=== PATIENT | male | born 1955 | race Hispanic/Latino ===

== ENCOUNTER 2017-02-15 15:12 | Observation (INO) | payer OTHER ==
[2017-02-15 15:12] VITALS: BMI 29.8
[2017-02-15 15:28] VITALS: RESP 18
--- NOTE | 2017-02-15 15:49 | ED PDOC ---
HPI: Psych/Substance Abuse Time Seen by Provider: 02/15/17 15:28 Chief Complaint (Nursing): Alcohol Ingestion Chief Complaint (Provider): ETOH History Per: Patient Additional Complaint(s): HPI: 61 year old patient, with a history of chest pain, coronary stent, hypertension, pancreatitis, CAD, CHF, diverticulitis, diabetes, and emphysema, presents to the ED staing, "I drink because I'm depressed, I want to kill myself." Pt slurring speech and (+) SOB. Past Medical History Reviewed: Historical Data, Nursing Documentation, Vital Signs Vital Signs: Last Vital Signs Temp 99.3 F 02/15/17 15:24 Pulse 84 02/15/17 15:24 Resp 18 02/15/17 15:24 BP 128/68 02/15/17 15:24 Pulse Ox 94 L 02/15/17 15:24 - Medical History PMH: Anemia (iron deficiency), Anxiety, Arthritis, Asthma, Benign Prostatic Hyperplasia, Bipolar Disorder, Bronchitis, CAD, CHF, COPD, Depression, Diabetes , Diverticulitis, Emphysema, Hepatitis (PATIENT STATED HE HAS HEPATITIS BUT COULD NOT RECALL WHICH ONE), HTN, Hypercholesterolemia, Hyperlipidemia, Hypothyroidism, Migraine, Pancreatitis, Pneumonia, Seizures, Sleep Apnea Denies: Chronic Kidney Disease - Surgical History Surgical History: CABG ((quadruple bypass) 2010), Coronary Stent - Family History Family History: States: Unknown Family Hx - Social History Alcohol: > 2 Drinks/Day - Immunization History Hx Tetanus Toxoid Vaccination: Yes Hx Influenza Vaccination: Yes Hx Pneumococcal Vaccination: Yes - Home Medications Home Medications: Ambulatory Orders Medication Instructions Recorded Aspirin [Ecotrin] 81 mg PO DAILY #30 tabec 11/21/16 Multivitamin [Daily Value] 1 each PO DAILY #30 tablet 11/21/16 Pantoprazole [Protonix EC Tab] 40 mg PO DAILY #30 ect 11/21/16 Pravastatin Sodium [Pravachol] 40 mg PO HS #30 tab 11/21/16 Tamsulosin [Flomax] 0.4 mg PO HS #30 cap 11/21/16 Metoprolol Succinate XL [Toprol XL] 50 mg PO BRK 12/10/16 Pletal 100 mg PO BID 12/10/16 Aclidinium [place] [Tudorza 1 puff INH BID 02/09/17 Pressair] Albuterol/Ipratropium [Duoneb 3 1 vial INH DAILY 02/09/17 mg/0.5 mg (3 ml) UD] Cilostazol [Pletal] 1 tab PO DAILY 02/09/17 Topiramate [Topamax] 50 mg PO BID 02/09/17 - Allergies Allergies/Adverse Reactions: Allergies Allergy/AdvReac Type Severity Reaction Status Date / Time No Known Allergies Allergy Verified 02/15/17 15:15 Review of Systems ROS Statement: Except As Marked, All Systems Reviewed And Found Negative Psych: Positive for: Suicidal ideation Physical Exam - Reviewed Nursing Documentation Reviewed: Yes Vital Signs Reviewed: Yes - Physical Exam Appears: Positive for: Well, Non-toxic, No Acute Distress Head Exam: Positive for: ATRAUMATIC, NORMAL INSPECTION, NORMOCEPHALIC Skin: Positive for: Normal Color, Warm, DRY Eye Exam: Positive for: EOMI, Normal appearance, PERRL ENT: Positive for: Normal ENT Inspection Neck: Positive for: Normal, Painless ROM Cardiovascular/Chest: Positive for: Regular Rate, Rhythm Respiratory: Positive for: CNT, Normal Breath Sounds Gastrointestinal/Abdominal: Positive for: Normal Exam, Bowel Sounds, Soft Back: Positive for: Normal Inspection Extremity: Positive for: Normal ROM Neurologic/Psych: Positive for: Alert, Oriented - Laboratory Results Result Diagrams: 02/15/17 16:20 02/15/17 16:20 - ECG O2 Sat by Pulse Oximetry: 94 Medical Decision Making Medical Decision Making: Pt placed on cardiac cath rn, vitals remain stable Alcohol resulted 344 Crisis made aware of evaluation upon sobriety Case endorsed to MAURILIO Chau at 20:00 pending sorbiety and crisis eval pt asleep on re-eval Disposition - Clinical Impression Clinical Impression: Alcohol abuse with alcohol-induced disorder - Patient ED Disposition Is Patient to be Admitted: No - Disposition Disposition: Transfer of Care ([facility]) Disposition Time: 19:22 Condition: STABLE - POA Present On Arrival: None
[2017-02-15 16:30] LABS: BASO # 0.1 K/uL (0.0-0.2); BASO % 1.8 % (0.0-2.0); EOS # 0.1 K/uL (0.0-0.7); EOS % 1.7 % (0.0-4.0); HEMATOCRIT 30.2 % (35.0-51.0); LYMPH # 1.3 K/uL (1.0-4.3); LYMPH % 26.1 % (20.0-40.0); MEAN CORPUSCULAR HEMOGLOBIN 22.8 pg (27.0-31.0); MEAN CORPUSCULAR HGB CONC 30.3 g/dL (33.0-37.0); MEAN PLATELET VOLUME 8.2 fl (7.2-11.7); MONO # 0.5 K/uL (0.0-0.8); MONO % 10.5 % (0.0-10.0); NEUT # 3.1 K/uL (1.8-7.0); NEUT % 59.9 % (50.0-75.0); WHITE BLOOD COUNT 5.1 K/uL (4.8-10.8)
[2017-02-15 16:41] LABS: URINE BILIRUBIN NEGATIVE (NEGATIVE); URINE BLOOD NEGATIVE (NEGATIVE); URINE COLOR STRAW (YELLOW); URINE GLUCOSE (UA) NEG (Normal); URINE KETONE NEGATIVE (NEGATIVE); URINE LEUKOCYTE ESTERASE NEG Leu/uL (Negative); URINE PROTEIN 30 mg/dL (NEGATIVE); URINE UROBILINOGEN 0.2-1.0 mg/dL (0.2-1.0); WBC URINE < 1 /hpf (0-5)
[2017-02-15 16:52] LABS: ALB/GLOB RATIO 1.1 (1.0-2.1); ALKALINE PHOSPHATASE 65 U/L (38-126); ALT/SGPT 39 U/L (21-72); AST/SGOT 57 U/L (17-59); BILIRUBIN,TOTAL 0.2 mg/dl (0.2-1.3); BLOOD UREA NITROGEN 8 mg/dl (9-20); CALCIUM 8.4 mg/dL (8.4-10.2); CARBON DIOXIDE 26 mmol/L (22-30); CHLORIDE 106 mmol/L (98-107); GFR AFRICAN-AMERICAN > 60; GLUCOSE,RANDOM 102 mg/dL (75-110); POTASSIUM 3.1 MMOL/L (3.6-5.0); SODIUM 145 mmol/l (132-148); TOTAL PROTEIN 7.2 G/DL (6.3-8.2)
[2017-02-15 17:04] LABS: ALCOHOL SERUM 344 mg/dl (0-10)
[2017-02-15] MEDS ORDERED: diaZEpam 10 mg/2 ml Inj ONE (19:20)
[2017-02-15] MEDS ORDERED: diaZEpam 10 mg/2 ml Inj IM ONE (19:24)
[2017-02-16 00:39] VITALS: BP 152/73; PULSE 76; TEMP 98.6; O2SAT 100
--- NOTE | 2017-02-16 02:40 | ED PDOC ---
- Laboratory Results Result Diagrams: 02/15/17 16:20 02/15/17 16:20 - ECG O2 Sat by Pulse Oximetry: 100 - Progress ED Course And Treament: Case endorsed to medical underwriter from Bert THORPE pending clinical sobriety/crisis eval 22:00 Patient sleeping; no distress 02/16/17 00:00 Patient sleeping, no distress 2:00 Patient awake, alert, oriented x 3. Ambulating steady gait. Tolerated juice. Patient evaluated by playground worker; does not meet criteria for admission at this time. Patient stable for discharge Disposition - Clinical Impression Clinical Impression: Alcohol abuse with alcohol-induced disorder - POA Present On Arrival: None - Disposition Disposition: Routine/Home Disposition Time: 02:42 Condition: STABLE
== END 2017-02-16 02:38 | disposition home or self-care (01) ==
LOC: H.ER 15:12 → H.EROBSV 15:49
PROVIDERS: ADMIT Emergency Medicine; ATTEND Emergency Medicine
DX: F10.19 Alcohol abuse with unspecified alcohol-induced disorder (principal); E03.9 Hypothyroidism, unspecified; E78.00 Pure hypercholesterolemia, unspecified; E78.5 Hyperlipidemia, unspecified; F31.9 Bipolar disorder, unspecified; E11.9 Type 2 diabetes mellitus without complications; I25.10 Atherosclerotic heart disease of native coronary artery without angina pectoris; I50.9 Heart failure, unspecified; I11.0 Hypertensive heart disease with heart failure; Y90.8 Blood alcohol level of 240 mg/100 ml or more; G47.30 Sleep apnea, unspecified; J44.9 Chronic obstructive pulmonary disease, unspecified; N40.0 Benign prostatic hyperplasia without lower urinary tract symptoms; D50.9 Iron deficiency anemia, unspecified; F32.9 Major depressive disorder, single episode, unspecified; F41.9 Anxiety disorder, unspecified; G43.909 Migraine, unspecified, not intractable, without status migrainosus; J18.9 Pneumonia, unspecified organism; M19.90 Unspecified osteoarthritis, unspecified site; R56.9 Unspecified convulsions; Z79.82 Long term (current) use of aspirin; Z95.1 Presence of aortocoronary bypass graft; Z95.5 Presence of coronary angioplasty implant and graft
CPT/HCPCS: 80053; 81003; 85025; 99283; G0378; G0480

== ENCOUNTER 2017-08-23 18:40 | Observation (INO) | payer MEDICARE, MEDICAID ==
[2017-08-23 18:40] VITALS: BMI 29.8
[2017-08-23] MEDS ORDERED: Multivitamin (MVI) 10 ML, Thiamine 100 MG, Folic Acid 1 MG in Sodium Chloride 0.9% 1,00... IV ONE (19:39)
[2017-08-23 20:33] LABS: BASO # 0.1 K/uL (0.0-0.2); BASO % 1.6 % (0.0-2.0); EOS # 0.1 K/uL (0.0-0.7); EOS % 2.5 % (0.0-4.0); HEMATOCRIT 35.2 % (35.0-51.0); LYMPH # 1.5 K/uL (1.0-4.3); LYMPH % 32.6 % (20.0-40.0); MEAN CORPUSCULAR HEMOGLOBIN 25.2 pg (27.0-31.0); MEAN CORPUSCULAR HGB CONC 31.2 g/dL (33.0-37.0); MONO # 0.6 K/uL (0.0-0.8); MONO % 13.3 % (0.0-10.0); NEUT # 2.4 K/uL (1.8-7.0); RED CELL DISTRIBUTION WIDTH 19.1 % (11.5-14.5); WHITE BLOOD COUNT 4.7 K/uL (4.8-10.8)
[2017-08-23 20:45] LABS: ALCOHOL SERUM 89 mg/dl (0-10); ALKALINE PHOSPHATASE 87 U/L (38-126); ALT/SGPT 35 U/L (21-72); AST/SGOT 36 U/L (17-59); BILIRUBIN,TOTAL 0.2 mg/dl (0.2-1.3); BLOOD UREA NITROGEN 7 mg/dl (9-20); CALCIUM 8.7 mg/dL (8.4-10.2); CARBON DIOXIDE 24 mmol/L (22-30); CHLORIDE 109 mmol/L (98-107); GFR AFRICAN-AMERICAN > 60; GLUCOSE,RANDOM 97 mg/dL (75-110); POTASSIUM 3.5 MMOL/L (3.6-5.0); SODIUM 144 mmol/l (132-148); TOTAL PROTEIN 7.3 G/DL (6.3-8.2)
--- NOTE | 2017-08-23 20:59 | ED PDOC ---
HPI: Chest Pain Time Seen by Provider: 08/23/17 19:21 Chief Complaint (Nursing): Chest Pain Chief Complaint (Provider): chest pain History Per: Patient History/Exam Limitations: no limitations Onset/Duration Of Symptoms: Hrs Current Symptoms Are (Timing): Still Present Quality: "Pain" Additional History Per: Patient Additional Complaint(s): 61 y/o male presents with left-sided chest pain x 2 hours. Patient states he was cooking dinner when symptoms started, which have been constant since then. Associated nausea. Patient admits to drinking today, states he drinks daily. Denies fever, cough, congestion, vomiting, shortness of breath, palpitations, abdominal pain, changes in bowel movements, recent travel, sick contacts. Past Medical History Reviewed: Historical Data, Nursing Documentation, Vital Signs Vital Signs: Last Vital Signs Temp 98.2 F 08/24/17 05:22 Pulse 80 08/24/17 05:22 Resp 18 08/24/17 05:22 BP 172/77 H 08/24/17 05:22 Pulse Ox 96 08/24/17 05:22 - Medical History PMH: Anemia (iron deficiency), Anxiety, Arthritis, Asthma, Benign Prostatic Hyperplasia, Bipolar Disorder, Bronchitis, CAD, CHF, COPD, Depression, Diabetes , Diverticulitis, Emphysema, Hepatitis (PATIENT STATED HE HAS HEPATITIS BUT COULD NOT RECALL WHICH ONE), HTN, Hypercholesterolemia, Hyperlipidemia, Hypothyroidism, Migraine, Pancreatitis, Pneumonia, Seizures, Sleep Apnea Denies: HIV, Chronic Kidney Disease, Sexually Transmitted Disease - Surgical History Surgical History: CABG ((quadruple bypass) 2010), Coronary Stent - Family History Family History: States: Unknown Family Hx - Immunization History Hx Tetanus Toxoid Vaccination: Yes Hx Influenza Vaccination: Yes Hx Pneumococcal Vaccination: Yes - Home Medications Home Medications: Ambulatory Orders Medication Instructions Recorded Gabapentin [Neurontin] 300 mg PO TID #90 cap 02/26/17 Topiramate [Topamax] 100 mg PO BID #60 tab 02/26/17 Aspirin [Lo-Dose Aspirin EC] 81 mg PO DAILY 08/23/17 Losartan [Cozaar] 50 mg PO DAILY 08/23/17 - Allergies Allergies/Adverse Reactions: Allergies Allergy/AdvReac Type Severity Reaction Status Date / Time No Known Allergies Allergy Verified 08/23/17 18:45 ANISHA Risk Score for UA/NSTEMI - ANISHA Risk Score Age > 64: NO 3 or more CAD Risk Factors: YES Known CAD (Stenosis greater than 50%): YES Aspirin use in past 7 days: NO Severe Angina: NO EKG ST changes greater than 0.5mm: NO Positive Cardiac Marker: NO ANISHA Score: 2 Risk %: 8% Wells Criteria for PE - Wells Criteria for Pulmonary Embolism Clinical Signs and Symptoms of DVT: No P.E is #1 Diagnosis, or Equally Likely: No Heart Rate >100: No Immobilization at least 3 days;Surgery previous 4 weeks: No Previous, objectively diagnosed PE or DVT: No Hemoptysis: No Malignancy w/treatment within 6 months, or palliative: No Total Score: 0 Review of Systems ROS Statement: Except As Marked, All Systems Reviewed And Found Negative Cardiovascular: Positive for: Chest Pain Physical Exam - Reviewed Nursing Documentation Reviewed: Yes Vital Signs Reviewed: Yes - Physical Exam Appears: Positive for: Well, Non-toxic, No Acute Distress Head Exam: Positive for: ATRAUMATIC, NORMAL INSPECTION, NORMOCEPHALIC Skin: Positive for: Normal Color Eye Exam: Positive for: Normal appearance ENT: Positive for: Normal ENT Inspection Cardiovascular/Chest: Positive for: Regular Rate, Rhythm Respiratory: Positive for: Normal Breath Sounds Gastrointestinal/Abdominal: Positive for: Normal Exam Back: Positive for: Normal Inspection Extremity: Positive for: Normal ROM Neurologic/Psych: Positive for: Alert, Oriented - Laboratory Results Result Diagrams: 08/23/17 20:27 08/23/17 20:27 - ECG ECG: Positive for: Viewed By Me (reviewed by ED attending) ECG Rhythm: Positive for: Sinus Rhythm, Nonspecific Changes O2 Sat by Pulse Oximetry: 99 Pulse Ox Interpretation: Normal - Radiology X-Ray: Viewed By Me X-Ray Interpretation: No Acute Disease - Progress ED Course And Treament: labs, ekg, chest xray, asa PO, IV zofran, IV pepcid, IV fluids, IV banana bag Case discussed with Dr. Feldman for placement in tele observation for chest pain Disposition - Clinical Impression Clinical Impression: Chest pain, Alcohol dependence - Patient ED Disposition Is Patient to be Admitted: Yes - Disposition Disposition Time: 21:05 Condition: FAIR
[2017-08-23] MEDS ORDERED: Sodium Chloride 0.9% 1,000 ML IV STA (21:13)
[2017-08-24] MEDS: Sodium Chloride 0.9% 1,000 ML IV SCH ×2 (02:17→15:07)
[2017-08-24 05:38] LABS: BASO # 0.1 K/uL (0.0-0.2); EOS # 0.2 K/uL (0.0-0.7); EOS % 2.4 % (0.0-4.0); HEMATOCRIT 34.3 % (35.0-51.0); LYMPH # 1.5 K/uL (1.0-4.3); LYMPH % 20.1 % (20.0-40.0); MEAN CELL VOLUME 81.5 fl (80.0-94.0); MEAN CORPUSCULAR HEMOGLOBIN 24.8 pg (27.0-31.0); MEAN CORPUSCULAR HGB CONC 30.5 g/dL (33.0-37.0); MEAN PLATELET VOLUME 8.6 fl (7.2-11.7); MONO # 0.8 K/uL (0.0-0.8); MONO % 11.2 % (0.0-10.0); NEUT # 4.7 K/uL (1.8-7.0); NEUT % 65.3 % (50.0-75.0); RED CELL DISTRIBUTION WIDTH 18.5 % (11.5-14.5); WHITE BLOOD COUNT 7.3 K/uL (4.8-10.8)
[2017-08-24 06:09] LABS: BLOOD UREA NITROGEN 6 mg/dl (9-20); CALCIUM 8.2 mg/dL (8.4-10.2); CARBON DIOXIDE 26 mmol/L (22-30); CHLORIDE 109 mmol/L (98-107); CHOLESTEROL 194 mg/dL (0-199); GFR AFRICAN-AMERICAN > 60; GLUCOSE,RANDOM 83 mg/dL (75-110); MAGNESIUM 1.4 MG/DL (1.6-2.3); POTASSIUM 3.5 MMOL/L (3.6-5.0); SODIUM 143 mmol/l (132-148)
[2017-08-24 06:34] LABS: THYROID STIMULATING HORMONE 2.84 mIU/ML (0.46-4.68)
[2017-08-24] MEDS: Insulin Lispro (humaLOG) 100 Units/ml Inj SC SCH ×2 (06:42→12:00)
--- NOTE | 2017-08-24 08:29 | RAD ---
HISTORY: chest pain COMPARISON: Portable chest 11/05/2015. TECHNIQUE: Chest PA and lateral FINDINGS: LUNGS: Linear atelectasis or fibrosis is seen at the left base. No alveolar infiltrate bilaterally. PLEURA: No significant pleural effusion identified. No pneumothorax apparent. CARDIOVASCULAR: Cardiomegaly appears stable. No pulmonary derangement evident. Post CABG changes are again identified including sternotomy wires and mediastinal OSSEOUS STRUCTURES: Surgical clips. VISUALIZED UPPER ABDOMEN: Normal. OTHER FINDINGS: None. IMPRESSION: No interval acute cardiopulmonary disease appreciated.No acute infiltrate bilaterally. Linear atelectasis or fibrosis left base.
[2017-08-24] MEDS ORDERED: Enoxaparin 40 mg Syringe SC SCH (09:00)
--- NOTE | 2017-08-24 09:21 | CP.PCM.CON ---
History of Present Illness - History of Present Illness History of Present Illness: This 61-year-old man was hospitalized last night from the emergency room after he complained of chest discomfort intermittently poorly responsive to sublingual nitroglycerin. The patient gives history of being a diabetic and a heavy smoker for number of years and also admits to having emphysema as well as severe claudication on walking approximately one block. He is aware off poor arterial blood flow to his legs. He gives history of having suffered 2 myocardial infarcts before he underwent coronary bypass graft surgery in 2010. The patient required stenting of posterior descending artery in May 2015. A nuclear stress test in June 2017 did not show any significant myocardial ischemia. By his own admission the patient is noncompliant as far as his glycemic control and regularity of taking his medications and avoiding smoking is concerned. He does not describe symptoms of congestive cardiac failure in the form of orthopnea. The patient has had numerous visits to the emergency room at [facility] and to this institution as well. Physical examination shows a middle aged man sitting up in the bed eating breakfast. He complains of a mild sense of discomfort in the left pectoral region which is reproduced by gently pressing in this region as well as movement of the left shoulder is also mildly uncomfortable reproducing discomfort that he describes off and on as an outpatient. He was afebrile and breathing at 16-18 breaths per minute with a heart rate of 78 bpm and regular and a blood pressure of 164/70 mmHg. His jugular venous pressure was not elevated and there was no edema hour his lower extremities. The pedal pulses were not palpable. There were no carotid bruits. A scar of sternotomy was evident. His extremities were warm. His nailbeds were pink. No central or peripheral cyanosis was evident. [place] was not palpable. The first and second heart sounds were normal with a brief apical systolic murmur suggestive of mitral regurgitation. There were scattered rhonchi all over his chest no rales were audible. Abdomen was soft given and spleen are not palpable. His electrocardiogram showed sinus rhythm with poor progression of R wave from V1 to V3 suggestive of an old septal wall myocardial infarction. There were nonspecific ST-T changes. Lab results showed no evidence of elevated troponin indicatingthat no myocyte injury has occurred. The rest of his labs were noted Impression: Left pectoral pain probably of chest wall origin with no evidence of acute coronary syndrome in a patient with known coronary artery disease with prior myocardial infarcts and status post coronary bypass graft surgery and status post coronary stenting. Peripheral arterial disease. Diabetes mellitus. Chronic cigarette use with emphysema. History of alcohol abuse. In the last set of cardiac enzymes is normal, the patient may be allowed to return home. A recent nuclear stress test in June as indicated that myocardial perfusion patterns appears stable at this juncture. The patient can be managed as an outpatient. I stressed the importance of quitting smoking given his multiple circulatory challenges and presence of diabetes mellitus. Past Patient History - Infectious Disease Hx of Infectious Diseases: None - Past Medical History & Family History Past Medical History?: Yes - Past Social History Smoking Status: Heavy Smoker > 10 Cigarettes Daily - CARDIAC Hx Congestive Heart Failure: Yes Hx Hypercholesterolemia: Yes Hx Hypertension: Yes - PULMONARY Hx Asthma: Yes Hx Bronchitis: Yes Hx Chronic Obstructive Pulmonary Disease (COPD): Yes Hx Emphysema: Yes Hx Pneumonia: Yes Hx Sleep Apnea: Yes - NEUROLOGICAL Hx Migraine: Yes Hx Seizures: Yes - HEENT Hx HEENT Problems: No - RENAL Hx Chronic Kidney Disease: No - ENDOCRINE/METABOLIC Hx Hypothyroidism: Yes - HEMATOLOGICAL/ONCOLOGICAL Hx Anemia: Yes (iron deficiency) Hx Human Immunodeficiency Virus (HIV): No - INTEGUMENTARY Hx Dermatological Problems: No - MUSCULOSKELETAL/RHEUMATOLOGICAL Hx Arthritis: Yes - GASTROINTESTINAL Hx Diverticulitis: Yes Hx Pancreatitis: Yes - GENITOURINARY/GYNECOLOGICAL Hx Sexually Transmitted Disorders: No - PSYCHIATRIC Hx Anxiety: Yes Hx Bipolar Disorder: Yes Hx Depression: Yes - SURGICAL HISTORY Hx Coronary Artery Bypass Graft: Yes ((quadruple bypass) 2010) Hx Coronary Stent: Yes - ANESTHESIA Hx Anesthesia: Yes Hx Anesthesia Reactions: No Hx Malignant Hyperthermia: No Meds Allergies/Adverse Reactions: Allergies Allergy/AdvReac Type Severity Reaction Status Date / Time No Known Allergies Allergy Verified 08/23/17 18:45 - Medications Medications: Current Medications Aspirin (Aspirin) 325 mg PO DAILY [facility] Atorvastatin Calcium (Lipitor) 20 mg PO HS [facility] Chlordiazepoxide (Librium) 20 mg PO Q8 [facility] Last Admin: 08/24/17 06:35 Dose: 20 mg Enoxaparin Sodium (Lovenox) 40 mg SC DAILY [facility] PRN Reason: Protocol Folic Acid (Folic Acid) 1 mg PO DAILY [facility] Gabapentin (Neurontin) 300 mg PO TID [facility] Sodium Chloride (Sodium Chloride 0.9%) 1,000 mls @ 80 mls/hr IV .[id number] [facility] Stop: 08/25/17 00:45 Last Admin: 08/24/17 02:17 Dose: 80 mls/hr Insulin Human Lispro (Humalog) 0 units SC ACCU-CHECK [facility] PRN Reason: Protocol Last Admin: 08/24/17 06:42 Dose: Not Given Losartan Potassium (Cozaar) 50 mg PO DAILY [facility] Thiamine HCl (Vitamin B1 Tab) 100 mg PO DAILY [facility] Topiramate (Topamax) 100 mg PO BID [facility] Results - Vital Signs Recent Vital Signs: Last Vital Signs Temp 98.4 F 08/24/17 07:54 Pulse 80 08/24/17 07:54 Resp 18 08/24/17 07:54 BP 177/77 H 08/24/17 07:54 Pulse Ox 96 08/24/17 07:54 - Labs Result Diagrams: 08/24/17 04:25 08/24/17 04:25 Labs: Laboratory Results - last 24 hr 08/23/17 08/23/17 08/23/17 20:27 20:27 23:03 WBC 4.7 L RBC 4.34 L Hgb 11.0 L Hct 35.2 MCV 81.0 D MCH 25.2 L MCHC 31.2 L RDW 19.1 H Plt Count 152 MPV 8.0 Neut % (Auto) 50.0 Lymph % (Auto) 32.6 [place] % (Auto) 13.3 H Eos % (Auto) 2.5 Baso % (Auto) 1.6 Neut # 2.4 Lymph # 1.5 [place] # 0.6 Eos # 0.1 Baso # 0.1 Sodium 144 Potassium 3.5 L Chloride 109 H Carbon Dioxide 24 Anion Gap 15 BUN 7 L Creatinine 0.8 Est GFR ( Amer) > 60 Est GFR (Non-Af Amer) > 60 Random Glucose 97 Calcium 8.7 Magnesium Total Bilirubin 0.2 AST 36 ALT 35 Alkaline Phosphatase 87 Troponin I 0.0350 Total Protein 7.3 Albumin 3.7 Globulin 3.6 Albumin/Globulin Ratio 1.0 Triglycerides Cholesterol LDL Cholesterol Direct HDL Cholesterol TSH 3rd Generation Urine Opiates Screen Negative Urine Methadone Screen Negative Ur Barbiturates Screen Negative Ur Phencyclidine Scrn Negative Ur Amphetamines Screen Negative U Benzodiazepines Scrn Negative U Oth Cocaine Metabols Negative U Cannabinoids Screen Negative Alcohol, Quantitative 89 H 08/24/17 08/24/17 04:25 04:25 WBC 7.3 D RBC 4.21 L Hgb 10.5 L Hct 34.3 L MCV 81.5 MCH 24.8 L MCHC 30.5 L RDW 18.5 H Plt Count 130 MPV 8.6 Neut % (Auto) 65.3 Lymph % (Auto) 20.1 [place] % (Auto) 11.2 H Eos % (Auto) 2.4 Baso % (Auto) 1.0 Neut # 4.7 Lymph # 1.5 [place] # 0.8 Eos # 0.2 Baso # 0.1 Sodium 143 Potassium 3.5 L Chloride 109 H Carbon Dioxide 26 Anion Gap 12 BUN 6 L Creatinine 0.9 Est GFR ( Amer) > 60 Est GFR (Non-Af Amer) > 60 Random Glucose 83 Calcium 8.2 L Magnesium 1.4 L Total Bilirubin AST ALT Alkaline Phosphatase Troponin I 0.0460 Total Protein Albumin Globulin Albumin/Globulin Ratio Triglycerides 52 D Cholesterol 194 LDL Cholesterol Direct 129 HDL Cholesterol 57 TSH 3rd Generation 2.84 Urine Opiates Screen Urine Methadone Screen Ur Barbiturates Screen Ur Phencyclidine Scrn Ur Amphetamines Screen U Benzodiazepines Scrn U Oth Cocaine Metabols U Cannabinoids Screen Alcohol, Quantitative
[2017-08-24] MEDS ORDERED: Magnesium Oxide 400 mg Tab UD PO SCH (13:30)
--- NOTE | 2017-08-24 15:34 | CP.PCM.HP ---
History of Present Illness - History of Present Illness History of Present Illness: CC: Chest Pain History of Present Illness: 61 y/o male presents with left-sided chest pain x 2 hours. Patient states he was cooking dinner when symptoms started, which have been constant since then. Associated nausea. Patient admits to drinking today, states he drinks daily. Denies fever, cough, congestion, vomiting, shortness of breath, palpitations, abdominal pain, changes in bowel movements, recent travel, sick contacts. Tool Setter evaluated the patient and cleared for d/c home as Recent extensive Cardiac work up was negative. Alessandro TTE showed EFF about 55%. COPD on Home Oxygen. Continue to smoke and ETOH use Present on Admission - Present on Admission Any Indicators Present on Admission: No History of DVT/PE: No History of Uncontrolled Diabetes: No Urinary Catheter: No Decubitus Ulcer Present: No Review of Systems - Review of Systems All systems: reviewed and no additional remarkable complaints except Past Patient History - Infectious Disease Hx of Infectious Diseases: None - Past Medical History & Family History Past Medical History?: Yes Past Family History: Reviewed and not pertinent - Past Social History Smoking Status: Heavy Smoker > 10 Cigarettes Daily Alcohol: > 2 Drinks/Day Drugs: Denies - CARDIAC Hx Cardiac Disorders: Yes Hx Congestive Heart Failure: No Hx Hypercholesterolemia: Yes Hx Hypertension: Yes Other/Comment: CAD - PULMONARY Hx Asthma: Yes Hx Bronchitis: Yes Hx Chronic Obstructive Pulmonary Disease (COPD): Yes Hx Emphysema: Yes Hx Pneumonia: Yes Hx Sleep Apnea: Yes - NEUROLOGICAL Hx Migraine: Yes Hx Seizures: Yes - HEENT Hx HEENT Problems: No - RENAL Hx Chronic Kidney Disease: No - ENDOCRINE/METABOLIC Hx Hypothyroidism: Yes - HEMATOLOGICAL/ONCOLOGICAL Hx Anemia: Yes (iron deficiency) Hx Human Immunodeficiency Virus (HIV): No - INTEGUMENTARY Hx Dermatological Problems: No - MUSCULOSKELETAL/RHEUMATOLOGICAL Hx Arthritis: Yes - GASTROINTESTINAL Hx Diverticulitis: Yes Hx Pancreatitis: Yes - GENITOURINARY/GYNECOLOGICAL Hx Sexually Transmitted Disorders: No - PSYCHIATRIC Hx Anxiety: Yes Hx Bipolar Disorder: Yes Hx Depression: Yes - SURGICAL HISTORY Hx Coronary Artery Bypass Graft: Yes ((quadruple bypass) 2010) Hx Coronary Stent: Yes - ANESTHESIA Hx Anesthesia: Yes Hx Anesthesia Reactions: No Hx Malignant Hyperthermia: No Meds Home Medications: Home Medication List Medication Instructions Recorded Confirmed Type Folic Acid 1 mg PO DAILY #30 tab 08/24/17 Rx Thiamine [Vitamin B1 Tab] 100 mg PO DAILY tab 08/24/17 Rx Allergies/Adverse Reactions: Allergies Allergy/AdvReac Type Severity Reaction Status Date / Time No Known Allergies Allergy Verified 08/23/17 18:45 Physical Exam - Constitutional Appears: Well, No Acute Distress - Head Exam Head Exam: ATRAUMATIC, NORMAL INSPECTION, NORMOCEPHALIC - Eye Exam Eye Exam: EOMI, Normal appearance, PERRL Pupil Exam: NORMAL ACCOMODATION, PERRL - ENT Exam ENT Exam: Mucous Membranes Moist, Normal Exam - Neck Exam Neck exam: Positive for: Full Rom, Normal Inspection - Respiratory Exam Respiratory Exam: Clear to Auscultation Bilateral, NORMAL BREATHING PATTERN - Cardiovascular Exam Cardiovascular Exam: REGULAR RHYTHM, +S1, +S2 - GI/Abdominal Exam GI & Abdominal Exam: Normal Bowel Sounds, Soft. absent: Guarding, Tenderness - Extremities Exam Extremities exam: Positive for: normal inspection. Negative for: calf tenderness - Neurological Exam Neurological exam: Alert, CN II-XII Intact, Normal Gait, Oriented x3, Reflexes Normal - Psychiatric Exam Psychiatric exam: Normal Affect, Normal Mood - Skin Skin Exam: Dry, Intact, Normal Color, Warm Results - Vital Signs Recent Vital Signs: Last Vital Signs Temp 99.4 F 08/24/17 15:32 Pulse 71 08/24/17 15:32 Resp 18 08/24/17 15:32 BP 160/78 H 08/24/17 15:32 Pulse Ox 96 08/24/17 15:32 - Labs Result Diagrams: 08/24/17 04:25 08/24/17 04:25 Labs: Laboratory Results - last 24 hr 08/23/17 08/23/17 08/23/17 20:27 20:27 23:03 WBC 4.7 L RBC 4.34 L Hgb 11.0 L Hct 35.2 MCV 81.0 D MCH 25.2 L MCHC 31.2 L RDW 19.1 H Plt Count 152 MPV 8.0 Neut % (Auto) 50.0 Lymph % (Auto) 32.6 Mcdonald % (Auto) 13.3 H Eos % (Auto) 2.5 Baso % (Auto) 1.6 Neut # 2.4 Lymph # 1.5 Mcdonald # 0.6 Eos # 0.1 Baso # 0.1 Sodium 144 Potassium 3.5 L Chloride 109 H Carbon Dioxide 24 Anion Gap 15 BUN 7 L Creatinine 0.8 Est GFR ( Amer) > 60 Est GFR (Non-Af Amer) > 60 POC Glucose (mg/dL) Random Glucose 97 Hemoglobin A1c Calcium 8.7 Magnesium Total Bilirubin 0.2 AST 36 ALT 35 Alkaline Phosphatase 87 Troponin I 0.0350 Total Protein 7.3 Albumin 3.7 Globulin 3.6 Albumin/Globulin Ratio 1.0 Triglycerides Cholesterol LDL Cholesterol Direct HDL Cholesterol TSH 3rd Generation Urine Opiates Screen Negative Urine Methadone Screen Negative Ur Barbiturates Screen Negative Ur Phencyclidine Scrn Negative Ur Amphetamines Screen Negative U Benzodiazepines Scrn Negative U Oth Cocaine Metabols Negative U Cannabinoids Screen Negative Alcohol, Quantitative 89 H 08/24/17 08/24/17 08/24/17 04:25 04:25 04:25 WBC 7.3 D RBC 4.21 L Hgb 10.5 L Hct 34.3 L MCV 81.5 MCH 24.8 L MCHC 30.5 L RDW 18.5 H Plt Count 130 MPV 8.6 Neut % (Auto) 65.3 Lymph % (Auto) 20.1 Mcdonald % (Auto) 11.2 H Eos % (Auto) 2.4 Baso % (Auto) 1.0 Neut # 4.7 Lymph # 1.5 Mcdonald # 0.8 Eos # 0.2 Baso # 0.1 Sodium 143 Potassium 3.5 L Chloride 109 H Carbon Dioxide 26 Anion Gap 12 BUN 6 L Creatinine 0.9 Est GFR ( Amer) > 60 Est GFR (Non-Af Amer) > 60 POC Glucose (mg/dL) Random Glucose 83 Hemoglobin A1c 5.1 Calcium 8.2 L Magnesium 1.4 L Total Bilirubin AST ALT Alkaline Phosphatase Troponin I 0.0460 Total Protein Albumin Globulin Albumin/Globulin Ratio Triglycerides 52 D Cholesterol 194 LDL Cholesterol Direct 129 HDL Cholesterol 57 TSH 3rd Generation 2.84 Urine Opiates Screen Urine Methadone Screen Ur Barbiturates Screen Ur Phencyclidine Scrn Ur Amphetamines Screen U Benzodiazepines Scrn U Oth Cocaine Metabols U Cannabinoids Screen Alcohol, Quantitative 08/24/17 08/24/17 08/24/17 06:38 11:11 12:30 WBC RBC Hgb Hct MCV MCH MCHC RDW Plt Count MPV Neut % (Auto) Lymph % (Auto) Mcdonald % (Auto) Eos % (Auto) Baso % (Auto) Neut # Lymph # Mcdonald # Eos # Baso # Sodium Potassium Chloride Carbon Dioxide Anion Gap BUN Creatinine Est GFR ( Amer) Est GFR (Non-Af Amer) POC Glucose (mg/dL) 85 97 Random Glucose Hemoglobin A1c Calcium Magnesium Total Bilirubin AST ALT Alkaline Phosphatase Troponin I 0.0380 Total Protein Albumin Globulin Albumin/Globulin Ratio Triglycerides Cholesterol LDL Cholesterol Direct HDL Cholesterol TSH 3rd Generation Urine Opiates Screen Urine Methadone Screen Ur Barbiturates Screen Ur Phencyclidine Scrn Ur Amphetamines Screen U Benzodiazepines Scrn U Oth Cocaine Metabols U Cannabinoids Screen Alcohol, Quantitative Assessment & Plan (1) Chest pain Assessment and Plan: ACS Ruled out Recent Cardiac Stress test and Cardiac Cath done were negative Tool Setter Cleared the patient for D/C Status: Chronic Priority: Low (2) Alcohol dependence Status: Chronic (3) CAD (coronary artery disease) Status: Chronic (4) Moderate major depression, single episode Status: Chronic Priority: Low
[2017-08-24 19:22] VITALS: BP 172/74; PULSE 80; RESP 19; TEMP 99.8; O2SAT 97
--- NOTE | 2017-08-25 09:52 | CARD ---
APPROVED REPORT EXAM: Two-dimensional and M-mode echocardiogram with Doppler and color Doppler. Other Information Quality : GoodRhythm : NSR INDICATION Chest Pain Surgery/Intervention CABG: Date: 2010 2D DIMENSIONS IVSd1.01 (0.7-1.1cm)LVDd4.32 (3.9-5.9cm) LVOT Diameter2.28 (1.8-2.4cm)PWd1.36 (0.7-1.1cm) IVSs1.55 (0.8-1.2cm)LVDs3.29 (2.5-4.0cm) FS (%) 23.8 %PWs1.11 (0.8-1.2cm) M-Mode DIMENSIONS Left Atrium (MM)5.03 (2.5-4.0cm)IVSd1.47 (0.7-1.1cm) Aortic Root3.35 (2.2-3.7cm)LVDd4.24 (4.0-5.6cm) Aortic Cusp Exc.1.62 (1.5-2.0cm)PWd1.21 (0.7-1.1cm) IVSs1.71 cmFS (%) 38 % LVDs2.65 (2.0-3.8cm)PWs1.88 cm Mitral Valve MV E Oukmahsx543.4cm/sMV DECEL BPFQ640thPN A Rnlcijsy14.9cm/s MV MHS65lvT/A ratio1.7MVA (PHT)4.52cm2 TDI Medial E' Peak V8.72cm/sE/Lateral E'0.0E/Medial E'15.4 Pulmonary Valve PV Peak Jwiprhea48.4cm/s LEFT VENTRICLE The left ventricle is normal size. There is normal left ventricular wall thickness. The left ventricular function is normal. The left ventricular ejection fraction is 55-60% There is normal LV segmental wall motion. The left ventricular diastolic function is normal. No left ventricle thrombus noted on this study. There is no ventricular septal defect visualized. There is no left ventricular aneurysm. There is no mass noted in the left ventricle. RIGHT VENTRICLE The right ventricle is normal size. There is normal right ventricular wall thickness. The right ventricular systolic function is normal. ATRIA The left atrium size is normal. The right atrium size is normal. The interatrial septum is intact with no evidence for an atrial septal defect. AORTIC VALVE The aortic valve is mildly to moderately sclerotic. No aortic regurgitation is present. There is no aortic valvular stenosis. There is no aortic valvular vegetation. MITRAL VALVE The mitral valve is normal in structure. There is no evidence of mitral valve prolapse. There is no mitral valve stenosis. There is no mitral valve regurgitation noted. TRICUSPID VALVE The tricuspid valve is normal in structure. There is no tricuspid valve regurgitation noted. There is no tricuspid valve prolapse or vegetation. There is no tricuspid valve stenosis. PULMONIC VALVE The pulmonary valve is normal in structure. There is no pulmonic valvular regurgitation. There is no pulmonic valvular stenosis. GREAT VESSELS The aortic root is normal in size. The ascending aorta is normal in size. The IVC is normal in size and collapses >50% with inspiration. PERICARDIAL EFFUSION The pericardium appears normal. There is no pleural effusion. <Conclusion> Normal LV Systolic Function Aortic Sclerosis
--- NOTE | 2017-08-25 11:25 | CARD ---
APPROVED REPORT EKG Measurement Heart [id number] <Conclusion> Normal sinus rhythm Possible Left atrial enlargement Nonspecific ST and T wave abnormality Prolonged QT Abnormal ECG
--- NOTE | 2017-08-25 11:51 | CARD ---
APPROVED REPORT EKG Measurement Heart [id number] <Conclusion> Normal sinus rhythm Possible Left atrial enlargement Cannot rule out Anterior infarct, age undetermined Abnormal ECG
--- NOTE | 2017-08-25 23:48 | CP.PCM.DIS ---
Provider - Provider Date of Admission: 08/23/17 21:05 Attending physician: Matilde Feldman MD Time Spent in preparation of Discharge (in minutes): 20 Diagnosis - Discharge Diagnosis (1) Chest pain Status: Chronic Priority: Low (2) Alcohol dependence Status: Chronic (3) CAD (coronary artery disease) Status: Chronic (4) Moderate major depression, single episode Status: Chronic Priority: Low Hospital Course - Lab Results Lab Results: Most Recent Lab Values WBC 7.3 K/uL (4.8-10.8) D 08/24/17 04:25 RBC 4.21 Mil/uL (4.40-5.90) L 08/24/17 04:25 Hgb 10.5 g/dL (12.0-18.0) L 08/24/17 04:25 Hct 34.3 % (35.0-51.0) L 08/24/17 04:25 MCV 81.5 fl (80.0-94.0) 08/24/17 04:25 MCH 24.8 pg (27.0-31.0) L 08/24/17 04:25 MCHC 30.5 g/dL (33.0-37.0) L 08/24/17 04:25 RDW 18.5 % (11.5-14.5) H 08/24/17 04:25 Plt Count 130 K/uL (130-400) 08/24/17 04:25 MPV 8.6 fl (7.2-11.7) 08/24/17 04:25 Neut % (Auto) 65.3 % (50.0-75.0) 08/24/17 04:25 Lymph % (Auto) 20.1 % (20.0-40.0) 08/24/17 04:25 [place] % (Auto) 11.2 % (0.0-10.0) H 08/24/17 04:25 Eos % (Auto) 2.4 % (0.0-4.0) 08/24/17 04:25 Baso % (Auto) 1.0 % (0.0-2.0) 08/24/17 04:25 Neut # 4.7 K/uL (1.8-7.0) 08/24/17 04:25 Lymph # 1.5 K/uL (1.0-4.3) 08/24/17 04:25 [place] # 0.8 K/uL (0.0-0.8) 08/24/17 04:25 Eos # 0.2 K/uL (0.0-0.7) 08/24/17 04:25 Baso # 0.1 K/uL (0.0-0.2) 08/24/17 04:25 Sodium 143 mmol/l (132-148) 08/24/17 04:25 Potassium 3.5 MMOL/L (3.6-5.0) L 08/24/17 04:25 Chloride 109 mmol/L (98-107) H 08/24/17 04:25 Carbon Dioxide 26 mmol/L (22-30) 08/24/17 04:25 Anion Gap 12 (10-20) 08/24/17 04:25 BUN 6 mg/dl (9-20) L 08/24/17 04:25 Creatinine 0.9 mg/dl (0.8-1.5) 08/24/17 04:25 Est GFR ( Amer) > 60 08/24/17 04:25 Est GFR (Non-Af Amer) > 60 08/24/17 04:25 POC Glucose (mg/dL) 113 mg/dL (65-110) H 08/24/17 15:51 Random Glucose 83 mg/dL (75-110) 08/24/17 04:25 Hemoglobin A1c 5.1 % (4.2-6.5) 08/24/17 04:25 Calcium 8.2 mg/dL (8.4-10.2) L 08/24/17 04:25 Magnesium 1.4 MG/DL (1.6-2.3) L 08/24/17 04:25 Total Bilirubin 0.2 mg/dl (0.2-1.3) 08/23/17 20:27 AST 36 U/L (17-59) 08/23/17 20:27 ALT 35 U/L (21-72) 08/23/17 20:27 Alkaline Phosphatase 87 U/L (38-126) 08/23/17 20:27 Troponin I 0.0380 ng/mL (0.00-0.120) 08/24/17 12:30 Total Protein 7.3 G/DL (6.3-8.2) 08/23/17 20:27 Albumin 3.7 g/dL (3.5-5.0) 08/23/17 20:27 Globulin 3.6 gm/dL (2.2-3.9) 08/23/17 20:27 Albumin/Globulin Ratio 1.0 (1.0-2.1) 08/23/17 20:27 Triglycerides 52 mg/DL (0-149) D 08/24/17 04:25 Cholesterol 194 mg/dL (0-199) 08/24/17 04:25 LDL Cholesterol Direct 129 mg/dL (0-129) 08/24/17 04:25 HDL Cholesterol 57 MG/DL (30-70) 08/24/17 04:25 TSH 3rd Generation 2.84 mIU/ML (0.46-4.68) 08/24/17 04:25 Urine Opiates Screen Negative (NEGATIVE) 08/23/17 23:03 Urine Methadone Screen Negative (NEGATIVE) 08/23/17 23:03 Ur Barbiturates Screen Negative (NEGATIVE) 08/23/17 23:03 Ur Phencyclidine Scrn Negative (NEGATIVE) 08/23/17 23:03 Ur Amphetamines Screen Negative (NEGATIVE) 08/23/17 23:03 U Benzodiazepines Scrn Negative (NEGATIVE) 08/23/17 23:03 U Oth Cocaine Metabols Negative (NEGATIVE) 08/23/17 23:03 U Cannabinoids Screen Negative (NEGATIVE) 08/23/17 23:03 Alcohol, Quantitative 89 mg/dl (0-10) H 08/23/17 20:27 Discharge Exam - Head Exam Head Exam: ATRAUMATIC, NORMAL INSPECTION, NORMOCEPHALIC Discharge Plan - Discharge Medications Prescriptions: Folic Acid 1 mg PO DAILY #30 tab - Follow Up Plan Condition: STABLE Disposition: HOME/ ROUTINE Instructions: Angina (DC) Additional Instructions: If you experience chest pain, tightness, pain in the jaw or left arm not relieve by rest please return to the Emergency room.
== END 2017-08-24 19:52 | disposition home or self-care (01) ==
LOC: H.ER 18:40 → H.ERHOLD 21:05 → H.TEL 08-24 00:17
PROVIDERS: ADMIT Internal Medicine; ATTEND Internal Medicine
DX: R07.9 Chest pain, unspecified (principal); Z99.81 Dependence on supplemental oxygen; J43.9 Emphysema, unspecified; F17.200 Nicotine dependence, unspecified, uncomplicated; F10.20 Alcohol dependence, uncomplicated; I25.10 Atherosclerotic heart disease of native coronary artery without angina pectoris; F32.1 Major depressive disorder, single episode, moderate; I25.2 Old myocardial infarction; Z95.1 Presence of aortocoronary bypass graft; Z95.5 Presence of coronary angioplasty implant and graft; Z91.14 Patient's other noncompliance with medication regimen; E11.51 Type 2 diabetes mellitus with diabetic peripheral angiopathy without gangrene; E78.00 Pure hypercholesterolemia, unspecified; E78.5 Hyperlipidemia, unspecified; E03.9 Hypothyroidism, unspecified; N40.0 Benign prostatic hyperplasia without lower urinary tract symptoms; I10 Essential (primary) hypertension
CPT/HCPCS: 36415; 71020; 80048; 80053; 80061; 82948; 83036; 83735; 84443; 84484; 85025; 93005; 93306; 96374; 99285; G0378; G0480; J1650; J2405; J3411; J7040

== ENCOUNTER 2017-09-19 15:43 | Inpatient (IN) | payer MEDICARE, MEDICAID ==
[2017-09-19 15:45] VITALS: O2SAT 100
--- NOTE | 2017-09-19 15:51 | ED PDOC ---
Psych Transfer Clearance - Clearance Statement Clearance Statement: Reviewed vital signs, lab results and transfer papers. Patient clinically stable for psychiatric admission.
[2017-09-19 16:40] VITALS: BMI 27.9
[2017-09-19] MEDS ORDERED: Bismuth Subsalicylate 262 mg/15 ml Sus (240 ml) PO PRN (16:40)
[2017-09-19] MEDS ORDERED: Alum-Mag Hydrox-Simethicone Susp (30 mL) PO PRN (16:40)
[2017-09-19] MEDS ORDERED: Magnesium Hydroxide Susp 30 ml UD PO PRN (16:40)
--- NOTE | 2017-09-19 18:46 | PCM.BM ---
Treatment Plan Problems - Problems identified on initial assessmt Hopelessness/Helplessness Date Initiated: 09/19/17 Time Initiated: 18:45 Assessment reference: HP NA Status: Active Treatment assets and liabiliti Patient Assests: adapts well, cooperative, ADL independent, negotiates basic needs, cognitively intact Patient Liabilities: substance abuse, medical problems - Milieu Protocol Maintain good personal hygiene: daily Encourage regular showers, daily Remind patient to perform daily oral care, daily Assist patient to perform ADL's Conduct patient checks and document Observation sheet: Q15 minutes Maintain personal safety: every shift Educate patient to report safety concerns to staff, every shift Monitor environment for contraband/sharps Medication safety: Monitor for expected outcome, potential side effects: every shift, Assess barriers to learning: every shift, Assess readiness for medication education: every shift
[2017-09-19 21:09] LABS: URINE AMORPHOUS SEDIMENT RARE /ul (<OCC); URINE BILIRUBIN NEGATIVE (NEGATIVE); URINE BLOOD NEGATIVE (NEGATIVE); URINE CLARITY SLIGHTY-CLOUDY (Clear); URINE COLOR YELLOW (YELLOW); URINE GLUCOSE (UA) NEG (Normal); URINE LEUKOCYTE ESTERASE NEG Leu/uL (Negative); URINE NITRATE NEGATIVE (NEGATIVE); URINE PROTEIN 100 mg/dL (NEGATIVE); URINE UROBILINOGEN 0.2-1.0 mg/dL (0.2-1.0)
[2017-09-20 06:13] LABS: MEAN CELL VOLUME 79.6 fl (80.0-94.0); MEAN CORPUSCULAR HEMOGLOBIN 25.1 pg (27.0-31.0); MEAN CORPUSCULAR HGB CONC 31.5 g/dL (33.0-37.0); RBC 4.38 Mil/uL (4.40-5.90); RED CELL DISTRIBUTION WIDTH 17.4 % (11.5-14.5); WHITE BLOOD COUNT 7.6 K/uL (4.8-10.8)
[2017-09-20 06:26] LABS: ALB/GLOB RATIO 0.9 (1.0-2.1); ALBUMIN 3.3 g/dL (3.5-5.0); ALT/SGPT 34 U/L (21-72); AMYLASE 68 U/L (30-110); AST/SGOT 24 U/L (17-59); BLOOD UREA NITROGEN 12 mg/dl (9-20); CALCIUM 8.7 mg/dL (8.4-10.2); GFR AFRICAN-AMERICAN > 60; GFR NON-AFRICAN AMERICAN > 60; HDL CHOLESTEROL 38 MG/DL (30-70); LIPASE 131 U/L (23-300)
[2017-09-20 06:38] LABS: LDL CHOLESTEROL 105 mg/dL (0-129)
[2017-09-20 07:01] LABS: FERRITIN 8.6 ng/Ml (17.9-464)
--- NOTE | 2017-09-20 09:59 | PCM.PSYCH ---
Initial Psychiatric Evaluation - Initial Psychiatric Evaluation Type of Admission: Voluntary Legal Status: Capacity Chief Complaint (in patient's own words): "I drank and took too many pills." Patient's Reaction to Hospitalization: HPI: 61 yo male w/ h/o depression and ETOH use disorder, history of multiple past psychiatric admissions for depression and ETOH abuse, presented to [facility] w/ ETOH level of 286, reporting that he took a handful of Gabapentin in a suicide attempt. Social stressors include having a strained relationship w / his daughter. He reports depression, feelings of helplessness/hopelessness, low energy, low motivation. He denies current suicidal ideation/plan/intent and can contract for safety. NO AH/VH/paranoia. PPHx: Multiple past psychiatric admissions for depression and ETOH abuse. Recently discharged from [facility] on 09/10/17 (10 days ago) on: Escitalopram [Lexapro] 10 mg PO DAILY #30 tab; Gabapentin [Neurontin] 400 mg PO BID #60 cap; Topiramate [Topamax] 50 mg PO BID #60 tab; traZODone [Desyrel] 100 mg PO HS #30 tab PMHx: H/o seizure disorder, HTN, Asthma, COPD, HLD, PAD, PVD, CAD (s/p bypass), BPH, DM SHx: On disability, has 6 children (39yo, 29yo, 27yo, 27yo, 17yo, 16yo); Drinks 1 pint rum/day; smokes 1ppd ALL: NKDA Current Medications: Active Medications Generic Name Dose Route Start Last Admin Trade Name Freq PRN Reason Stop Dose Admin Acetaminophen 650 mg 09/19/17 16:40 Tylenol 325mg Tab PO Q4 PRN Pain, moderate (4-7) Al Hydrox/Mg Hydrox/Simethicone 30 ml 09/19/17 16:40 Maalox Plus 30 Ml PO Q4 PRN Dyspepsia Bismuth Subsalicylate 524 mg 09/19/17 16:40 Pepto-Bismol PO Q4 PRN Diarrhea Folic Acid 1 mg 09/20/17 09:00 Folic Acid PO DAILY ORIANA Gabapentin 100 mg 09/19/17 17:00 09/19/17 18:24 Neurontin PO 100 mg TID ORIANA Administration Lorazepam 0.5 mg 09/19/17 16:40 Ativan PO 10/03/17 16:41 HS PRN Insomnia Lorazepam 0.5 mg 09/19/17 16:40 Ativan PO 10/03/17 16:41 Q6 PRN Anixety/Agitation Lorazepam 2 mg 09/19/17 22:00 09/20/17 04:27 Ativan PO 2 mg Q6 ORIANA Administration Magnesium Hydroxide 30 ml 09/19/17 16:40 Milk Of Magnesia PO HS PRN Constipation Multivitamins/Minerals 1 tab 09/20/17 09:00 Therapeutic-M Tab PO DAILY ORIANA Thiamine HCl 100 mg 09/20/17 09:00 Vitamin B1 Tab PO DAILY ORIANA Trazodone HCl 50 mg 09/19/17 22:00 09/19/17 21:16 Desyrel PO 50 mg HS ORIANA Administration Past Psychiatric History - Past Psychiatric History Previous Treatment History: Inpatient Pertinent Medical Hx (Current Medical&Sleep Prob, Allergies): Allergies Allergy/AdvReac Type Severity Reaction Status Date / Time No Known Allergies Allergy Verified 09/18/17 17:03 Topiramate [Topamax] 100 mg PO BID #60 tab 02/26/17 Aspirin [Lo-Dose Aspirin EC] 81 mg PO DAILY 08/23/17 Losartan [Cozaar] 50 mg PO DAILY 08/23/17 Folic Acid 1 mg PO DAILY #30 tab 08/24/17 Thiamine [Vitamin B1 Tab] 100 mg PO DAILY tab 08/24/17 Escitalopram [Lexapro] 10 mg PO DAILY #30 tab 09/10/17 Gabapentin [Neurontin] 400 mg PO BID #60 cap 09/10/17 Topiramate [Topamax] 50 mg PO BID #60 tab 09/10/17 traZODone [Desyrel] 100 mg PO HS #30 tab 09/10/17 Albuterol/Ipratropium [Combivent Respimat] 1 puff IH QID 09/19/17 Cilostazol [Pletal] 100 mg PO Q12H 09/19/17 Pantoprazole Sodium [Protonix] 40 mg PO DAILY 09/19/17 Tamsulosin HCl [Flomax] 0.4 mg PO HS 09/19/17 Review of Systems - Psychiatric Psychiatric: As Per HPI, Abnormal Sleep Pattern, Anxiety, Behavioral Changes, Depression, Hopelessness, Irritability, Mood Swings, Suicidal Ideation Mental Status Examination - Personal Presentation Personal Presentation: Looks stated age - Affect Affect: Constricted, Depressed - Motor Activity Motor Activity: Calm - Reliability in Providing Information Reliability in Providing Information: Fair - Speech Speech: Organized - Mood Mood: Depressed - Formal Thought Process Formal Thought Process: No Impairment - Hallucinations/Delusions Additional comments: NO AH/VH/paranoia/delusions - Obsessions/Compulsions Obsessions: No Compulsions: No - Cognitive Functions Orientation: Person, Place, Situation, Time Sensorium: Alert Attention/Concentration: Attentive Judgement: Intact, as evidence by: Insight regarding need for hospitalization Memory: Recent intact, as evidence by: Ability to recall events of the day, Remote intact, as evidenced by: Abilit to recall sig. life events, Remote intact , as evidenced by: Ability to recall historical events - Risk Risk: Suicidal, Diminished functioning - Strength & Assets Inventory Strength & Assets Inventory: Cooperative DSM 5 DX - DSM 5 DSM 5 Diagnosis: Major Depressive Disorder; Alcohol Use Disorder, severe - Recommended/Plan of Treatment Treatment Recommendations and Plan of Treatment: Major Depressive Disorder; Alcohol Use Disorder, severe -Admit to psychiatry unit -No 1:1 indicated at this time as the patient can contract for safety -Individual and group therapy -Ativan for ETOH w/drawal -Thiamine, Folate -Restart Lexapro 10 mg PO Daily, Trazodone 100 mg PO HS, Topamax 50 mg PO BID -Medicine consult -Nicotine patch -Obtain collateral history -Physical therapy screening -Disposition planning Projected ELOS: 7-10 days Discharge Plan and Discharge Criteria: Discharge when the patient is psychiatrically stable - Smoking Cessation Smoking Cessation Initiated: Yes
[2017-09-20] MEDS: Multivitamin With Minerals Tab PO SCH (10:38)
--- NOTE | 2017-09-20 11:36 | CP.PCM.CON ---
History of Present Illness - History of Present Illness History of Present Illness: Reason for Consult: per hospital protocol HPI: 61 M PMH PVD, HTN, GERD, BPH admitted to psych for depression, SI. No complaints at this time, calm. HD STABLE NAD. EKG pending for QT prolongation evaluation. ROS: per HPI all other systems reviewed and negative PMSH: PVD, HTN, GERD, BPH FH: denies SH: denies substance abuse, tobacco, etoh, ivdu Meds as below Allergies: NKDA Vitals reviewed Gen: WDWN, alert, cooperative HEENT: NCAT, PERRL, EOMI HEART: +S1S2, RRR LUNG: CTAB no WRR ABD: soft NT ND no masses no HSM EXT: warm, well perfused NEURO: AAOx3, equal strength bilaterally upper and lower SKIN: warm, dry Psych: normal mood, normal affect LABS Most Recent Lab Values WBC 7.6 K/uL (4.8-10.8) 09/20/17 05:40 RBC 4.38 Mil/uL (4.40-5.90) L 09/20/17 05:40 Hgb 11.0 g/dL (12.0-18.0) L 09/20/17 05:40 Hct 34.9 % (35.0-51.0) L 09/20/17 05:40 MCV 79.6 fl (80.0-94.0) L 09/20/17 05:40 MCH 25.1 pg (27.0-31.0) L 09/20/17 05:40 MCHC 31.5 g/dL (33.0-37.0) L 09/20/17 05:40 RDW 17.4 % (11.5-14.5) H 09/20/17 05:40 Plt Count 198 K/uL (130-400) 09/20/17 05:40 Sodium 140 mmol/l (132-148) 09/20/17 05:40 Potassium 3.5 MMOL/L (3.6-5.0) L 09/20/17 05:40 Chloride 103 mmol/L (98-107) 09/20/17 05:40 Carbon Dioxide 29 mmol/L (22-30) 09/20/17 05:40 Anion Gap 12 (10-20) 09/20/17 05:40 BUN 12 mg/dl (9-20) 09/20/17 05:40 Creatinine 0.9 mg/dl (0.8-1.5) 09/20/17 05:40 Est GFR ( Amer) > 60 09/20/17 05:40 Est GFR (Non-Af Amer) > 60 09/20/17 05:40 POC Glucose (mg/dL) 90 mg/dL (65-110) 09/20/17 05:39 Random Glucose 102 mg/dL (75-110) 09/20/17 05:40 Calcium 8.7 mg/dL (8.4-10.2) 09/20/17 05:40 Ferritin 8.6 ng/Ml (17.9-464) L 09/20/17 05:40 Total Bilirubin 0.5 mg/dl (0.2-1.3) 09/20/17 05:40 AST 24 U/L (17-59) 09/20/17 05:40 ALT 34 U/L (21-72) 09/20/17 05:40 Alkaline Phosphatase 58 U/L (38-126) 09/20/17 05:40 Ammonia 34 umo/L (16-60) D 09/20/17 05:40 Total Protein 6.9 G/DL (6.3-8.2) 09/20/17 05:40 Albumin 3.3 g/dL (3.5-5.0) L 09/20/17 05:40 Globulin 3.6 gm/dL (2.2-3.9) 09/20/17 05:40 Albumin/Globulin Ratio 0.9 (1.0-2.1) L 09/20/17 05:40 Triglycerides 117 mg/DL (0-149) D 09/20/17 05:40 Cholesterol 160 mg/dL (0-199) 09/20/17 05:40 LDL Cholesterol Direct 105 mg/dL (0-129) 09/20/17 05:40 HDL Cholesterol 38 MG/DL (30-70) 09/20/17 05:40 Amylase 68 U/L (30-110) 09/20/17 05:40 Lipase 131 U/L (23-300) 09/20/17 05:40 Vitamin B12 295 pg/mL (239-931) 09/20/17 05:40 Free T4 0.93 ng/dL (0.78-2.19) 09/20/17 05:40 Thyroxine (T4) 6.20 ug/dl (5.5-11.0) 09/20/17 05:40 TSH 3rd Generation 2.30 mIU/ML (0.46-4.68) 09/20/17 05:40 Urine Color Yellow (YELLOW) 09/19/17 20:58 Urine Clarity Slighty-cloudy (Clear) 09/19/17 20:58 Urine pH 6.0 (5.0-8.0) 09/19/17 20:58 Ur Specific [place] 1.025 (1.003-1.030) 09/19/17 20:58 Urine Protein 100 mg/dL (NEGATIVE) 09/19/17 20:58 Urine Glucose (UA) Neg mg/dL (Normal) 09/19/17 20:58 Urine Ketones Negative mg/dL (NEGATIVE) 09/19/17 20:58 Urine Blood Negative (NEGATIVE) 09/19/17 20:58 Urine Nitrate Negative (NEGATIVE) 09/19/17 20:58 Urine Bilirubin Negative (NEGATIVE) 09/19/17 20:58 Urine Urobilinogen 0.2-1.0 mg/dL (0.2-1.0) 09/19/17 20:58 Ur Leukocyte Esterase Neg [place]/uL (Negative) 09/19/17 20:58 Urine RBC (Auto) 3 /hpf (0-3) 09/19/17 20:58 Urine Microscopic WBC 1 /hpf (0-5) 09/19/17 20:58 Amorphous Sediment Rare /ul (<OCC) H 09/19/17 20:58 Assessment and Plan 61 M PMH PVD, HTN, GERD, BPH admitted to psych for depression, SI. No complaints at this time, calm. HD STABLE NAD. EKG pending for QT prolongation evaluation. PVD cont ASA, PLETAL HTN cont Losartan GERD cont protonix BPH cont flomax DEPRESSION management per psych Past Patient History - Infectious Disease Hx of Infectious Diseases: None - Past Medical History & Family History Past Medical History?: Yes - Past Social History Smoking Status: Heavy Smoker > 10 Cigarettes Daily - CARDIAC Hx Cardiac Disorders: Yes Hx Angina: Yes Hx Cardia Arrhythmia: Yes Hx Circulatory Problems: Yes Hx Heart Attack: Yes Hx Heart Murmur: Yes Hx Hypercholesterolemia: Yes Hx Hypertension: Yes Hx Peripheral Vascular Disease: Yes - PULMONARY Hx Bronchitis: Yes Hx Chronic Obstructive Pulmonary Disease (COPD): Yes Hx Emphysema: Yes Hx Pneumonia: Yes Hx Tuberculosis: No - NEUROLOGICAL HX Cerebrovascular Accident: No Hx Seizures: Yes (ETOH related) - HEENT Hx HEENT Problems: No - RENAL Hx Chronic Kidney Disease: Yes (States recent diagnosis) - ENDOCRINE/METABOLIC Hx Diabetes Mellitus Type 2: Yes Hx Hypothyroidism: No - HEMATOLOGICAL/ONCOLOGICAL Hx Blood Transfusions: Yes Hx Cancer: No Hx Hepatitis B: Yes Hx Human Immunodeficiency Virus (HIV): No - INTEGUMENTARY Hx Dermatological Problems: No - MUSCULOSKELETAL/RHEUMATOLOGICAL Hx Arthritis: Yes Hx Back Pain: Yes Hx Falls: Yes Hx Herniated Disk: Yes - GASTROINTESTINAL Hx Gastritis: Yes Hx Ulcer: Yes - GENITOURINARY/GYNECOLOGICAL Hx Prostate Problems: Yes Hx Sexually Transmitted Disorders: Yes - PSYCHIATRIC Hx Depression: Yes Hx Substance Use: No - SURGICAL HISTORY Hx Coronary Artery Bypass Graft: Yes ((quadruple bypass) 2010) Hx Coronary Stent: Yes - ANESTHESIA Hx Anesthesia: Yes Hx Anesthesia Reactions: No Hx Malignant Hyperthermia: No Meds Allergies/Adverse Reactions: Allergies Allergy/AdvReac Type Severity Reaction Status Date / Time No Known Allergies Allergy Verified 09/18/17 17:03 - Medications Medications: Current Medications Acetaminophen (Tylenol 325mg Tab) 650 mg PO Q4 PRN PRN Reason: Pain, moderate (4-7) Al Hydrox/Mg Hydrox/Simethicone (Maalox Plus 30 Ml) 30 ml PO Q4 PRN PRN Reason: Dyspepsia Bismuth Subsalicylate (Pepto-Bismol) 524 mg PO Q4 PRN PRN Reason: Diarrhea Escitalopram Oxalate (Lexapro) 10 mg PO DAILY [facility] Folic Acid (Folic Acid) 1 mg PO DAILY [facility] Last Admin: 09/20/17 10:39 Dose: 1 mg Gabapentin (Neurontin) 100 mg PO TID [facility] Last Admin: 09/20/17 10:38 Dose: 100 mg Lorazepam (Ativan) 1 mg PO Q8 [facility] Last Admin: 09/20/17 10:38 Dose: 1 mg Lorazepam (Ativan) 2 mg IM Q8 PRN PRN Reason: Other Lorazepam (Ativan) 2 mg PO Q8 PRN PRN Reason: Other Magnesium Hydroxide (Milk Of Magnesia) 30 ml PO HS PRN PRN Reason: Constipation Multivitamins/Minerals (Therapeutic-M Tab) 1 tab PO DAILY [facility] Last Admin: 09/20/17 10:38 Dose: 1 tab Nicotine (Nicoderm Cq) 1 patch TD DAILY [facility] Thiamine HCl (Vitamin B1 Tab) 100 mg PO DAILY [facility] Last Admin: 09/20/17 10:38 Dose: 100 mg Topiramate (Topamax) 50 mg PO BID [facility] Trazodone HCl (Desyrel) 100 mg PO [facility] Results - Vital Signs Recent Vital Signs: Last Vital Signs Temp 97.5 F L 09/20/17 05:45 Pulse 70 09/20/17 05:45 Resp 19 09/20/17 05:45 BP 140/70 09/20/17 05:45 Pulse Ox 100 09/19/17 15:44 - Labs Result Diagrams: 09/20/17 05:40 09/20/17 05:40 Labs: Laboratory Results - last 24 hr 09/19/17 09/20/17 09/20/17 20:58 05:39 05:40 WBC 7.6 RBC 4.38 L Hgb 11.0 L Hct 34.9 L MCV 79.6 L MCH 25.1 L MCHC 31.5 L RDW 17.4 H Plt Count 198 Sodium Potassium Chloride Carbon Dioxide Anion Gap BUN Creatinine Est GFR ( Amer) Est GFR (Non-Af Amer) POC Glucose (mg/dL) 90 Random Glucose Calcium Ferritin Total Bilirubin AST ALT Alkaline Phosphatase Ammonia Total Protein Albumin Globulin Albumin/Globulin Ratio Triglycerides Cholesterol LDL Cholesterol Direct HDL Cholesterol Amylase Lipase Vitamin B12 Free T4 Thyroxine (T4) TSH 3rd Generation Urine Color Yellow Urine Clarity Slighty-cloudy Urine pH 6.0 Ur Specific [place] 1.025 Urine Protein 100 Urine Glucose (UA) Neg Urine Ketones Negative Urine Blood Negative Urine Nitrate Negative Urine Bilirubin Negative Urine Urobilinogen 0.2-1.0 Ur Leukocyte Esterase Neg Urine RBC (Auto) 3 Urine Microscopic WBC 1 Amorphous Sediment Rare H 09/20/17 09/20/17 09/20/17 05:40 05:40 05:40 WBC RBC Hgb Hct MCV MCH MCHC RDW Plt Count Sodium 140 Potassium 3.5 L Chloride 103 Carbon Dioxide 29 Anion Gap 12 BUN 12 Creatinine 0.9 Est GFR ( Amer) > 60 Est GFR (Non-Af Amer) > 60 POC Glucose (mg/dL) Random Glucose 102 Calcium 8.7 Ferritin 8.6 L Total Bilirubin 0.5 AST 24 ALT 34 Alkaline Phosphatase 58 Ammonia 34 D Total Protein 6.9 Albumin 3.3 L Globulin 3.6 Albumin/Globulin Ratio 0.9 L Triglycerides 117 D Cholesterol 160 LDL Cholesterol Direct 105 HDL Cholesterol 38 Amylase 68 Lipase 131 Vitamin B12 295 Free T4 0.93 Thyroxine (T4) 6.20 TSH 3rd Generation 2.30 Urine Color Urine Clarity Urine pH Ur Specific [place] Urine Protein Urine Glucose (UA) Urine Ketones Urine Blood Urine Nitrate Urine Bilirubin Urine Urobilinogen Ur Leukocyte Esterase Urine RBC (Auto) Urine Microscopic WBC Amorphous Sediment
[2017-09-20 13:12] LABS: FOLATE > 20.0 ng/mL
[2017-09-20] MEDS: Cilostazol 100 mg Tab UD PO SCH ×2 (13:22→23:43)
[2017-09-20] MEDS: Pantoprazole 40 mg EC Tab PO SCH (13:26)
--- NOTE | 2017-09-20 16:45 | CARD ---
APPROVED REPORT EKG Measurement Heart [id number] <Conclusion> Normal sinus rhythm Possible Left atrial enlargement Cannot rule out Anteroseptal infarct, age undetermined Abnormal ECG
[2017-09-21] MEDS: Multivitamin With Minerals Tab PO SCH (08:38)
[2017-09-21] MEDS: Pantoprazole 40 mg EC Tab PO SCH (08:38)
--- NOTE | 2017-09-21 11:09 | PCM.PYCHPN ---
Psychiatric Progress Note - Psychiatric Progress Note Patient seen today, length of contact: Patient evaluated, case discussed with team, chart reviewed Patient Chief Complaint: "I drank too much." Problems Identified/Issues Discussed: Patient discussed his alcohol abuse. Financial Advisor Trainee provided psychoeducation that alcohol can worsen mood and physical/mental health. Patient states that he continues to feel depressed, but denies ideation to harm self or others. He requested to be discharged on Wednesday because he has a mental health appointment that he would like to attend. He denies AH/VH/paranoia/delusions. Patient attributes many of his social issues and his impulsive behaviors to his chronic alcohol abuse. No current signs/symptoms of ETOH withdrawal. Diagnostic Results: ECG 09/20/17- Normal Sinus Rhythm, Possible left atrial enlargement Medication Change: No Medical Record Reviewed: Yes Consults ordered or reviewed: Medicine consult Mental Status Examination - Cognitive Function Orientation: Person, Place, Situation, Time Memory: Intact Attention: WNL Concentration: WNL Association: WNL Fund of Knowledge: [facility] Decription of patient's judgement and insights: Fair I/J; chronic poor judgment re: alcohol abuse - Mood Mood: Depressed - Affect Affect: Constricted, Depressed - Speech Speech: Appropriate - Formal Thought Process Formal Thought Process: No Impairment Psychotic Thoughts and Behaviors: NO AH/VH/paranoia/delusions - Suicidal Ideation Suicidal Ideation: No - Homicidal Ideation Homicidal Ideation: No Goal/Treatment Plan - Goal/Treatment Plan Need for Continued Stay: Remain at risks for inpatient hospitalization, Severe depression anxiety Progress Toward Problem(s) and Goals/Treatment Plan: Major Depressive Disorder; Alcohol Use Disorder, severe -Individual and group therapy -Ativan for ETOH w/drawal; will taper and monitor for signs of withdrawal -Thiamine, Folate -Continue Lexapro 10 mg PO Daily, Trazodone 100 mg PO HS, Topamax 50 mg PO BID -Medicine consult appreciated -Nicotine patch -Physical therapy screening -Disposition planning Estimated Date of D/C: 09/24/17 - Smoking Cessation Smoking Cessation Initiated: Yes
--- NOTE | 2017-09-21 11:50 | RAD ---
HISTORY: new admission COMPARISON: Chest radiographs 08/23/2017. TECHNIQUE: Chest PA and lateral FINDINGS: LUNGS: Sternotomy wires reiterated. Cardiomegaly is stable. No pulmonary vascular derangement is identified. Limited patchy opacity seen in the medial right in as well as gastric retrocardiac left base. Pattern may reflect limited increase atelectasis though an infiltrate is not excluded. Clinically correlate further. PLEURA: No significant pleural effusion identified. No pneumothorax apparent. CARDIOVASCULAR: Stable cardiomegaly. OSSEOUS STRUCTURES: No significant abnormalities. VISUALIZED UPPER ABDOMEN: Normal. OTHER FINDINGS: None. IMPRESSION: Stable cardiomegaly is appreciated. Linear atelectasis in the left base as well as limited patchy density at the medial right base. Continued clinical and radiographic monitoring are advised.
[2017-09-21] MEDS: Cilostazol 100 mg Tab UD PO SCH (13:26)
[2017-09-22] MEDS: Multivitamin With Minerals Tab PO SCH (08:08)
[2017-09-22] MEDS: Pantoprazole 40 mg EC Tab PO SCH (08:09)
--- NOTE | 2017-09-22 09:31 | PCM.PYCHPN ---
Psychiatric Progress Note - Psychiatric Progress Note Patient seen today, length of contact: Patient evaluated, case discussed with team, chart reviewed Patient Chief Complaint: "I'm okay." Problems Identified/Issues Discussed: Patient reports that he continues to feel depressed but that his mood is starting to improve. He denies current signs/symptoms of ETOH withdrawal. He denies current ideation to harm himself. Motivational interviewing and psychoeducation provided. We discussed coping strategies to deal with alcohol craving and how to make changes to his environment to increase changes of sobriety. No AH/VH/paranoia/delusions. Diagnostic Results: ECG 09/20/17- Normal Sinus Rhythm, Possible left atrial enlargement Medication Change: No Medical Record Reviewed: Yes Consults ordered or reviewed: Medicine consult Mental Status Examination - Cognitive Function Orientation: Person, Place, Situation, Time Memory: Intact Attention: WNL Concentration: WNL Association: WNL Fund of Knowledge: [facility] Decription of patient's judgement and insights: Fair I/J; chronic poor judgment re: alcohol abuse - Mood Mood: Depressed - Affect Affect: Constricted, Depressed - Speech Speech: Appropriate - Formal Thought Process Formal Thought Process: No Impairment Psychotic Thoughts and Behaviors: NO AH/VH/paranoia/delusions - Suicidal Ideation Suicidal Ideation: No - Homicidal Ideation Homicidal Ideation: No Goal/Treatment Plan - Goal/Treatment Plan Need for Continued Stay: Remain at risks for inpatient hospitalization, Severe depression anxiety Progress Toward Problem(s) and Goals/Treatment Plan: Major Depressive Disorder; Alcohol Use Disorder, severe -Individual and group therapy -Ativan for ETOH w/drawal; will taper and monitor for signs of withdrawal -Thiamine, Folate -Continue Lexapro 10 mg PO Daily, Trazodone 100 mg PO HS, Topamax 50 mg PO BID -Medicine consult appreciated -Nicotine patch -Physical therapy screening -Disposition planning Estimated Date of D/C: 09/24/17
[2017-09-22] MEDS: Cilostazol 100 mg Tab UD PO SCH ×2 (12:21→23:45)
[2017-09-23] MEDS: Pantoprazole 40 mg EC Tab PO SCH (08:37)
[2017-09-23] MEDS: Multivitamin With Minerals Tab PO SCH (08:37)
--- NOTE | 2017-09-23 10:33 | PCM.PYCHPN ---
Psychiatric Progress Note - Psychiatric Progress Note Patient seen today, length of contact: Patient evaluated, case discussed with team, chart reviewed Patient Chief Complaint: "I'm okay." Problems Identified/Issues Discussed: Patient reports that his mood is improving. NO psychosis/AH/VH/paranoia/ delusions/SI/HI. We discussed his struggles with alcohol cessation. Motivational interviewing and psychoeducation provided. We discussed coping strategies to deal with alcohol craving. No adverse effects to medications reported. Diagnostic Results: ECG 09/20/17- Normal Sinus Rhythm, Possible left atrial enlargement Medication Change: Yes (Taper Ativan) Medical Record Reviewed: Yes Consults ordered or reviewed: Medicine consult Mental Status Examination - Cognitive Function Orientation: Person, Place, Situation, Time Memory: Intact Attention: WNL Concentration: WNL Association: WNL Fund of Knowledge: [facility] Decription of patient's judgement and insights: Fair I/J; chronic poor judgment re: alcohol abuse - Mood Mood: Depressed - Affect Affect: Broad - Speech Speech: Appropriate - Formal Thought Process Formal Thought Process: No Impairment Psychotic Thoughts and Behaviors: NO AH/VH/paranoia/delusions - Suicidal Ideation Suicidal Ideation: No - Homicidal Ideation Homicidal Ideation: No Goal/Treatment Plan - Goal/Treatment Plan Need for Continued Stay: Severe depression anxiety Progress Toward Problem(s) and Goals/Treatment Plan: Major Depressive Disorder; Alcohol Use Disorder, severe -Individual and group therapy -Ativan for ETOH w/drawal; will taper and monitor for signs of withdrawal -Thiamine, Folate -Continue Lexapro 10 mg PO Daily, Trazodone 100 mg PO HS, Topamax 50 mg PO BID -Medicine consult appreciated -Nicotine patch -Disposition planning- discharge tomorrow w/ ICMS follow-up Estimated Date of D/C: 09/24/17 - Smoking Cessation Smoking Cessation Initiated: Yes
[2017-09-23] MEDS: Cilostazol 100 mg Tab UD PO SCH (12:59)
[2017-09-24] MEDS: Cilostazol 100 mg Tab UD PO SCH ×3 (00:34→12:54)
[2017-09-24 06:02] VITALS: RESP 18; TEMP 97.9
[2017-09-24] MEDS: Pantoprazole 40 mg EC Tab PO SCH (08:45)
[2017-09-24] MEDS: Multivitamin With Minerals Tab PO SCH (08:46)
[2017-09-24 08:51] VITALS: BP 106/70; PULSE 72
--- NOTE | 2017-09-24 09:28 | PCM.PYCHDC ---
Mental Status Examination - Mental Status Examination Orientation: Person, Place, Situation, Time Memory: Intact Mood: Neutral Affect: Broad Speech: Appropriate Attention: WNL Concentration: WNL Association: WNL Fund of Knowledge: WNL Formal Thought Process: No Impairment Description of patient's judgement and insight: Fair I/J Psychotic Thoughts and Behaviors: NO AH/VH/paranoia/delusions Suicidal Ideation: No Current Homicidal Ideation?: No Discharge Summary - Discharge Note Reason for Hospitalization: HPI: 61 yo male w/ h/o depression and ETOH use disorder, history of multiple past psychiatric admissions for depression and ETOH abuse, presented to [facility] w/ ETOH level of 286, reporting that he took a handful of Gabapentin in a suicide attempt. Social stressors include having a strained relationship w / his daughter. He reports depression, feelings of helplessness/hopelessness, low energy, low motivation. He denies current suicidal ideation/plan/intent and can contract for safety. NO AH/VH/paranoia. PPHx: Multiple past psychiatric admissions for depression and ETOH abuse. Recently discharged from [facility] on 09/10/17 (10 days ago) on: Escitalopram [Lexapro] 10 mg PO DAILY #30 tab; Gabapentin [Neurontin] 400 mg PO BID #60 cap; Topiramate [Topamax] 50 mg PO BID #60 tab; traZODone [Desyrel] 100 mg PO HS #30 tab PMHx: H/o seizure disorder, HTN, Asthma, COPD, HLD, PAD, PVD, CAD (s/p bypass), BPH, DM SHx: On disability, has 6 children (39yo, 29yo, 27yo, 27yo, 17yo, 16yo); Drinks 1 pint rum/day; smokes 1ppd ALL: NKDA Consultations:: List each consultation separately and include: 1. Reason for request. 2. Findings. 3. Follow-up Consultations: Medicine consult Summary of Hospital Course include:: 1. Description of specific treatment plan utilized for patients during their course of treatmen. 2. Summarize the time- course for resolution of acute symptoms and/or regressed behaviors. 3. Describe issues identified and worked on during hospitalization. 4. Describe medication utilized. 5. Describe medical problems identified and treated. 6. Reassessment of suicide risk Summary of Hospital Course: Patient admitted to the psychiatry unit. Individual and group therapy provided. Patient was stabilized on Lexapro, Trazodone and Gabapentin. Motivational interviewing and psychoeducation provided re: alcohol abuse. Patient denies current depression/anxiety/AH/VH/SI/HI. We discussed the importance of alcohol cessation. No current signs/symptoms of ETOH withdrawal. - Diagnosis (1) Major depressive disorder Current Visit: Yes Status: Chronic (2) Alcohol abuse Current Visit: No Status: Chronic - Final Diagnosis (DSM 5) Condition upon Discharge: STABLE DSM 5: Major Depressive Disorder; Alcohol Use Disorder, severe Disposition: HOME/ ROUTINE Follow-up Treatment Plan: Major Depressive Disorder; Alcohol Use Disorder, severe -Individual and group therapy -Stop Ativan, no current signs/symptoms of ETOH withdrawal -Thiamine, Folate -Continue Lexapro 10 mg PO Daily, Trazodone 100 mg PO HS, Topamax 50 mg PO BID -Medicine consult appreciated -Nicotine patch -Disposition planning- discharge w/ ICMS follow-up Prescriptions/Medication Reconciliation: Escitalopram [Lexapro] 10 mg PO DAILY #30 tab Gabapentin [Neurontin] 100 mg PO TID #90 cap Losartan [Cozaar] 50 mg PO DAILY #30 tab Tamsulosin HCl [Flomax] 0.4 mg PO HS #30 cap.er.24h traZODone [Desyrel] 100 mg PO HS #30 tab - Smoking Cessation Smoking Cessation Medication prescribed: Yes Reason for not providing: Patient given nicotine patch during admission, he declined a prescription - Antipsychotic Medications Pt discharged on 2 or more routine antipsychotic medications: No
== END 2017-09-24 14:20 | disposition home or self-care (01) | DRG 881 ==
LOC: H.ER 15:43 → H.PSYCH 15:50 → H.STEP 16:18
PROVIDERS: ADMIT Psychiatry & Neurology Psychiatry; ATTEND Psychiatry & Neurology Psychiatry
PROC: GZHZZZZ Group Psychotherapy (ICD-10-PCS; principal; 2017-09-19)
PROC: HZ57ZZZ Individual Psychotherapy for Substance Abuse Treatment, Motivational Enhancement (ICD-10-PCS; 2017-09-19)
PROC: HZ56ZZZ Individual Psychotherapy for Substance Abuse Treatment, Psychoeducation (ICD-10-PCS; 2017-09-19)
DX: F32.9 Major depressive disorder, single episode, unspecified (principal); E11.51 Type 2 diabetes mellitus with diabetic peripheral angiopathy without gangrene; J43.9 Emphysema, unspecified; G40.909 Epilepsy, unspecified, not intractable, without status epilepticus; Z72.89 Other problems related to lifestyle; I10 Essential (primary) hypertension; J45.909 Unspecified asthma, uncomplicated; E78.5 Hyperlipidemia, unspecified; I25.10 Atherosclerotic heart disease of native coronary artery without angina pectoris; Z95.1 Presence of aortocoronary bypass graft; Z95.5 Presence of coronary angioplasty implant and graft; N40.0 Benign prostatic hyperplasia without lower urinary tract symptoms; F17.210 Nicotine dependence, cigarettes, uncomplicated; K21.9 Gastro-esophageal reflux disease without esophagitis

== ENCOUNTER 2017-11-25 18:37 | Inpatient (IN) | payer MEDICARE, MEDICAID ==
[2017-11-25 18:37] VITALS: BMI 29.2
--- NOTE | 2017-11-25 20:50 | ED PDOC ---
HPI: Psych/Substance Abuse Time Seen by Provider: 11/25/17 18:58 Chief Complaint (Nursing): GI Problem Chief Complaint (Provider): Intoxication ED Caveat: Intoxicated History Per: EMS History/Exam Limitations: intoxication Onset/Duration Of Symptoms: Other (prior to arrival) Current Symptoms Are (Timing): Still Present Past Medical History Reviewed: Historical Data, Nursing Documentation, Vital Signs Vital Signs: Last Vital Signs Temp 98.3 F 11/25/17 18:38 Pulse 72 11/25/17 18:38 Resp 18 11/25/17 18:38 BP 116/67 11/25/17 18:38 Pulse Ox 98 11/25/17 18:38 - Medical History PMH: Anemia (iron deficiency), Anxiety, Arthritis, Asthma, Benign Prostatic Hyperplasia, Bipolar Disorder, Bronchitis, CAD, Cardia Arrhythmia, COPD, Depression, Diabetes, Diverticulitis, Emphysema, Gastritis, Hepatitis (PATIENT STATED HE HAS HEPATITIS BUT COULD NOT RECALL WHICH ONE), HTN, Hypercholesterolemia, Hyperlipidemia, Migraine, Pancreatitis, Pneumonia, Chronic Kidney Disease (States recent diagnosis), Seizures (ETOH related), Sexually Transmitted Disease, Sleep Apnea - Surgical History Surgical History: CABG ((quadruple bypass) 2010), Coronary Stent - Family History Family History: States: Unknown Family Hx - Immunization History Hx Tetanus Toxoid Vaccination: Yes Hx Influenza Vaccination: Yes Hx Pneumococcal Vaccination: Yes - Home Medications Home Medications: Ambulatory Orders Medication Instructions Recorded Topiramate [Topamax] 50 mg PO BID #60 tab 09/10/17 Pantoprazole Sodium [Protonix] 40 mg PO DAILY 09/19/17 Escitalopram [Lexapro] 10 mg PO DAILY #30 tab 09/23/17 Folic Acid 1 mg PO DAILY tab 09/23/17 Gabapentin [Neurontin] 100 mg PO TID #90 cap 09/23/17 Losartan [Cozaar] 50 mg PO DAILY #30 tab 09/23/17 Tamsulosin HCl [Flomax] 0.4 mg PO HS #30 cap.er.24h 09/23/17 Thiamine [Vitamin B1 Tab] 100 mg PO DAILY tab 09/23/17 Albuterol/Ipratropium [Duoneb 3 3 ml INH RQ6 neb 11/15/17 mg/0.5 mg (3 ml) UD] Aspirin [Ecotrin] 81 mg PO DAILY tabec 11/15/17 Calcium/Chloride/Magnesium 64 mg PO BID ect 11/15/17 [Slow-Mag] Metoprolol Succinate [Toprol XL] 25 mg PO DAILY tab 11/15/17 Multimineral/Multivitamin 1 tab PO DAILY tab 11/15/17 [Therapeutic-M Tab] - Allergies Allergies/Adverse Reactions: Allergies Allergy/AdvReac Type Severity Reaction Status Date / Time No Known Allergies Allergy Verified 11/25/17 18:38 Review of Systems ROS Statement: Except As Marked, All Systems Reviewed And Found Negative - Laboratory Results Result Diagrams: 11/25/17 21:30 11/25/17 21:30 - ECG O2 Sat by Pulse Oximetry: 98 (RA) Pulse Ox Interpretation: Normal Medical Decision Making Medical Decision Making: Time: 19:00 Initial Impression: Intoxication Initial Plan: --Alcohol serum --Reevaluation [id number] Patient notes that he is here for a detox program. Patient will be given a referral upon discharge. Upon re-evaluation, patient walks with a steady gait and is alert and oriented x13. Vitals stable. Scribe Attestation: Documented by Lousi Mooney, acting as a scribe for Heidi Schmidt MD. Provider Scribe Attestation: All medical record entries made by the Scribe were at my direction and personally dictated by me. I have reviewed the chart and agree that the record accurately reflects my personal performance of the history, physical exam, medical decision making, and the department course for this patient. I have also personally directed, reviewed, and agree with the discharge instructions and disposition. Disposition - Disposition Disposition: Routine/Home Disposition Time: 23:35 Condition: STABLE Forms: Blurb (Pashto)
[2017-11-25] MEDS ORDERED: Sodium Chloride 0.9% 1,000 ML IV STA (21:16)
[2017-11-25 21:47] LABS: BASO # 0.1 K/uL (0.0-0.2); BASO % 1.7 % (0.0-2.0); EOS # 0.2 K/uL (0.0-0.7); EOS % 3.7 % (0.0-4.0); LYMPH # 1.5 K/uL (1.0-4.3); MEAN CELL VOLUME 76.8 fl (80.0-94.0); MEAN CORPUSCULAR HGB CONC 31.3 g/dL (33.0-37.0); MEAN PLATELET VOLUME 7.7 fl (7.2-11.7); MONO # 0.5 K/uL (0.0-0.8); NEUT % 56.6 % (50.0-75.0); RBC 4.59 Mil/uL (4.40-5.90); RED CELL DISTRIBUTION WIDTH 23.8 % (11.5-14.5); WHITE BLOOD COUNT 5.3 K/uL (4.8-10.8)
[2017-11-25 22:16] LABS: ALBUMIN 3.8 g/dL (3.5-5.0); ALT/SGPT 41 U/L (21-72); AST/SGOT 38 U/L (17-59); BLOOD UREA NITROGEN 6 mg/dl (9-20); CALCIUM 8.7 mg/dL (8.4-10.2); GFR AFRICAN-AMERICAN > 60; GFR NON-AFRICAN AMERICAN > 60
--- NOTE | 2017-11-26 02:06 | ED PDOC ---
- Laboratory Results Result Diagrams: 11/25/17 21:30 11/25/17 21:30 - ECG O2 Sat by Pulse Oximetry: 98 Medical Decision Making Medical Decision Makin After discharge, patient verbalized suicidal intentions, reporting he would overdose on his home medication. Discharge order will be placed on hold. Crisis evaluation ordered. Patient placed on 1:1 OBS. 0200 Patient evaluated by crisis and deemed to need admission as per Dr. Mccauley ( [facility]PATIENT [facility]) Dx: depression Scribe Attestation: Documented by Nicky Rodgers acting as a scribe Matthew Ma MD. Scribe Attestation: All medical record entries made by the Scribe were at my direction and personally dictated by me. I have reviewed the chart and agree that the record accurately reflects my personal performance of the history, physical exam, medical decision making, and the department course for this patient. I have also personally directed, reviewed, and agree with the discharge instructions and disposition. Disposition - Clinical Impression Clinical Impression: Alcohol abuse with intoxication, Major depressive disorder - POA Present On Arrival: None - Disposition Disposition: Admitted as In-Patient ([facility]PATIENT [facility]) Disposition Time: 02:00 Condition: FAIR
[2017-11-26] MEDS ORDERED: Magnesium Hydroxide Susp 30 ml UD PO PRN (06:13)
[2017-11-26] MEDS ORDERED: Alum-Mag Hydrox-Simethicone Susp (30 mL) PO PRN (06:13)
[2017-11-26] MEDS ORDERED: Bismuth Subsalicylate 262 mg/15 ml Sus (240 ml) PO PRN (06:13)
--- NOTE | 2017-11-26 06:36 | PCM.BM ---
<Nathaniel Hodge - Last Filed: 11/26/17 06:34> Treatment Plan Problems - Problems identified on initial assessmt Hopelessness/Helplessness Date Initiated: 11/26/17 Time Initiated: 06:35 Assessment reference: NA Status: Active Feelings of Worthlessness Date Initiated: 11/26/17 Time Initiated: 06:35 Assessment reference: NA Status: Active Treatment assets and liabiliti Patient Assests: adapts well, cooperative, ADL independent, negotiates basic needs, cognitively intact Patient Liabilities: poor support system, relationship conflicts, substance abuse, medical problems - Milieu Protocol Maintain good personal hygiene: every shift Encourage regular showers, every shift Remind patient to perform daily oral care, every shift Assist patient to perform ADL's Maintain personal safety: daily Educate patient to report safety concerns to staff, daily Monitor environment for contraband/sharps Medication safety: Monitor for expected outcome, potential side effects: daily, Assess barriers to learning: daily, Assess readiness for medication education: daily <Yessi Day - Last Filed: 11/26/17 09:41> - Diagnosis (1) Alcohol abuse with alcohol-induced mood disorder Status: Acute Interventions: Medication management, Individual and group therapy, Psychoeducation, Motivational Interviewing 11/26/17 09:42 <Rose Mary Harrell - Last Filed: 11/26/17 14:20> Family Contact Family involvement: Famliy/SO not involved Family contact: Other (Pt reported being estranged from his family) - Outside Agency [facility] Care involvment: Information-sharing Agency contact name: Hunter returned case inspector Agency contact number: [phone] - Goals for Treatment Patient goals for treatment: "To get clean and stay clean" Discharge/Continuing Care - Education Needs Education Needs: Patient Medication, Patient Diagnosis/Disease Process, Patient Coping Skills, Patient Anger Management skills, Patient Placement options, Patient Community resources, Patient Nutrition, Patient Health Practices/Safety , Patient Personal Hygiene/Grooming, Patient Aftercare Safety Plan - Discharge Discharge Criteria: Tolerates medication w/o severe side effects, Free of Suicidal thoughts, Free of agitation, Normal sleep pattern, Ability to care for self, Reduction of target symptoms Discharge to:: Home - Additional Comments 11/26/17 14:15 Pt seen and discussed in team meeting. Reason for hospitalization reviewed; pt stated "I got stupid again. Some crazy shit went through my head." Pt's c/o was medical issues and upon discharge reported he was suicidal with plan to overdose. Pt stated "my plan all along was to get here." When asked where "here " was pt stated "here on this floor." Pt was recently discharged from [facility] on 11/15/2017. Pt reported non-compliance with treatment and prescribed medications. Pt identified his family as main triggers for EOH abuse and increased depression. Pt reported limited social and emotional support system. Pt reported he has 6 children and only 1 daughter (Candis) speaks to him. Pt reported that he does not trust his daughter. Pt's medications reviewed and discussed. Tx plan reviewed and discussed. Pt is agreeable. SW to continue to follow case. - Treatment Team Participation Discussed with Family/SO: No Was Patient/Family/SO present at Treatment Team Meeting: Yes
[2017-11-26] MEDS: Albuterol-Ipratrop 3 mg / 0.5 (3 ml) UD INH SCH ×3 (08:00→20:13)
[2017-11-26 08:59] LABS: T4 5.11 ug/dl (5.5-11.0)
[2017-11-26] MEDS: Pantoprazole 40 mg EC Tab PO SCH (08:59)
[2017-11-26] MEDS: Multivitamin With Minerals Tab PO SCH (09:00)
[2017-11-26] MEDS: Metoprolol Succinate 25 mg XL Tab PO SCH (09:00)
[2017-11-26 09:16] LABS: FERRITIN 57.7 ng/Ml (17.9-464)
[2017-11-26] MEDS ORDERED: Multivitamin With Minerals Tab PO SCH (09:30)
--- NOTE | 2017-11-26 09:42 | PCM.PSYCH ---
Initial Psychiatric Evaluation - Initial Psychiatric Evaluation Type of Admission: Voluntary Legal Status: Capacity Chief Complaint (in patient's own words): "I'm depressed." Patient's Reaction to Hospitalization: HPI: 62 y/o male who was brought into ED by EMS due to acute alcohol intoxication (BAL 316), presented with worsening depression in the context of alcohol abuse and non-compliance with medications. He drinks ETOH daily. In the ER he reproted suicidal ideation, but denies current ideation to harm himself or others. Social stressors include having a strained relationship w / his daughter. He reports depression, feelings of helplessness/hopelessness, low energy, low motivation. NO AH/VH/paranoia. PPHx: Multiple past psychiatric admissions for depression and ETOH abuse. Recently discharged from [facility] on 11/15/17. PMHx: H/o seizure disorder, HTN, Asthma, COPD, HLD, PAD, PVD, CAD (s/p bypass), BPH, DM SHx: On disability, has 6 children (39yo, 29yo, 27yo, 27yo, 17yo, 16yo); Drinks 1 pint rum/day; smokes 1ppd ALL: NKDA Current Medications: Active Medications Generic Name Dose Route Start Last Admin Trade Name Freq PRN Reason Stop Dose Admin Acetaminophen 650 mg 11/26/17 06:13 Tylenol 325mg Tab PO Q4 PRN Pain, moderate (4-7) Al Hydrox/Mg Hydrox/Simethicone 30 ml 11/26/17 06:13 Maalox Plus 30 Ml PO Q4 PRN Dyspepsia Albuterol/Ipratropium 3 ml 11/26/17 08:00 Duoneb 3 Mg/0.5 Mg (3 Ml) Ud INH RQ6 ORIANA Aspirin 81 mg 11/26/17 09:00 11/26/17 08:58 Ecotrin PO 81 mg DAILY ORIANA Administration Bismuth Subsalicylate 524 mg 11/26/17 06:13 Pepto-Bismol PO Q4 PRN Diarrhea Escitalopram Oxalate 10 mg 11/26/17 09:30 Lexapro PO DAILY ORIANA Folic Acid 1 mg 11/26/17 09:00 11/26/17 08:58 Folic Acid PO 1 mg DAILY ORIANA Administration Gabapentin 100 mg 11/26/17 09:00 11/26/17 08:58 Neurontin PO 100 mg TID ORIANA Administration Lorazepam 0.5 mg 11/26/17 06:13 Ativan PO 12/10/17 06:14 HS PRN Insomnia Lorazepam 0.5 mg 11/26/17 06:13 Ativan PO 12/10/17 06:14 Q6 PRN Anixety/Agitation Lorazepam 1 mg 11/26/17 09:00 11/26/17 08:54 Ativan PO 1 mg TID ORIANA Administration Losartan Potassium 50 mg 11/26/17 09:00 11/26/17 08:57 Cozaar PO 50 mg DAILY ORIANA Administration Magnesium Hydroxide 30 ml 11/26/17 06:13 Milk Of Magnesia PO HS PRN Constipation Metoprolol Succinate 25 mg 11/26/17 09:00 11/26/17 09:00 Toprol Xl PO 25 mg DAILY ORIANA Administration Multivitamins/Minerals 1 tab 11/26/17 09:00 11/26/17 09:00 Therapeutic-M Tab PO 1 tab DAILY ORIANA Administration Multivitamins/Minerals 1 tab 11/26/17 09:30 Therapeutic-M Tab PO DAILY [facility] Pantoprazole Sodium 40 mg 11/26/17 09:00 11/26/17 08:59 Protonix Ec Tab PO 40 mg DAILY [facility] Administration Tamsulosin HCl 0.4 mg 11/26/17 22:00 Flomax PO [facility] Thiamine HCl 100 mg 11/26/17 09:00 11/26/17 09:01 Vitamin B1 Tab PO 100 mg DAILY [facility] Administration Topiramate 50 mg 11/26/17 09:30 Topamax PO BID [facility] Past Psychiatric History - Past Psychiatric History Previous Treatment History: Inpatient Pertinent Medical Hx (Current Medical&Sleep Prob, Allergies): Allergies Allergy/AdvReac Type Severity Reaction Status Date / Time No Known Allergies Allergy Verified 11/25/17 18:38 Topiramate [Topamax] 50 mg PO BID #60 tab 09/10/17 Pantoprazole Sodium [Protonix] 40 mg PO DAILY 09/19/17 Escitalopram [Lexapro] 10 mg PO DAILY #30 tab 09/23/17 Folic Acid 1 mg PO DAILY tab 09/23/17 Gabapentin [Neurontin] 100 mg PO TID #90 cap 09/23/17 Losartan [Cozaar] 50 mg PO DAILY #30 tab 09/23/17 Tamsulosin HCl [Flomax] 0.4 mg PO HS #30 cap.er.24h 09/23/17 Thiamine [Vitamin B1 Tab] 100 mg PO DAILY tab 09/23/17 Albuterol/Ipratropium [Duoneb 3 mg/0.5 mg (3 ml) UD] 3 ml INH RQ6 neb 11/15/17 Aspirin [Ecotrin] 81 mg PO DAILY tabec 11/15/17 Calcium/Chloride/Magnesium [Slow-Mag] 64 mg PO BID ect 11/15/17 Metoprolol Succinate [Toprol XL] 25 mg PO DAILY tab 11/15/17 Multimineral/Multivitamin [Therapeutic-M Tab] 1 tab PO DAILY tab 11/15/17 Review of Systems - Psychiatric Psychiatric: As Per HPI, Abnormal Sleep Pattern, Anhedonia, Anxiety, Change in Appetite, Depression, Difficulty Concentrating, Suicidal Ideation Mental Status Examination - Personal Presentation Personal Presentation: Looks stated age - Affect Affect: Constricted - Motor Activity Motor Activity: Calm - Reliability in Providing Information Reliability in Providing Information: Fair - Speech Speech: Organized - Mood Mood: Depressed - Formal Thought Process Formal Thought Process: No Impairment - Hallucinations/Delusions Additional comments: No AH/VH/paranoia/delusions - Obsessions/Compulsions Obsessions: No Compulsions: No - Cognitive Functions Orientation: Person, Place, Situation, Time Sensorium: Alert Attention/Concentration: Attentive Estimate of Intelligence: Average Judgement: Intact, as evidence by: Insight regarding need for hospitalization Memory: Recent intact, as evidence by: Ability to recall events of the day, Remote intact, as evidenced by: Abilit to recall sig. life events, Remote intact , as evidenced by: Ability to recall historical events - Risk Risk: Suicidal, Diminished functioning - Strength & Assets Inventory Strength & Assets Inventory: Cooperative - Limitations Limitations: Living alone DSM 5 DX - DSM 5 DSM 5 Diagnosis: Alcohol Induced Mood Disorder; Alcohol Use Disorder, Severe - Recommended/Plan of Treatment Treatment Recommendations and Plan of Treatment: Alcohol Induced Mood Disorder; Alcohol Use Disorder, Severe -Admit to psychiatry unit -No 1:1 indicated at this time as the patient can contract for safety -Individual and group therapy -Ativan for ETOH w/drawal -Thiamine, Folate -Restart Lexapro 10 mg PO Daily -Medicine consult -Nicotine patch -Obtain collateral history -Physical therapy screening -Disposition planning Projected ELOS: 5-7 days Discharge Plan and Discharge Criteria: Discharge patient when he is psychiatrically stable - Smoking Cessation Smoking Cessation Initiated: Yes
--- NOTE | 2017-11-26 09:55 | CARD ---
APPROVED REPORT EKG Measurement Heart [id number] <Conclusion> Normal sinus rhythm Possible Left atrial enlargement Nonspecific ST and T wave abnormality Prolonged QT Abnormal ECG
[2017-11-26] MEDS ORDERED: Influenza Vaccine(65YR UP)/PF 180 MCG/0.5 ML SYRINGE IM ONE (09:59)
--- NOTE | 2017-11-26 10:06 | RAD ---
PROCEDURE: CHEST RADIOGRAPH, 1 VIEW HISTORY: admit COMPARISON: Portable chest 09/21/2017 FINDINGS: LUNGS: Borderline patchy density rope right base medially. Remaining lung bean are clear including left base. PLEURA: No pneumothorax or pleural fluid seen. CARDIOVASCULAR: Stable prominent cardiac silhouette though technical magnification may be an effect distorting cardiac size. No pulmonary vascular derangement identified. Sternotomy wires again noted. OSSEOUS STRUCTURES: No significant abnormalities. VISUALIZED UPPER ABDOMEN: Normal. OTHER FINDINGS: None. IMPRESSION: Borderline patchy airspace disease right base medially. Interval clearing of limited patchy density left base. Stable cardiomediastinal silhouette.
[2017-11-26 17:41] LABS: FOLATE 8.7 ng/mL
[2017-11-26 19:25] LABS: URINE BILIRUBIN NEGATIVE (NEGATIVE); URINE BLOOD NEGATIVE (NEGATIVE); URINE CLARITY CLEAR (Clear); URINE COLOR YELLOW (YELLOW); URINE GLUCOSE (UA) NEG (Normal); URINE LEUKOCYTE ESTERASE NEG Leu/uL (Negative); URINE PROTEIN NEGATIVE (NEGATIVE); URINE UROBILINOGEN 0.2-1.0 mg/dL (0.2-1.0)
[2017-11-27] MEDS: Albuterol-Ipratrop 3 mg / 0.5 (3 ml) UD INH SCH ×5 (01:05→23:46)
[2017-11-27] MEDS: Pantoprazole 40 mg EC Tab PO SCH (08:44)
[2017-11-27] MEDS: Multivitamin With Minerals Tab PO SCH (08:44)
[2017-11-27] MEDS: Metoprolol Succinate 25 mg XL Tab PO SCH (08:45)
--- NOTE | 2017-11-27 13:45 | PCM.PYCHPN ---
Psychiatric Progress Note - Psychiatric Progress Note Patient seen today, length of contact: chart reviewed case discussed with team Patient Chief Complaint: feeling depressed drinking daily no current complaints of w/e-on w/d protocol. estranged from family. multiple admissions to both [facility] and [facility]. restarted on lexapro 10mg yesterday no complaints of s/e. Problems Identified/Issues Discussed: alteration in mood alteration in coping substance use etoh active potential for w/d family circumstances Medical Problems: per chart hx of copd previous use supplemental o2 at hs at 2l w/o reported effects breathing Diagnostic Results: per psychiatry per medicine per nursing per social worker assistant DSM 5 Symptoms Update: alteration in mood alteration in coping potential substance induced mood disorder Medication Change: No Medical Record Reviewed: Yes Consults ordered or reviewed: hospitalist recreational therapy Mental Status Examination - Cognitive Function Orientation: Person, Place, Situation, Time Attention: WNL Concentration: WNL Association: WNL Fund of Knowledge: WN Decription of patient's judgement and insights: impaired - Mood Mood: Depressed - Affect Affect: Constricted - Speech Speech: Soft - Formal Thought Process Formal Thought Process: No Impairment - Homicidal Ideation Homicidal Ideation: No Goal/Treatment Plan - Goal/Treatment Plan Need for Continued Stay: Remain at risks for inpatient hospitalization, Failed transitioning Progress Toward Problem(s) and Goals/Treatment Plan: inpt adm/milieu vital signs and clinical observation per protocol and per clinical status pt receiving prn /lorazepam w/d protocol pt receiving rispiratory therapy discharge planning ?ltc ?vivitrol falls precautions Estimated Date of D/C: 12/02/17 - Smoking Cessation Smoking Cessation Initiated: Yes
--- NOTE | 2017-11-27 22:57 | CP.PCM.CON ---
History of Present Illness - History of Present Illness History of Present Illness: Reason for Consult: Multiple Medical Problems History of Present Illness: A 62yoM with H/O CAD S/P CABG, HTN, Dyslipidemia, BPH, ETOH withdrawal seizure and Chronic ETOH use was admitted for ETOH Intoxicated and Major depression with Psychotic Behaviour. Denies Chest pain,sob or palpitation. Review of Systems - Review of Systems Systems not reviewed;Unavailable: Intoxicated All systems: reviewed and no additional remarkable complaints except Past Patient History - Infectious Disease Hx of Infectious Diseases: None - Past Medical History & Family History Past Medical History?: Yes Past Family History: Reviewed and not pertinent - Past Social History Smoking Status: Heavy Smoker > 10 Cigarettes Daily Alcohol: > 2 Drinks/Day Drugs: Denies - CARDIAC Hx Cardiac Disorders: Yes Hx Heart Attack: Yes Hx Hypercholesterolemia: Yes Hx Hypertension: Yes - PULMONARY Hx Respiratory Disorders: Yes Hx Asthma: Yes Hx Bronchitis: Yes Hx Chronic Obstructive Pulmonary Disease (COPD): Yes Hx Emphysema: Yes Hx Lung Cancer: No Hx Pneumonia: Yes Hx Pulmonary Embolism: No Hx Respiratory Tract Infection: Yes Hx Sleep Apnea: Yes Hx Tuberculosis: No - NEUROLOGICAL Hx Neurological Disorder: No HX Cerebrovascular Accident: No Hx Seizures: Yes (ETOH related) - HEENT Hx HEENT Problems: No - RENAL Hx Chronic Kidney Disease: No (States recent diagnosis) - ENDOCRINE/METABOLIC Hx Endocrine Disorders: Yes Hx Adrenal Cancer: No Hx Diabetes Mellitus Type 2: Yes Hx Hyperthyroidism: No Hx Hypothyroidism: No Hx Systemic Lupus Erythematosus: No - HEMATOLOGICAL/ONCOLOGICAL Hx Blood Disorders: Yes Hx AIDS: No Hx Anemia: No Hx Blood Transfusions: Yes Hx Blood Transfusion Reaction: No Hx Bruising: No Hx Cancer: No Hx Chemotherapy: No Hx Hepatitis A: Yes Hx Human Immunodeficiency Virus (HIV): No Hx Leukemia: No Hx Shingles: No Hx Sickle Cell Disease: No Hx Unexplained Bleeding: No Hx von Willebrand's Disease: No - INTEGUMENTARY Hx Dermatological Problems: No - MUSCULOSKELETAL/RHEUMATOLOGICAL Hx Arthritis: Yes Hx Falls: Yes Hx Fractures: No Hx Herniated Disk: Yes Hx Myasthenia Gravis: No - GASTROINTESTINAL Hx Gastrointestinal Disorders: Yes Hx Diarrhea: Yes Hx Diverticulitis: No Hx Gastritis: Yes Hx Pancreatitis: Yes HX Swallowing Problems: No Hx Ulcer: Yes Hx Vomiting: Yes - GENITOURINARY/GYNECOLOGICAL Hx Prostate Problems: Yes Hx Sexually Transmitted Disorders: No Hx Urinary Tract Infection: No - PSYCHIATRIC Hx Anxiety: Yes Hx Depression: Yes Hx Emotional Abuse: Yes Hx Physical Abuse: No Hx Sexual Abuse: No Hx Substance Use: No - SURGICAL HISTORY Hx Surgeries: Yes Hx Coronary Artery Bypass Graft: Yes ((quadruple bypass) 2010) Hx Coronary Stent: Yes Hx Open Heart Surgery: Yes - ANESTHESIA Hx Anesthesia: Yes Hx Anesthesia Reactions: No Hx Malignant Hyperthermia: No Meds Allergies/Adverse Reactions: Allergies Allergy/AdvReac Type Severity Reaction Status Date / Time No Known Allergies Allergy Verified 11/25/17 18:38 - Medications Medications: Current Medications Acetaminophen (Tylenol 325mg Tab) 650 mg PO Q4 PRN PRN Reason: Pain, moderate (4-7) Al Hydrox/Mg Hydrox/Simethicone (Maalox Plus 30 Ml) 30 ml PO Q4 PRN PRN Reason: Dyspepsia Albuterol/Ipratropium (Duoneb 3 Mg/0.5 Mg (3 Ml) Ud) 3 ml INH RQ6 [facility] Last Admin: 11/27/17 22:49 Dose: Not Given Aspirin (Ecotrin) 81 mg PO DAILY [facility] Last Admin: 11/27/17 08:44 Dose: 81 mg Bismuth Subsalicylate (Pepto-Bismol) 524 mg PO Q4 PRN PRN Reason: Diarrhea Escitalopram Oxalate (Lexapro) 10 mg PO DAILY [facility] Last Admin: 11/27/17 08:44 Dose: 10 mg Folic Acid (Folic Acid) 1 mg PO DAILY [facility] Last Admin: 11/27/17 08:44 Dose: 1 mg Gabapentin (Neurontin) 100 mg PO TID [facility] Last Admin: 11/27/17 16:55 Dose: 100 mg Lorazepam (Ativan) 0.5 mg PO HS PRN PRN Reason: Insomnia Stop: 12/10/17 06:14 Lorazepam (Ativan) 0.5 mg PO Q6 PRN PRN Reason: Anixety/Agitation Stop: 12/10/17 06:14 Lorazepam (Ativan) 1 mg PO TID [facility] Last Admin: 11/27/17 16:54 Dose: 1 mg Losartan Potassium (Cozaar) 50 mg PO DAILY [facility] Last Admin: 11/27/17 08:45 Dose: 50 mg Magnesium Hydroxide (Milk Of Magnesia) 30 ml PO HS PRN PRN Reason: Constipation Metoprolol Succinate (Toprol Xl) 25 mg PO DAILY [facility] Last Admin: 11/27/17 08:45 Dose: 25 mg Multivitamins/Minerals (Therapeutic-M Tab) 1 tab PO DAILY [facility] Last Admin: 11/27/17 08:44 Dose: 1 tab Nicotine (Nicoderm Cq) 1 patch TD DAILY [facility] Last Admin: 11/27/17 08:49 Dose: 1 patch Pantoprazole Sodium (Protonix Ec Tab) 40 mg PO DAILY [facility] Last Admin: 11/27/17 08:44 Dose: 40 mg Tamsulosin HCl (Flomax) 0.4 mg PO HS [facility] Last Admin: 11/27/17 21:08 Dose: 0.4 mg Thiamine HCl (Vitamin B1 Tab) 100 mg PO DAILY [facility] Last Admin: 11/27/17 08:45 Dose: 100 mg Topiramate (Topamax) 50 mg PO BID [facility] Last Admin: 11/27/17 16:55 Dose: 50 mg Physical Exam - Constitutional Appears: Well, No Acute Distress - Head Exam Head Exam: ATRAUMATIC, NORMAL INSPECTION, NORMOCEPHALIC - Eye Exam Eye Exam: EOMI, Normal appearance, PERRL Pupil Exam: NORMAL ACCOMODATION, PERRL - ENT Exam ENT Exam: Mucous Membranes Moist, Normal Exam - Neck Exam Neck exam: Positive for: Normal Inspection - Respiratory Exam Respiratory Exam: Clear to Auscultation Bilateral, NORMAL BREATHING PATTERN. absent: Rales - Cardiovascular Exam Cardiovascular Exam: REGULAR RHYTHM, +S1, +S2 - GI/Abdominal Exam GI & Abdominal Exam: Normal Bowel Sounds, Soft. absent: Tenderness - Exam Speculum exam: NORMAL SPECULUM EXAM - Extremities Exam Extremities exam: Positive for: normal capillary refill, normal inspection - Back Exam Back exam: NORMAL INSPECTION. absent: CVA tenderness (L), CVA tenderness (R) - Neurological Exam Neurological exam: Alert, CN II-XII Intact, Normal Gait, Oriented x3, Reflexes Normal - Psychiatric Exam Psychiatric exam: Depressed, Flat Affect - Skin Skin Exam: Dry, Intact, Normal Color, Warm Results - Vital Signs Recent Vital Signs: Last Vital Signs Temp 99.1 F 11/27/17 15:51 Pulse 72 11/27/17 15:51 Resp 19 11/27/17 15:51 BP 111/75 11/27/17 15:51 Pulse Ox 98 11/26/17 21:05 - Labs Result Diagrams: 11/25/17 21:30 11/25/17 21:30 Labs: Laboratory Results - last 24 hr 11/27/17 05:10 RPR Nonreactive - EKG Data EKG Interpreted by: Myself EKG shows normal: [place], QRS complexes, ST-T waves Rate: Normal - Imaging and Cardiology Chest x-ray Status: Report reviewed by me Additional comment: IMPRESSION: Borderline patchy airspace disease right base medially. Interval clearing of limited patchy density left base. Stable cardiomediastinal silhouette. Assessment & Plan (1) Alcohol abuse with intoxication Assessment and Plan: Librium PRN Thiamine/Folic Acid MVI PO Hydration Ativan PRN Status: Acute Priority: Medium (2) Major depressive disorder Assessment and Plan: RX as per Psychiatrist Status: Acute Priority: Medium (3) CAD (coronary artery disease) Status: Chronic (4) COPD (chronic obstructive pulmonary disease) Status: Chronic (5) Diabetes Status: Chronic (6) Hypertension Status: Chronic Priority: Low - Assessment and Plan (Free Text) Plan: Continue Current Care
[2017-11-28] MEDS: Albuterol-Ipratrop 3 mg / 0.5 (3 ml) UD INH SCH ×4 (01:00→19:55)
[2017-11-28 06:27] VITALS: O2SAT 97
[2017-11-28] MEDS: Pantoprazole 40 mg EC Tab PO SCH (09:18)
[2017-11-28] MEDS: Multivitamin With Minerals Tab PO SCH (09:18)
[2017-11-28] MEDS: Metoprolol Succinate 25 mg XL Tab PO SCH (09:18)
--- NOTE | 2017-11-28 10:42 | CP.PCM.PN ---
Subjective - Date & Time of Evaluation Date of Evaluation: 11/28/17 Time of Evaluation: 09:50 - Subjective Subjective: No New Complaint. Objective - Vital Signs/Intake and Output Vital Signs (last 24 hours): Temp Pulse Resp BP Pulse Ox 97.7 F 67 19 124/67 97 11/28/17 06:00 11/28/17 09:18 11/28/17 06:00 11/28/17 09:18 11/28/17 06:00 - Medications Medications: Current Medications Acetaminophen (Tylenol 325mg Tab) 650 mg PO Q4 PRN PRN Reason: Pain, moderate (4-7) Al Hydrox/Mg Hydrox/Simethicone (Maalox Plus 30 Ml) 30 ml PO Q4 PRN PRN Reason: Dyspepsia Albuterol/Ipratropium (Duoneb 3 Mg/0.5 Mg (3 Ml) Ud) 3 ml INH RQ6 [facility] Last Admin: 11/28/17 07:15 Dose: 3 ml Aspirin (Ecotrin) 81 mg PO DAILY [facility] Last Admin: 11/28/17 09:15 Dose: 81 mg Bismuth Subsalicylate (Pepto-Bismol) 524 mg PO Q4 PRN PRN Reason: Diarrhea Escitalopram Oxalate (Lexapro) 10 mg PO DAILY [facility] Last Admin: 11/28/17 09:16 Dose: 10 mg Folic Acid (Folic Acid) 1 mg PO DAILY [facility] Last Admin: 11/28/17 09:16 Dose: 1 mg Gabapentin (Neurontin) 100 mg PO TID [facility] Last Admin: 11/28/17 09:17 Dose: 100 mg Lorazepam (Ativan) 0.5 mg PO HS PRN PRN Reason: Insomnia Stop: 12/10/17 06:14 Lorazepam (Ativan) 0.5 mg PO Q6 PRN PRN Reason: Anixety/Agitation Stop: 12/10/17 06:14 Lorazepam (Ativan) 1 mg PO TID [facility] Last Admin: 11/28/17 09:14 Dose: 1 mg Losartan Potassium (Cozaar) 50 mg PO DAILY [facility] Last Admin: 11/28/17 09:14 Dose: 50 mg Magnesium Hydroxide (Milk Of Magnesia) 30 ml PO HS PRN PRN Reason: Constipation Metoprolol Succinate (Toprol Xl) 25 mg PO DAILY [facility] Last Admin: 11/28/17 09:18 Dose: 25 mg Multivitamins/Minerals (Therapeutic-M Tab) 1 tab PO DAILY [facility] Last Admin: 11/28/17 09:18 Dose: 1 tab Nicotine (Nicoderm Cq) 1 patch TD DAILY [facility] Last Admin: 11/28/17 09:17 Dose: 1 patch Pantoprazole Sodium (Protonix Ec Tab) 40 mg PO DAILY [facility] Last Admin: 11/28/17 09:18 Dose: 40 mg Tamsulosin HCl (Flomax) 0.4 mg PO HS [facility] Last Admin: 11/27/17 21:08 Dose: 0.4 mg Thiamine HCl (Vitamin B1 Tab) 100 mg PO DAILY [facility] Last Admin: 11/28/17 09:19 Dose: 100 mg Topiramate (Topamax) 50 mg PO BID [facility] Last Admin: 11/28/17 09:18 Dose: 50 mg - Labs Labs: 11/25/17 21:30 11/25/17 21:30 Assessment and Plan (1) Alcohol abuse with intoxication Assessment & Plan: Librium PRN Thiamine/Folic Acid MVI PO Hydration Ativan PRN Status: Acute Priority: Medium (2) Major depressive disorder Assessment and Plan: RX as per Psychiatrist Status: Acute Priority: Medium (3) CAD (coronary artery disease) Status: Chronic (4) COPD (chronic obstructive pulmonary disease) Status: Chronic (5) Diabetes Status: Chronic (6) Hypertension Status: Chronic Priority: Low Status: Acute
[2017-11-29] MEDS: Albuterol-Ipratrop 3 mg / 0.5 (3 ml) UD INH SCH ×3 (02:32→13:12)
[2017-11-29] MEDS: Multivitamin With Minerals Tab PO SCH (08:49)
[2017-11-29] MEDS: Metoprolol Succinate 25 mg XL Tab PO SCH (08:52)
[2017-11-29] MEDS: Pantoprazole 40 mg EC Tab PO SCH (08:52)
--- NOTE | 2017-11-29 09:43 | PCM.PYCHPN ---
Psychiatric Progress Note - Psychiatric Progress Note Patient seen today, length of contact: Patient evaluated, case discussed with team, chart reviewed Patient Chief Complaint: "I'm depressed." Problems Identified/Issues Discussed: Patient continues to report that he feels depressed. He continues to be upset about his social stressors, including discord with his family. He denies current AH/VH/SI/HI. He denies current signs/symptoms of ETOH w/drawal. We discussed continued tapering of Ativan. Medication Change: Yes (Taper Ativan) Medical Record Reviewed: Yes Consults ordered or reviewed: Medicine consult Mental Status Examination - Cognitive Function Orientation: Person, Place, Situation, Time Memory: Intact Attention: WNL Concentration: WNL Association: [facility] Fund of Knowledge: [facility] Decription of patient's judgement and insights: Chronic poor I/J re: Alcohol Abuse; otherwise fair I/J - Mood Mood: Depressed - Affect Affect: Constricted - Speech Speech: Soft - Formal Thought Process Formal Thought Process: No Impairment Psychotic Thoughts and Behaviors: Denies AH/VH/paranoia/delusions - Suicidal Ideation Suicidal Ideation: No - Homicidal Ideation Homicidal Ideation: No Goal/Treatment Plan - Goal/Treatment Plan Need for Continued Stay: Remain at risks for inpatient hospitalization, Severe depression anxiety, Discharge may exacerbated symptoms Progress Toward Problem(s) and Goals/Treatment Plan: Alcohol Induced Mood Disorder; Alcohol Use Disorder, Severe -Individual and group therapy -Taper Ativan for ETOH w/drawal -Thiamine, Folate -Continue Lexapro 10 mg PO Daily -Medicine consult -Nicotine patch -Disposition planning Estimated Date of D/C: 12/01/17 - Smoking Cessation Smoking Cessation Initiated: Yes
--- NOTE | 2017-11-29 18:28 | CP.PCM.PN ---
Subjective - Date & Time of Evaluation Date of Evaluation: 11/29/17 Time of Evaluation: 11:00 - Subjective Subjective: Seen and examined at the bed side. Epistaxis from the right nostril of fresh blood of small amount. Patient attributes to dryness due to oxygen. As per the psychiatrist, no acute psychiatrist Issues , and Advance Discharge planning. Objective - Vital Signs/Intake and Output Vital Signs (last 24 hours): Temp Pulse Resp BP Pulse Ox 98.1 F 65 19 106/60 97 11/29/17 16:05 11/29/17 16:05 11/29/17 16:05 11/29/17 16:05 11/29/17 05:54 - Medications Medications: Current Medications Acetaminophen (Tylenol 325mg Tab) 650 mg PO Q4 PRN PRN Reason: Pain, moderate (4-7) Al Hydrox/Mg Hydrox/Simethicone (Maalox Plus 30 Ml) 30 ml PO Q4 PRN PRN Reason: Dyspepsia Albuterol/Ipratropium (Duoneb 3 Mg/0.5 Mg (3 Ml) Ud) 3 ml INH RQ6 [facility] Last Admin: 11/29/17 13:12 Dose: 3 ml Aspirin (Ecotrin) 81 mg PO DAILY [facility] Last Admin: 11/29/17 08:51 Dose: 81 mg Bismuth Subsalicylate (Pepto-Bismol) 524 mg PO Q4 PRN PRN Reason: Diarrhea Escitalopram Oxalate (Lexapro) 10 mg PO DAILY [facility] Last Admin: 11/29/17 08:51 Dose: 10 mg Folic Acid (Folic Acid) 1 mg PO DAILY [facility] Last Admin: 11/29/17 08:51 Dose: 1 mg Gabapentin (Neurontin) 100 mg PO TID [facility] Last Admin: 11/29/17 17:10 Dose: 100 mg Lorazepam (Ativan) 0.5 mg PO HS PRN PRN Reason: Insomnia Stop: 12/10/17 06:14 Lorazepam (Ativan) 0.5 mg PO Q6 PRN PRN Reason: Anixety/Agitation Stop: 12/10/17 06:14 Last Admin: 11/28/17 22:45 Dose: 0.5 mg Lorazepam (Ativan) 0.5 mg PO BID [facility] Last Admin: 11/29/17 17:12 Dose: 0.5 mg Losartan Potassium (Cozaar) 50 mg PO DAILY [facility] Last Admin: 11/29/17 08:50 Dose: Not Given Magnesium Hydroxide (Milk Of Magnesia) 30 ml PO HS PRN PRN Reason: Constipation Metoprolol Succinate (Toprol Xl) 25 mg PO DAILY [facility] Last Admin: 11/29/17 08:52 Dose: Not Given Multivitamins/Minerals (Therapeutic-M Tab) 1 tab PO DAILY [facility] Last Admin: 11/29/17 08:49 Dose: 1 tab Nicotine (Nicoderm Cq) 1 patch TD DAILY [facility] Last Admin: 11/29/17 08:53 Dose: 1 patch Pantoprazole Sodium (Protonix Ec Tab) 40 mg PO DAILY [facility] Last Admin: 11/29/17 08:52 Dose: 40 mg Tamsulosin HCl (Flomax) 0.4 mg PO HS [facility] Last Admin: 11/28/17 21:07 Dose: 0.4 mg Thiamine HCl (Vitamin B1 Tab) 100 mg PO DAILY [facility] Last Admin: 11/29/17 08:52 Dose: 100 mg Topiramate (Topamax) 50 mg PO BID [facility] Last Admin: 11/29/17 08:49 Dose: 50 mg - Labs Labs: 11/25/17 21:30 11/25/17 21:30 - Constitutional Appears: Well, No Acute Distress - Head Exam Head Exam: ATRAUMATIC, NORMAL INSPECTION, NORMOCEPHALIC - Eye Exam Eye Exam: EOMI, Normal appearance, PERRL Pupil Exam: NORMAL ACCOMODATION, PERRL - ENT Exam ENT Exam: Mucous Membranes Moist, Normal Exam - Neck Exam Neck Exam: Full ROM, Normal Inspection. absent: Lymphadenopathy - Respiratory Exam Respiratory Exam: Clear to Ausculation Bilateral, NORMAL BREATHING PATTERN - Cardiovascular Exam Cardiovascular Exam: REGULAR RHYTHM, +S1, +S2. absent: Murmur - GI/Abdominal Exam GI & Abdominal Exam: Soft, Normal Bowel Sounds. absent: Tenderness - Extremities Exam Extremities Exam: Full ROM, Normal Capillary Refill, Normal Inspection. absent : Joint Swelling, Pedal Edema - Back Exam Back Exam: NORMAL INSPECTION - Neurological Exam Neurological Exam: Alert, Awake, CN II-XII Intact, Normal Gait, Oriented x3 - Psychiatric Exam Psychiatric exam: Normal Affect, Normal Mood - Skin Skin Exam: Dry, Intact, Normal Color, Warm Assessment and Plan (1) Alcohol abuse with intoxication Assessment & Plan: Resolved Thiamine/Folic Acid MVI PO Hydration Ativan PRN Status: Acute Priority: Medium (2) Major depressive disorder Assessment and Plan: RX as per Psychiatrist Status: Acute Priority: Medium (3) CAD (coronary artery disease) Status: Chronic (4) COPD (chronic obstructive pulmonary disease) O2 Via [place] Status: Chronic (5) Diabetes Status: Chronic (6) Hypertension Status: Chronic Priority: Low Status: Acute
[2017-11-30 06:48] LABS: BASO # 0.1 K/uL (0.0-0.2); BASO % 1.7 % (0.0-2.0); EOS # 0.3 K/uL (0.0-0.7); EOS % 3.5 % (0.0-4.0); HEMOGLOBIN 11.6 g/dL (12.0-18.0); LYMPH # 1.7 K/uL (1.0-4.3); LYMPH % 22.3 % (20.0-40.0); MEAN CELL VOLUME 78.6 fl (80.0-94.0); MEAN CORPUSCULAR HGB CONC 30.5 g/dL (33.0-37.0); MEAN PLATELET VOLUME 8.3 fl (7.2-11.7); MONO # 1.3 K/uL (0.0-0.8); MONO % 16.8 % (0.0-10.0); NEUT # 4.3 K/uL (1.8-7.0); NEUT % 55.7 % (50.0-75.0); NRBC % 0.1 % (0.0-0.0); RBC 4.85 Mil/uL (4.40-5.90); RED CELL DISTRIBUTION WIDTH 23.2 % (11.5-14.5); WHITE BLOOD COUNT 7.8 K/uL (4.8-10.8)
[2017-11-30 06:55] LABS: INR 1.1 (0.9-1.2); PARTIAL THROMBOPLASTIN TIME 39.8 Seconds (25.6-37.1); PROTHROMBIN TIME 11.8 Seconds (9.8-13.1)
[2017-11-30] MEDS: Albuterol-Ipratrop 3 mg / 0.5 (3 ml) UD INH SCH ×3 (07:20→20:30)
[2017-11-30] MEDS: Multivitamin With Minerals Tab PO SCH (08:38)
[2017-11-30] MEDS: Pantoprazole 40 mg EC Tab PO SCH (08:39)
[2017-11-30] MEDS: Metoprolol Succinate 25 mg XL Tab PO SCH (08:56)
--- NOTE | 2017-11-30 10:27 | PCM.PYCHPN ---
Psychiatric Progress Note - Psychiatric Progress Note Patient seen today, length of contact: Patient evaluated, case discussed with team, chart reviewed Patient Chief Complaint: "I'm depressed." Problems Identified/Issues Discussed: Patient reports that his mood is improving. He denies current AH/VH/SI/HI. He denies current signs/symptoms of ETOH w/drawal. Medication Change: Yes (Stop Ativan) Medical Record Reviewed: Yes Consults ordered or reviewed: Medicine consult Mental Status Examination - Cognitive Function Orientation: Person, Place, Situation, Time Memory: Intact Attention: WNL Concentration: WNL Association: WNL Fund of Knowledge: [facility] Decription of patient's judgement and insights: Chronic poor I/J re: Alcohol Abuse; otherwise fair I/J - Mood Mood: Depressed - Affect Affect: Constricted - Speech Speech: Appropriate - Formal Thought Process Formal Thought Process: No Impairment Psychotic Thoughts and Behaviors: Denies AH/VH/paranoia/delusions - Suicidal Ideation Suicidal Ideation: No - Homicidal Ideation Homicidal Ideation: No Goal/Treatment Plan - Goal/Treatment Plan Need for Continued Stay: Discharge may exacerbated symptoms Progress Toward Problem(s) and Goals/Treatment Plan: Alcohol Induced Mood Disorder; Alcohol Use Disorder, Severe -Individual and group therapy -Stop Ativan for ETOH w/drawal -Thiamine, Folate -Continue Lexapro 10 mg PO Daily -Medicine consult -Nicotine patch -Disposition planning- will likely discharge tomorrow if patient continues to improve clinically Estimated Date of D/C: 12/01/17 - Smoking Cessation Smoking Cessation Initiated: Yes
--- NOTE | 2017-11-30 22:52 | CP.PCM.PN ---
Subjective - Date & Time of Evaluation Date of Evaluation: 11/30/17 Time of Evaluation: 12:25 Objective - Vital Signs/Intake and Output Vital Signs (last 24 hours): Temp Pulse Resp BP Pulse Ox 98.1 F 68 19 112/70 97 11/30/17 16:02 11/30/17 16:02 11/30/17 16:02 11/30/17 16:02 11/29/17 05:54 - Medications Medications: Current Medications Acetaminophen (Tylenol 325mg Tab) 650 mg PO Q4 PRN PRN Reason: Pain, moderate (4-7) Al Hydrox/Mg Hydrox/Simethicone (Maalox Plus 30 Ml) 30 ml PO Q4 PRN PRN Reason: Dyspepsia Albuterol/Ipratropium (Duoneb 3 Mg/0.5 Mg (3 Ml) Ud) 3 ml INH RQ6 [facility] Last Admin: 11/30/17 20:30 Dose: Not Given Bismuth Subsalicylate (Pepto-Bismol) 524 mg PO Q4 PRN PRN Reason: Diarrhea Escitalopram Oxalate (Lexapro) 10 mg PO DAILY [facility] Last Admin: 11/30/17 08:39 Dose: 10 mg Folic Acid (Folic Acid) 1 mg PO DAILY [facility] Last Admin: 11/30/17 08:40 Dose: 1 mg Gabapentin (Neurontin) 100 mg PO TID [facility] Last Admin: 11/30/17 16:04 Dose: 100 mg Lorazepam (Ativan) 0.5 mg PO HS PRN PRN Reason: Insomnia Stop: 12/10/17 06:14 Lorazepam (Ativan) 0.5 mg PO Q6 PRN PRN Reason: Anixety/Agitation Stop: 12/10/17 06:14 Last Admin: 11/28/17 22:45 Dose: 0.5 mg Losartan Potassium (Cozaar) 50 mg PO DAILY [facility] Last Admin: 11/30/17 08:58 Dose: Not Given Magnesium Hydroxide (Milk Of Magnesia) 30 ml PO HS PRN PRN Reason: Constipation Metoprolol Succinate (Toprol Xl) 25 mg PO DAILY [facility] Last Admin: 11/30/17 08:56 Dose: Not Given Multivitamins/Minerals (Therapeutic-M Tab) 1 tab PO DAILY [facility] Last Admin: 11/30/17 08:38 Dose: 1 tab Nicotine (Nicoderm Cq) 1 patch TD DAILY [facility] Last Admin: 11/30/17 08:41 Dose: 1 patch Pantoprazole Sodium (Protonix Ec Tab) 40 mg PO DAILY [facility] Last Admin: 11/30/17 08:39 Dose: 40 mg Tamsulosin HCl (Flomax) 0.4 mg PO HS [facility] Last Admin: 11/30/17 21:09 Dose: 0.4 mg Thiamine HCl (Vitamin B1 Tab) 100 mg PO DAILY [facility] Last Admin: 11/30/17 08:38 Dose: 100 mg Topiramate (Topamax) 50 mg PO BID [facility] Last Admin: 11/30/17 16:04 Dose: 50 mg - Labs Labs: 11/30/17 06:20 11/25/17 21:30 PT 11.8 Seconds (9.8-13.1) 11/30/17 06:20 INR 1.1 (0.9-1.2) 11/30/17 06:20 APTT 39.8 Seconds (25.6-37.1) H 11/30/17 06:20 Assessment and Plan (1) Alcohol abuse with intoxication Status: Acute
[2017-12-01] MEDS: Albuterol-Ipratrop 3 mg / 0.5 (3 ml) UD INH SCH ×2 (01:00→07:14)
[2017-12-01 06:03] VITALS: BP 119/64; PULSE 59; RESP 20; TEMP 97.9
--- NOTE | 2017-12-01 08:38 | PCM.PYCHDC ---
Mental Status Examination - Mental Status Examination Orientation: Person, Place, Situation, Time Memory: Intact Mood: Neutral Affect: Broad Speech: Appropriate Attention: WNL Concentration: WNL Association: WNL Fund of Knowledge: WNL Formal Thought Process: No Impairment Description of patient's judgement and insight: Chronic poor I/J re: Alcohol Abuse; otherwise fair I/J Psychotic Thoughts and Behaviors: Denies AH/VH/paranoia/delusions Suicidal Ideation: No Current Homicidal Ideation?: No Discharge Summary - Discharge Note Reason for Hospitalization: HPI: 62 y/o male who was brought into ED by EMS due to acute alcohol intoxication (BAL 316), presented with worsening depression in the context of alcohol abuse and non-compliance with medications. He drinks ETOH daily. In the ER he reproted suicidal ideation, but denies current ideation to harm himself or others. Social stressors include having a strained relationship w / his daughter. He reports depression, feelings of helplessness/hopelessness, low energy, low motivation. NO AH/VH/paranoia. PPHx: Multiple past psychiatric admissions for depression and ETOH abuse. Recently discharged from [facility] on 11/15/17. PMHx: H/o seizure disorder, HTN, Asthma, COPD, HLD, PAD, PVD, CAD (s/p bypass), BPH, DM SHx: On disability, has 6 children (39yo, 29yo, 27yo, 27yo, 17yo, 16yo); Drinks 1 pint rum/day; smokes 1ppd ALL: NKDA Consultations:: List each consultation separately and include: 1. Reason for request. 2. Findings. 3. Follow-up Consultations: Medicine consult Summary of Hospital Course include:: 1. Description of specific treatment plan utilized for patients during their course of treatmen. 2. Summarize the time- course for resolution of acute symptoms and/or regressed behaviors. 3. Describe issues identified and worked on during hospitalization. 4. Describe medication utilized. 5. Describe medical problems identified and treated. 6. Reassessment of suicide risk Summary of Hospital Course: Patient was admitted to the psychiatry unit. Individual and group therapy were provided. Patient was treated w/ Ativan to prevent alcohol withdrawal and then gradually tapered off. No current signs/symptoms of ETOH withdrawal. Patient was stabilized on Lexapro 10 mg PO Daily. He was seen by medicine consult and restarted on his home medications, which he is non-compliant with as an outpatient. Psychoeducation provided re: dangers of alcohol abuse. Patient is refusing inpatient alcohol rehabilitation services at this time. He is psychiatrically stable for discharge with outpatient follow-up. - Diagnosis (1) Alcohol abuse with alcohol-induced mood disorder Current Visit: No Status: Chronic - Final Diagnosis (DSM 5) Condition upon Discharge: STABLE DSM 5: Alcohol Induced Mood Disorder; Alcohol Use Disorder, Severe Disposition: HOME/ ROUTINE Follow-up Treatment Plan: Alcohol Induced Mood Disorder; Alcohol Use Disorder, Severe -Individual and group therapy -Thiamine, Folate -Continue Lexapro 10 mg PO Daily -Medicine consult -Nicotine patch -Discharge with outpatient follow-up Prescriptions/Medication Reconciliation: Nicotine 21 mg/24 hr [Nicoderm Cq] 1 patch TD DAILY #30 patch - Smoking Cessation Smoking Cessation Medication prescribed: Yes - Antipsychotic Medications Pt discharged on 2 or more routine antipsychotic medications: No
[2017-12-01] MEDS: Pantoprazole 40 mg EC Tab PO SCH (08:50)
[2017-12-01] MEDS: Multivitamin With Minerals Tab PO SCH (08:50)
[2017-12-01] MEDS: Metoprolol Succinate 25 mg XL Tab PO SCH (08:52)
== END 2017-12-01 12:22 | disposition home or self-care (01) | DRG 897 ==
LOC: H.ER 18:37 → H.ERHOLD 11-26 02:02 → H.STEP 11-26 05:47
PROVIDERS: ADMIT Psychiatry & Neurology Psychiatry; ATTEND Psychiatry & Neurology Psychiatry
PROC: 3E0F7GC Introduction of Other Therapeutic Substance into Respiratory Tract, Via Natural or Artificial Opening (ICD-10-PCS; principal; 2017-11-26)
PROC: GZ51ZZZ Individual Psychotherapy, Behavioral (ICD-10-PCS; 2017-11-26)
DX: F10.24 Alcohol dependence with alcohol-induced mood disorder (principal); F10.239 Alcohol dependence with withdrawal, unspecified; E11.22 Type 2 diabetes mellitus with diabetic chronic kidney disease; F32.3 Major depressive disorder, single episode, severe with psychotic features; E11.51 Type 2 diabetes mellitus with diabetic peripheral angiopathy without gangrene; R45.851 Suicidal ideations; B15.9 Hepatitis A without hepatic coma; G40.909 Epilepsy, unspecified, not intractable, without status epilepticus; G47.30 Sleep apnea, unspecified; I12.9 Hypertensive chronic kidney disease with stage 1 through stage 4 chronic kidney disease, or unspecified chronic kidney disease; I25.10 Atherosclerotic heart disease of native coronary artery without angina pectoris; I25.2 Old myocardial infarction; J43.9 Emphysema, unspecified; N18.9 Chronic kidney disease, unspecified; E78.5 Hyperlipidemia, unspecified; N40.0 Benign prostatic hyperplasia without lower urinary tract symptoms; R04.0 Epistaxis; Y90.8 Blood alcohol level of 240 mg/100 ml or more; Z79.82 Long term (current) use of aspirin; Z79.899 Other long term (current) drug therapy; Z87.01 Personal history of pneumonia (recurrent); Z87.891 Personal history of nicotine dependence; Z91.14 Patient's other noncompliance with medication regimen; Z91.19 Patient's noncompliance with other medical treatment and regimen; Z95.1 Presence of aortocoronary bypass graft; Z95.5 Presence of coronary angioplasty implant and graft; D50.9 Iron deficiency anemia, unspecified; F41.9 Anxiety disorder, unspecified; G43.909 Migraine, unspecified, not intractable, without status migrainosus; J40 Bronchitis, not specified as acute or chronic; K29.70 Gastritis, unspecified, without bleeding; M19.90 Unspecified osteoarthritis, unspecified site; E78.00 Pure hypercholesterolemia, unspecified

== ENCOUNTER 2017-12-03 23:07 | Inpatient (IN) | payer OTHER, MEDICARE, MEDICAID ==
[2017-12-03 23:08] VITALS: BMI 29.2
[2017-12-04 00:31] LABS: BASO # 0.2 K/uL (0.0-0.2); BASO % 2.1 % (0.0-2.0); EOS # 0.3 K/uL (0.0-0.7); EOS % 4.1 % (0.0-4.0); HEMOGLOBIN 11.9 g/dL (12.0-18.0); LYMPH # 3.6 K/uL (1.0-4.3); LYMPH % 46.7 % (20.0-40.0); MEAN CELL VOLUME 78.2 fl (80.0-94.0); MEAN CORPUSCULAR HEMOGLOBIN 24.9 pg (27.0-31.0); MEAN CORPUSCULAR HGB CONC 31.9 g/dL (33.0-37.0); MEAN PLATELET VOLUME 8.3 fl (7.2-11.7); MONO # 0.8 K/uL (0.0-0.8); MONO % 10.8 % (0.0-10.0); NEUT # 2.8 K/uL (1.8-7.0); NEUT % 36.3 % (50.0-75.0); NRBC % 0.1 % (0.0-0.0); RBC 4.77 Mil/uL (4.40-5.90); WHITE BLOOD COUNT 7.6 K/uL (4.8-10.8)
--- NOTE | 2017-12-04 00:32 | ED PDOC ---
HPI: Psych/Substance Abuse Time Seen by Provider: 12/03/17 23:18 Chief Complaint (Nursing): Alcohol Ingestion Chief Complaint (Provider): Alcohol Ingestion History Per: Patient, EMS History/Exam Limitations: intoxication Onset/Duration Of Symptoms: Hrs (prior to arrival) Current Symptoms Are (Timing): Still Present Modifying Factor(s): Alcohol Associated Symptoms: Anxiety, Depression Additional Complaint(s): Rhett Pineda is a 62 year old male with a past medical history of anxiety, CAD, hypertension, hyperlipidemia, and depression, was brought to the ER by EMS for alcohol intoxication, prior to arrival. History and review of systems were unreliable due to intoxication. Patient states that he drank a lot because he was depressed. He has a recent psychiatric admission to the hospital and was discharged 2 days ago. Patient offers no other medical complaints at this time. PMD: none provided Past Medical History Reviewed: Historical Data, Nursing Documentation, Vital Signs Vital Signs: Last Vital Signs Temp 97.8 F 12/03/17 23:15 Pulse 68 12/03/17 23:15 Resp 16 12/03/17 23:15 BP 123/70 12/03/17 23:15 Pulse Ox 97 12/03/17 23:15 - Medical History PMH: Anxiety, Arthritis, Asthma, Benign Prostatic Hyperplasia, Bipolar Disorder , Bronchitis, CAD, Cardia Arrhythmia, COPD, Depression, Diabetes, Emphysema, Gastritis, Hepatitis (PATIENT STATED HE HAS HEPATITIS BUT COULD NOT RECALL WHICH ONE), HTN, Hypercholesterolemia, Hyperlipidemia, Migraine, Pancreatitis, Pneumonia, Seizures (ETOH related), Sleep Apnea Denies: Anemia, Diverticulitis, Fractures, HIV, Hyperthyroidism, Hypothyroidism, Pulmonary Embolism, Chronic Kidney Disease (States recent diagnosis), Sickle Cell Disease, Sexually Transmitted Disease - Surgical History Surgical History: CABG ((quadruple bypass) 2010), Coronary Stent - Family History Family History: States: Unknown Family Hx - Social History Alcohol: > 2 Drinks/Day - Immunization History Hx Tetanus Toxoid Vaccination: Yes Hx Influenza Vaccination: Yes Hx Pneumococcal Vaccination: Yes - Home Medications Home Medications: Ambulatory Orders Medication Instructions Recorded Topiramate [Topamax] 50 mg PO BID #60 tab 09/10/17 Pantoprazole Sodium [Protonix] 40 mg PO DAILY 09/19/17 Escitalopram [Lexapro] 10 mg PO DAILY #30 tab 09/23/17 Folic Acid 1 mg PO DAILY tab 09/23/17 Gabapentin [Neurontin] 100 mg PO TID #90 cap 09/23/17 Losartan [Cozaar] 50 mg PO DAILY #30 tab 09/23/17 Tamsulosin HCl [Flomax] 0.4 mg PO HS #30 cap.er.24h 09/23/17 Thiamine [Vitamin B1 Tab] 100 mg PO DAILY tab 09/23/17 Albuterol/Ipratropium [Duoneb 3 3 ml INH RQ6 neb 11/15/17 mg/0.5 mg (3 ml) UD] Aspirin [Ecotrin] 81 mg PO DAILY [facility] 11/15/17 Metoprolol Succinate [Toprol XL] 25 mg PO DAILY tab 11/15/17 Multimineral/Multivitamin 1 tab PO DAILY tab 11/30/17 [Therapeutic-M Tab] Nicotine 21 mg/24 hr [Nicoderm Cq] 1 patch TD DAILY #30 patch 11/30/17 - Allergies Allergies/Adverse Reactions: Allergies Allergy/AdvReac Type Severity Reaction Status Date / Time No Known Allergies Allergy Verified 11/25/17 18:38 Review of Systems ROS Statement: Except As Marked, All Systems Reviewed And Found Negative Review Of Systems: ROS cannot be obtained secondary to pt's inabilty to answer questions. (obtainable but limited and unreliable) Psych: Positive for: Depression Physical Exam - Reviewed Nursing Documentation Reviewed: Yes Vital Signs Reviewed: Yes - Physical Exam Appears: Negative for: Well (disheveled) Neurologic/Psych: Positive for: Mood/Affect (depressed/flat), Other (slowe to answer questions). Negative for: Alert ((+) lethargic), Motor/Sensory Deficits - ECG O2 Sat by Pulse Oximetry: 97 (RA) Pulse Ox Interpretation: Normal Medical Decision Making Medical Decision Making: Time: 00:10 Impression: Alcohol intoxication and depression Plan: --EKG --Acetaminophen --Alcohol Serum --CMP --Drug Screen --Magnesium --Phosphorous --Salicylate --ED Urine Dipstick --CBC --Coag --CXR --Glucose, Blood, POC Scribe Attestation: Documented by Norma Delaney acting as a scribe for Mariel Soares MD. Scribdarlene Attestation: All medical record entries made by the Scribe were at my direction and personally dictated by me. I have reviewed the chart and agree that the record accurately reflects my personal performance of the history, physical exam, medical decision making, and the department course for this patient. I have also personally directed, reviewed, and agree with the discharge instructions and disposition. Disposition - Disposition
[2017-12-04 00:40] LABS: ACETAMINOPHEN < 10.0 ug/ml (10.0-30.0); SALICYLATE < 1.0 mg/dl
[2017-12-04 00:51] LABS: ALBUMIN 4.2 g/dL (3.5-5.0); ALT/SGPT 38 U/L (21-72); AST/SGOT 47 U/L (17-59); BLOOD UREA NITROGEN 12 mg/dl (9-20); CALCIUM 8.8 mg/dL (8.4-10.2); GFR AFRICAN-AMERICAN > 60; GFR NON-AFRICAN AMERICAN > 60
[2017-12-04 01:00] LABS: PARTIAL THROMBOPLASTIN TIME 41.4 Seconds (25.6-37.1); PROTHROMBIN TIME 10.8 Seconds (9.8-13.1)
[2017-12-04 01:38] LABS: BENZODIAZEPINES, UR NEGATIVE (NEGATIVE)
[2017-12-04 01:43] LABS: BARBITURATES, UR NEGATIVE (NEGATIVE); OPIATES, UR NEGATIVE (NEGATIVE); PHENCYCLIDINE, UR NEGATIVE (NEGATIVE)
[2017-12-04 04:04] VITALS: O2SAT 96
--- NOTE | 2017-12-04 06:59 | PCM.BM ---
<KvngGusCong Hernandez - Last Filed: 12/04/17 06:57> Treatment Plan Problems - Problems identified on initial assessmt Feelings of Worthlessness Date Initiated: 12/04/17 Time Initiated: 06:58 Assessment reference: NA Status: Active Hopelessness/Helpessness Date Initiated: 12/04/17 Time Initiated: 06:58 Assessment reference: NA Status: Active Treatment assets and liabiliti Patient Assests: adapts well, cooperative, ADL independent, negotiates basic needs, cognitively intact Patient Liabilities: poor support system, relationship conflicts, other (ETOH ABUSE) - Milieu Protocol Maintain good personal hygiene: daily Encourage regular showers, daily Remind patient to perform daily oral care, daily Assist patient to perform ADL's Maintain personal safety: every shift Educate patient to report safety concerns to staff, every shift Monitor environment for contraband/sharps Medication safety: Monitor for expected outcome, potential side effects: every shift, Assess barriers to learning: every shift, Assess readiness for medication education: every shift <Yessi Day - Last Filed: 12/06/17 09:41> - Diagnosis (1) Alcohol abuse with alcohol-induced disorder Status: Acute Interventions: Medication management, Individual and group therapy, Psychoeducation 12/06/17 09:42 <Rose Mary Harrell M - Last Filed: 12/06/17 11:45> Discharge/Continuing Care - Additional Comments 12/06/17 11:45 Pt seen and discussed in team meeting. Reason for hospitalization reviewed and discussed. Pt reported "I had a relapse on Wednesday and bounced off the floor 2x. " When asked to further describe "bounce off the floor 2x" pt stated that he fell on the floor 2x and "blacked out." Pt reported he then called 911 because "it was a holiday weekend and i was depressed and decided to come and chill out. " At time of team meeting, pt denied SI and HI. Pt denied AVH. Pt denied any paranoia. Pt reported he was scheduled for IOP at [facility] in [place], [place] today, December 06. Pt's social and medical issues reviewed and discussed. Pt's medications reviewed. Attending psychiatrist reviewed anti- depressant with pt and stated "I don't think i need it." Tx plan reviewed. SW will continue to follow Case. Inpatient rehab offered to pt and pt deferred it. Pt is not agreeable to inpatient rehab at the present time. - Treatment Team Participation Discussed with Family/SO: No Was Patient/Family/SO present at Treatment Team Meeting: Yes <Franky Peguero - Last Filed: 12/06/17 14:19> Family Contact Family involvement: Famliy/SO not involved Family contact: Patient declines to allow family contact at present Family contact name: Pt denied. - Outside Agency Agency 1 Care involvment: Information-sharing Agency contact name: [facility] Malaika Shukla Agency contact number: - Goals for Treatment Patient goals for treatment: Pt would like to return home to pay his rent. Discharge/Continuing Care - Education Needs Education Needs: Patient Medication, Patient Diagnosis/Disease Process, Patient Coping Skills, Patient Placement options, Patient Community resources, Patient Personal Hygiene/Grooming, Patient Aftercare Safety Plan - Discharge Discharge Criteria: Tolerates medication w/o severe side effects, Free of Suicidal thoughts, Free of agitation, Normal sleep pattern, No longer exhibiting s/s of withdrawal, Reduction of target symptoms Discharge to:: Home
--- NOTE | 2017-12-04 09:52 | RAD ---
HISTORY: intox COMPARISON: Chest radiograph dated 11/26/2017. FINDINGS: LUNGS: No active pulmonary disease. PLEURA: No significant pleural effusion identified, no pneumothorax apparent. CARDIOVASCULAR: Prior sternotomy with sternal wires and surgical clips redemonstrated. Atherosclerotic aortic calcifications. Cardiomediastinal silhouette stably enlarged. OSSEOUS STRUCTURES: Unchanged. VISUALIZED UPPER ABDOMEN: Normal. OTHER FINDINGS: None. IMPRESSION: No active disease.
[2017-12-04] MEDS ORDERED: Alum-Mag Hydrox-Simethicone Susp (30 mL) PO PRN (11:14)
[2017-12-04] MEDS ORDERED: Magnesium Hydroxide Susp 30 ml UD PO PRN (11:14)
[2017-12-04] MEDS ORDERED: Bismuth Subsalicylate 262 mg/15 ml Sus (240 ml) PO PRN (11:14)
[2017-12-04 15:38] LABS: URINE BACTERIA RARE (<OCC); URINE BILIRUBIN NEGATIVE (NEGATIVE); URINE BLOOD NEGATIVE (NEGATIVE); URINE CLARITY CLEAR (Clear); URINE COLOR YELLOW (YELLOW); URINE GLUCOSE (UA) NEG (Normal); URINE LEUKOCYTE ESTERASE NEG Leu/uL (Negative); URINE PROTEIN 30 mg/dL (NEGATIVE); URINE UROBILINOGEN 0.2-1.0 mg/dL (0.2-1.0)
--- NOTE | 2017-12-04 15:43 | CARD ---
APPROVED REPORT EKG Measurement Heart [id number] <Conclusion> Sinus rhythm with 1st degree AV block Possible Left atrial enlargement Incomplete right bundle branch block Borderline ECG
[2017-12-04] MEDS ORDERED: Albuterol-Ipratrop 3 mg / 0.5 (3 ml) UD INH PRN (16:12)
--- NOTE | 2017-12-04 16:21 | PCM.PSYCH ---
Initial Psychiatric Evaluation - Initial Psychiatric Evaluation Chief Complaint (in patient's own words): was drinking wanted to take life mother is reportedly has cancer is concerned what will happen to him when she dies Patient's Reaction to Hospitalization: pt signed in voluntarily History of Present Illness and Precipitating Events: Rhett Pineda is a 62 year old male with a past medical history of anxiety, CAD, hypertension, hyperlipidemia, and depression, was brought to the ER by EMS for alcohol intoxication, prior to arrival. History and review of systems were unreliable due to intoxication. Patient states that he drank a lot because he was depressed. He has a recent psychiatric admission to the hospital and was discharged 2 days ago. Current Medications: Active Medications Generic Name Dose Route Start Last Admin Trade Name Freq PRN Reason Stop Dose Admin Acetaminophen 650 mg 12/04/17 11:14 Tylenol 325mg Tab PO Q4 PRN Pain, moderate (4-7) Al Hydrox/Mg Hydrox/Simethicone 30 ml 12/04/17 11:14 Maalox Plus 30 Ml PO Q4 PRN Dyspepsia Albuterol/Ipratropium 3 ml 12/04/17 16:12 Duoneb 3 Mg/0.5 Mg (3 Ml) Ud INH RQ6 PRN Shortness of Breath Aspirin 81 mg 12/05/17 09:00 Ecotrin PO DAILY ORIANA Bismuth Subsalicylate 524 mg 12/04/17 11:14 Pepto-Bismol PO Q4 PRN Diarrhea Folic Acid 1 mg 12/05/17 09:00 Folic Acid PO DAILY ORIANA Gabapentin 300 mg 12/04/17 17:00 Neurontin PO TID ORIANA Lorazepam 0.5 mg 12/04/17 11:14 Ativan PO 12/18/17 11:15 HS PRN Insomnia Lorazepam 2 mg 12/04/17 12:04 Ativan PO Q4 PRN withdrawl etoh Lorazepam 1 mg 12/04/17 13:00 12/04/17 12:54 Ativan PO 1 mg TID ORIANA Administration Losartan Potassium 50 mg 12/05/17 09:00 Cozaar PO DAILY OR[facility]NA Magnesium Hydroxide 30 ml 12/04/17 11:14 Milk Of Magnesia PO HS PRN Constipation Metoprolol Succinate 25 mg 12/05/17 09:00 Toprol Xl PO DAILY [facility]NA Multivitamins/Vitamin C 1 ml 12/05/17 09:00 Poly Vi Mariana Liq PO DAILY [facility] Nicotine 1 patch 12/05/17 09:00 Nicoderm Cq TD DAILY [facility] Pantoprazole Sodium 40 mg 12/05/17 09:00 Protonix Ec Tab PO DAILY [facility] Tamsulosin HCl 0.4 mg 12/04/17 22:00 Flomax PO DAILY [facility] Thiamine HCl 100 mg 12/04/17 16:15 Vitamin B1 Tab PO DAILY ORIA[facility] Topiramate 50 mg 12/04/17 17:00 Topamax PO BID ORIANA Past Psychiatric History - Past Psychiatric History Prior Psychiatric Treatment: was inpt [facility] was d/c'd several days ago At what hospital: [facility] History of Family Illness: mother with reported terminally ill with cancer Pertinent Medical Hx (Current Medical&Sleep Prob, Allergies): Allergies Allergy/AdvReac Type Severity Reaction Status Date / Time No Known Allergies Allergy Verified 11/25/17 18:38 Topiramate [Topamax] 50 mg PO BID #60 tab 09/10/17 Pantoprazole Sodium [Protonix] 40 mg PO DAILY 09/19/17 Escitalopram [Lexapro] 10 mg PO DAILY #30 tab 09/23/17 Folic Acid 1 mg PO DAILY tab 09/23/17 Gabapentin [Neurontin] 100 mg PO TID #90 cap 09/23/17 Losartan [Cozaar] 50 mg PO DAILY #30 tab 09/23/17 Tamsulosin HCl [Flomax] 0.4 mg PO HS #30 cap.er.24h 09/23/17 Thiamine [Vitamin B1 Tab] 100 mg PO DAILY tab 09/23/17 Aspirin [Ecotrin] 81 mg PO DAILY tabec 11/15/17 Metoprolol Succinate [Toprol XL] 25 mg PO DAILY tab 11/15/17 Multimineral/Multivitamin [Therapeutic-M Tab] 1 tab PO DAILY tab 11/30/17 Nicotine 21 mg/24 hr [Nicoderm Cq] 1 patch TD DAILY #30 patch 11/30/17 Albuterol/Ipratropium [Duoneb 3 mg/0.5 mg (3 ml) UD] 3 ml INH RQ6 PRN 12/04/17 Review of Systems - Psychiatric Psychiatric: Abnormal Sleep Pattern, Anhedonia, Depression, Suicidal Ideation Mental Status Examination - Personal Presentation Personal Presentation: Looks stated age - Affect Affect: Flat - Motor Activity Motor Activity: Psychomotor Retardation - Formal Thought Process Formal Thought Process: Circumstantial - Obsessions/Compulsions Obsessions: No Compulsions: No - Cognitive Functions Orientation: Person, Place, Situation, Time Sensorium: Alert Attention/Concentration: Attentive Judgement: Imparied, as evidence by: Other Memory: Recent impaired, as evidenced by: Other - Risk Risk: Suicidal - Strength & Assets Inventory Strength & Assets Inventory: Family support, Life experience, Cooperative, Other
[2017-12-04] MEDS: Cilostazol 100 mg Tab UD PO SCH (17:21)
--- NOTE | 2017-12-04 21:43 | CP.PCM.HP ---
Past Patient History - Infectious Disease Hx of Infectious Diseases: None - Past Medical History & Family History Past Medical History?: Yes - Past Social History Alcohol: > 2 Drinks/Day - CARDIAC Hx Cardiac Disorders: Yes Hx Cardia Arrhythmia: Yes Hx Hypertension: Yes Other/Comment: Hx: cabg Quadruple bypass 2010 - PULMONARY Hx Asthma: Yes Hx Bronchitis: Yes Hx Chronic Obstructive Pulmonary Disease (COPD): Yes Hx Emphysema: Yes Hx Pneumonia: Yes Hx Pulmonary Embolism: No Hx Sleep Apnea: Yes - NEUROLOGICAL Hx Seizures: Yes (ETOH related) - HEENT Hx HEENT Problems: No - RENAL Hx Chronic Kidney Disease: No (States recent diagnosis) - ENDOCRINE/METABOLIC Hx Diabetes Mellitus Type 2: Yes (takes no meds as per pt.) Hx Hyperthyroidism: No Hx Hypothyroidism: No - HEMATOLOGICAL/ONCOLOGICAL Hx Human Immunodeficiency Virus (HIV): No Other/Comment: Hx Hepatitis does not know type - INTEGUMENTARY Hx Dermatological Problems: No - MUSCULOSKELETAL/RHEUMATOLOGICAL Hx Falls: No - GASTROINTESTINAL Hx Gastrointestinal Disorders: Yes Hx Diverticulitis: No Hx Gastritis: Yes (etoh abuse) Hx Pancreatitis: Yes - GENITOURINARY/GYNECOLOGICAL Hx Sexually Transmitted Disorders: No - PSYCHIATRIC Hx Substance Use: No - SURGICAL HISTORY Hx Surgeries: Yes Hx Coronary Artery Bypass Graft: Yes ((quadruple bypass) 2010) Hx Coronary Stent: Yes - ANESTHESIA Hx Anesthesia: Yes Hx Anesthesia Reactions: No Hx Malignant Hyperthermia: No Has any member of the family had a problem w/ anesthesia?: No Meds Allergies/Adverse Reactions: Allergies Allergy/AdvReac Type Severity Reaction Status Date / Time No Known Allergies Allergy Verified 11/25/17 18:38 Results - Vital Signs Recent Vital Signs: Last Vital Signs Temp 97.1 F L 12/04/17 15:24 Pulse 72 12/04/17 15:24 Resp 19 12/04/17 15:24 BP 158/79 H 12/04/17 15:24 Pulse Ox 96 12/04/17 04:03 - Labs Result Diagrams: 12/03/17 00:10 12/03/17 00:10 Labs: Laboratory Results - last 24 hr 12/03/17 12/03/17 12/03/17 00:10 00:10 00:10 WBC 7.6 RBC 4.77 Hgb 11.9 L Hct 37.3 MCV 78.2 L MCH 24.9 L MCHC 31.9 L RDW 23.0 H Plt Count 226 MPV 8.3 Neut % (Auto) 36.3 L Lymph % (Auto) 46.7 H [place] % (Auto) 10.8 H Eos % (Auto) 4.1 H Baso % (Auto) 2.1 H Neut # (Auto) 2.8 Lymph # (Auto) 3.6 [place] # (Auto) 0.8 Eos # (Auto) 0.3 Baso # (Auto) 0.2 PT INR APTT Sodium 145 Potassium 3.9 Chloride 107 Carbon Dioxide 20 L Anion Gap 22 H BUN 12 Creatinine 0.8 Est GFR ( Amer) > 60 Est GFR (Non-Af Amer) > 60 POC Glucose (mg/dL) Random Glucose 98 Calcium 8.8 Phosphorus 3.6 Magnesium 2.1 Total Bilirubin 0.3 AST 47 ALT 38 Alkaline Phosphatase 56 Total Protein 8.5 H Albumin 4.2 Globulin 4.3 H Albumin/Globulin Ratio 1.0 Urine Color Urine Clarity Urine pH Ur Specific [place] Urine Protein Urine Glucose (UA) Urine Ketones Urine Blood Urine Nitrate Urine Bilirubin Urine Urobilinogen Ur Leukocyte Esterase Urine RBC (Auto) Urine Microscopic WBC Urine Bacteria Salicylates < 1.0 Urine Opiates Screen Urine Methadone Screen Acetaminophen < 10.0 L Ur Barbiturates Screen Ur Phencyclidine Scrn Ur Amphetamines Screen U Benzodiazepines Scrn U Oth Cocaine Metabols U Cannabinoids Screen Alcohol, Quantitative 264 H 12/03/17 12/03/17 12/04/17 00:10 01:14 01:01 WBC RBC Hgb Hct MCV MCH MCHC RDW Plt Count MPV Neut % (Auto) Lymph % (Auto) [place] % (Auto) Eos % (Auto) Baso % (Auto) Neut # (Auto) Lymph # (Auto) [place] # (Auto) Eos # (Auto) Baso # (Auto) PT 10.8 INR 1.0 APTT 41.4 H Sodium Potassium Chloride Carbon Dioxide Anion Gap BUN Creatinine Est GFR ( Amer) Est GFR (Non-Af Amer) POC Glucose (mg/dL) 98 Random Glucose Calcium Phosphorus Magnesium Total Bilirubin AST ALT Alkaline Phosphatase Total Protein Albumin Globulin Albumin/Globulin Ratio Urine Color Urine Clarity Urine pH Ur Specific [place] Urine Protein Urine Glucose (UA) Urine Ketones Urine Blood Urine Nitrate Urine Bilirubin Urine Urobilinogen Ur Leukocyte Esterase Urine RBC (Auto) Urine Microscopic WBC Urine Bacteria Salicylates Urine Opiates Screen Negative Urine Methadone Screen Negative Acetaminophen Ur Barbiturates Screen Negative Ur Phencyclidine Scrn Negative Ur Amphetamines Screen Negative U Benzodiazepines Scrn Negative U Oth Cocaine Metabols Negative U Cannabinoids Screen Negative Alcohol, Quantitative 12/04/17 14:00 WBC RBC Hgb Hct MCV MCH MCHC RDW Plt Count MPV Neut % (Auto) Lymph % (Auto) [place] % (Auto) Eos % (Auto) Baso % (Auto) Neut # (Auto) Lymph # (Auto) [place] # (Auto) Eos # (Auto) Baso # (Auto) PT INR APTT Sodium Potassium Chloride Carbon Dioxide Anion Gap BUN Creatinine Est GFR ( Amer) Est GFR (Non-Af Amer) POC Glucose (mg/dL) Random Glucose Calcium Phosphorus Magnesium Total Bilirubin AST ALT Alkaline Phosphatase Total Protein Albumin Globulin Albumin/Globulin Ratio Urine Color Yellow Urine Clarity Clear Urine pH 7.0 Ur Specific [place] 1.015 Urine Protein 30 Urine Glucose (UA) Neg Urine Ketones Negative Urine Blood Negative Urine Nitrate Negative Urine Bilirubin Negative Urine Urobilinogen 0.2-1.0 Ur Leukocyte Esterase Neg Urine RBC (Auto) < 1 Urine Microscopic WBC < 1 Urine Bacteria Rare Salicylates Urine Opiates Screen Urine Methadone Screen Acetaminophen Ur Barbiturates Screen Ur Phencyclidine Scrn Ur Amphetamines Screen U Benzodiazepines Scrn U Oth Cocaine Metabols U Cannabinoids Screen Alcohol, Quantitative
[2017-12-05 07:41] LABS: HEMOGLOBIN 11.9 g/dL (12.0-18.0); MEAN CELL VOLUME 78.5 fl (80.0-94.0); MEAN CORPUSCULAR HEMOGLOBIN 24.3 pg (27.0-31.0); RBC 4.91 Mil/uL (4.40-5.90); RED CELL DISTRIBUTION WIDTH 22.3 % (11.5-14.5)
[2017-12-05 08:14] LABS: LDL CHOLESTEROL 155 mg/dL (0-129)
[2017-12-05 08:31] LABS: FERRITIN 32.3 ng/Ml (17.9-464)
[2017-12-05] MEDS: Multivitamin With Minerals Tab PO SCH (08:33)
[2017-12-05] MEDS: Pantoprazole 40 mg EC Tab PO SCH (08:34)
[2017-12-05] MEDS: Metoprolol Succinate 25 mg XL Tab PO SCH (08:37)
[2017-12-05] MEDS: Cilostazol 100 mg Tab UD PO SCH ×2 (08:37→16:26)
[2017-12-05 08:59] LABS: ALBUMIN 3.8 g/dL (3.5-5.0); ALT/SGPT 29 U/L (21-72); AST/SGOT 38 U/L (17-59); BLOOD UREA NITROGEN 14 mg/dl (9-20); CALCIUM 9.4 mg/dL (8.4-10.2); GFR AFRICAN-AMERICAN > 60; GFR NON-AFRICAN AMERICAN > 60; HDL CHOLESTEROL 33 MG/DL (30-70)
[2017-12-05 13:06] LABS: FOLATE 19.4 ng/mL
--- NOTE | 2017-12-05 15:00 | PCM.PYCHPN ---
Psychiatric Progress Note - Psychiatric Progress Note Patient seen today, length of contact: chart reviewed case discussed with team Patient Chief Complaint: sleep alittle bit better, denies trembling. appetite is good. denies dt's was drinking wanted to take life mother is reportedly has cancer is concerned what will happen to him when she dies Problems Identified/Issues Discussed: alteration in mood alteration in coping Medical Problems: per chart Diagnostic Results: per psychiatry per medicine per nursing per socially responsible investment adviser DSM 5 Symptoms Update: denies trembling mood somewhat less depressed Medication Change: Yes (make lorazepam for etoh w/d weaning 1mg po bid) Medical Record Reviewed: Yes Consults ordered or reviewed: pt seen by hosptialist Mental Status Examination - Cognitive Function Orientation: Person, Place, Situation, Time Attention: WNL Concentration: WNL Association: WNL Fund of Knowledge: [facility] Decription of patient's judgement and insights: impaired - Mood Mood: Depressed - Affect Affect: Constricted, Flat - Speech Speech: Soft - Formal Thought Process Formal Thought Process: Circumstantial - Homicidal Ideation Homicidal Ideation: No Goal/Treatment Plan - Goal/Treatment Plan Need for Continued Stay: Remain at risks for inpatient hospitalization, Severe depression anxiety Progress Toward Problem(s) and Goals/Treatment Plan: inpt milieu vital signs and clinical observation per protocol and per clinical status pt seen by hospitalist decrease etoh wean lorazepam to 1mg po bid discharge planning in progress Estimated Date of D/C: 12/08/17 - Smoking Cessation Smoking Cessation Initiated: No Reason for not providing: pt defers
--- NOTE | 2017-12-05 23:04 | CP.PCM.PN ---
Subjective - Date & Time of Evaluation Date of Evaluation: 12/05/17 Time of Evaluation: 09:15 Objective - Vital Signs/Intake and Output Vital Signs (last 24 hours): Temp Pulse Resp BP Pulse Ox 97.3 F L 78 18 123/64 96 12/05/17 15:11 12/05/17 15:11 12/05/17 15:11 12/05/17 15:11 12/04/17 04:03 - Medications Medications: Current Medications Acetaminophen (Tylenol 325mg Tab) 650 mg PO Q4 PRN PRN Reason: Pain, moderate (4-7) Last Admin: 12/05/17 19:33 Dose: 650 mg Al Hydrox/Mg Hydrox/Simethicone (Maalox Plus 30 Ml) 30 ml PO Q4 PRN PRN Reason: Dyspepsia Albuterol/Ipratropium (Duoneb 3 Mg/0.5 Mg (3 Ml) Ud) 3 ml INH RQ6 PRN PRN Reason: Shortness of Breath Aspirin (Ecotrin) 81 mg PO DAILY [facility] Last Admin: 12/05/17 08:34 Dose: 81 mg Bismuth Subsalicylate (Pepto-Bismol) 524 mg PO Q4 PRN PRN Reason: Diarrhea Cilostazol (Pletal) 100 mg PO BID [facility] Last Admin: 12/05/17 16:26 Dose: 100 mg Folic Acid (Folic Acid) 1 mg PO DAILY [facility] Last Admin: 12/05/17 08:34 Dose: 1 mg Gabapentin (Neurontin) 300 mg PO TID [facility] Last Admin: 12/05/17 16:26 Dose: 300 mg Lorazepam (Ativan) 0.5 mg PO HS PRN PRN Reason: Insomnia Stop: 12/18/17 11:15 Lorazepam (Ativan) 2 mg PO Q4 PRN PRN Reason: withdrawl etoh Lorazepam (Ativan) 1 mg PO BID [facility] Last Admin: 12/05/17 16:26 Dose: 1 mg Losartan Potassium (Cozaar) 50 mg PO DAILY [facility] Last Admin: 12/05/17 08:35 Dose: 50 mg Magnesium Hydroxide (Milk Of Magnesia) 30 ml PO HS PRN PRN Reason: Constipation Metoprolol Succinate (Toprol Xl) 25 mg PO DAILY [facility] Last Admin: 12/05/17 08:37 Dose: 25 mg Multivitamins/Minerals (Therapeutic-M Tab) 1 tab PO DAILY [facility] Last Admin: 12/05/17 08:33 Dose: 1 tab Nicotine (Nicoderm Cq) 1 patch TD DAILY [facility] Last Admin: 12/05/17 08:36 Dose: 1 patch Pantoprazole Sodium (Protonix Ec Tab) 40 mg PO DAILY [facility] Last Admin: 12/05/17 08:34 Dose: 40 mg Tamsulosin HCl (Flomax) 0.4 mg PO DAILY [facility] Last Admin: 12/05/17 08:33 Dose: 0.4 mg Thiamine HCl (Vitamin B1 Tab) 100 mg PO DAILY [facility] Last Admin: 12/05/17 08:33 Dose: 100 mg Topiramate (Topamax) 50 mg PO BID [facility] Last Admin: 12/05/17 16:27 Dose: 50 mg - Labs Labs: 12/05/17 06:00 12/05/17 06:00 PT 10.8 Seconds (9.8-13.1) 12/03/17 00:10 INR 1.0 (0.9-1.2) 12/03/17 00:10 APTT 41.4 Seconds (25.6-37.1) H 12/03/17 00:10
[2017-12-06] MEDS: Pantoprazole 40 mg EC Tab PO SCH (09:32)
[2017-12-06] MEDS: Multivitamin With Minerals Tab PO SCH (09:32)
[2017-12-06] MEDS: Cilostazol 100 mg Tab UD PO SCH ×2 (09:32→17:13)
[2017-12-06] MEDS: Metoprolol Succinate 25 mg XL Tab PO SCH (09:33)
--- NOTE | 2017-12-06 10:57 | PCM.PYCHPN ---
Psychiatric Progress Note - Psychiatric Progress Note Patient seen today, length of contact: Patient evaluated, case discussed with team, chart reviewed Patient Chief Complaint: "I'm depressed." Problems Identified/Issues Discussed: Patient discussed his frustration with continued struggles with alcohol abuse. He continues to refuse inpatient alcohol treatment. He reports that his mood is depressed, but he denies AH/VH/SI/HI. No acute signs/symptoms of ETOH withdrawal. Patient is not agreeable to treatment with antidepressants at this time because he stated "I don't need them." Medication Change: Yes (Taper Ativan) Medical Record Reviewed: Yes Consults ordered or reviewed: Medicine consult Mental Status Examination - Cognitive Function Orientation: Person, Place, Situation, Time Memory: Intact Attention: WNL Concentration: WNL Association: WNL Fund of Knowledge: [facility] Decription of patient's judgement and insights: Fair I/J; chronic poor I/J re: alcohol abuse - Mood Mood: Depressed - Affect Affect: Constricted, Depressed - Speech Speech: Appropriate - Formal Thought Process Formal Thought Process: No Impairment Psychotic Thoughts and Behaviors: NO AH/VH/paranoia/delusions - Suicidal Ideation Suicidal Ideation: No - Homicidal Ideation Homicidal Ideation: No Goal/Treatment Plan - Goal/Treatment Plan Need for Continued Stay: Remain at risks for inpatient hospitalization, Discharge may exacerbated symptoms Progress Toward Problem(s) and Goals/Treatment Plan: Alcohol Induced Mood Disorder; Alcohol Use Disorder -Individual and group therapy -Taper Ativan -Patient currently refusing treatment with antidepressants -Individual and group therapy -Psychoeducation -Patient refusing inpatient substance abuse program -Disposition planning Estimated Date of D/C: 12/08/17
--- NOTE | 2017-12-06 16:22 | CP.PCM.PN ---
Subjective - Date & Time of Evaluation Date of Evaluation: 12/06/17 Time of Evaluation: 04:10 Objective - Vital Signs/Intake and Output Vital Signs (last 24 hours): Temp Pulse Resp BP Pulse Ox 98.2 F 72 19 98/56 L 96 12/06/17 15:40 12/06/17 15:40 12/06/17 15:40 12/06/17 15:40 12/04/17 04:03 - Medications Medications: Current Medications Acetaminophen (Tylenol 325mg Tab) 650 mg PO Q4 PRN PRN Reason: Pain, moderate (4-7) Last Admin: 12/06/17 05:23 Dose: 650 mg Al Hydrox/Mg Hydrox/Simethicone (Maalox Plus 30 Ml) 30 ml PO Q4 PRN PRN Reason: Dyspepsia Albuterol/Ipratropium (Duoneb 3 Mg/0.5 Mg (3 Ml) Ud) 3 ml INH RQ6 PRN PRN Reason: Shortness of Breath Aspirin (Ecotrin) 81 mg PO DAILY [facility] Last Admin: 12/06/17 09:37 Dose: 81 mg Bismuth Subsalicylate (Pepto-Bismol) 524 mg PO Q4 PRN PRN Reason: Diarrhea Cilostazol (Pletal) 100 mg PO BID [facility] Last Admin: 12/06/17 09:32 Dose: 100 mg Folic Acid (Folic Acid) 1 mg PO DAILY [facility] Last Admin: 12/06/17 09:32 Dose: 1 mg Gabapentin (Neurontin) 300 mg PO TID [facility] Last Admin: 12/06/17 13:44 Dose: 300 mg Lorazepam (Ativan) 0.5 mg PO HS PRN PRN Reason: Insomnia Stop: 12/18/17 11:15 Lorazepam (Ativan) 2 mg PO Q4 PRN PRN Reason: withdrawl etoh Lorazepam (Ativan) 0.5 mg PO TID [facility] Last Admin: 12/06/17 13:44 Dose: 0.5 mg Losartan Potassium (Cozaar) 50 mg PO DAILY [facility] Last Admin: 12/06/17 09:37 Dose: 50 mg Magnesium Hydroxide (Milk Of Magnesia) 30 ml PO HS PRN PRN Reason: Constipation Metoprolol Succinate (Toprol Xl) 25 mg PO DAILY [facility] Last Admin: 12/06/17 09:33 Dose: 25 mg Multivitamins/Minerals (Therapeutic-M Tab) 1 tab PO DAILY [facility] Last Admin: 12/06/17 09:32 Dose: 1 tab Nicotine (Nicoderm Cq) 1 patch TD DAILY [facility] Last Admin: 12/06/17 09:31 Dose: 1 patch Pantoprazole Sodium (Protonix Ec Tab) 40 mg PO DAILY [facility] Last Admin: 12/06/17 09:32 Dose: 40 mg Tamsulosin HCl (Flomax) 0.4 mg PO DAILY [facility] Last Admin: 12/06/17 09:31 Dose: 0.4 mg Thiamine HCl (Vitamin B1 Tab) 100 mg PO DAILY [facility] Last Admin: 12/06/17 09:32 Dose: 100 mg Topiramate (Topamax) 50 mg PO BID [facility] Last Admin: 12/06/17 09:31 Dose: 50 mg - Labs Labs: 12/05/17 06:00 12/05/17 06:00 PT 10.8 Seconds (9.8-13.1) 12/03/17 00:10 INR 1.0 (0.9-1.2) 12/03/17 00:10 APTT 41.4 Seconds (25.6-37.1) H 12/03/17 00:10
--- NOTE | 2017-12-07 08:54 | PCM.PYCHPN ---
Psychiatric Progress Note - Psychiatric Progress Note Patient seen today, length of contact: Patient evaluated, case discussed with team, chart reviewed Patient Chief Complaint: "I'm depressed." Problems Identified/Issues Discussed: Patient reports that his mood is improving. He is more goal oriented. No current signs/symptoms of ETOH withdrawal. No AH/VH/SI/HI. Patient continues to state that he is not interested in treatment with antidepressants at this time. Medication Change: Yes (Taper Ativan) Medical Record Reviewed: Yes Consults ordered or reviewed: Medicine consult Mental Status Examination - Cognitive Function Orientation: Person, Place, Situation, Time Memory: Intact Attention: WNL Concentration: WNL Association: [facility] Fund of Knowledge: [facility] Decription of patient's judgement and insights: Fair I/J; chronic poor I/J re: alcohol abuse - Mood Mood: Neutral - Affect Affect: Constricted - Speech Speech: Appropriate - Formal Thought Process Formal Thought Process: No Impairment Psychotic Thoughts and Behaviors: NO AH/VH/paranoia/delusions - Suicidal Ideation Suicidal Ideation: No - Homicidal Ideation Homicidal Ideation: No Goal/Treatment Plan - Goal/Treatment Plan Need for Continued Stay: Discharge may exacerbated symptoms Progress Toward Problem(s) and Goals/Treatment Plan: Alcohol Induced Mood Disorder; Alcohol Use Disorder -Individual and group therapy -Taper Ativan -Patient currently refusing treatment with antidepressants -Individual and group therapy -Psychoeducation -Patient refusing inpatient substance abuse program -Disposition planning- likely discharge tomorrow if patient continues to improve clinicaly Estimated Date of D/C: 12/08/17
[2017-12-07] MEDS: Multivitamin With Minerals Tab PO SCH (09:08)
[2017-12-07] MEDS: Pantoprazole 40 mg EC Tab PO SCH (09:09)
[2017-12-07] MEDS: Cilostazol 100 mg Tab UD PO SCH ×2 (09:09→16:57)
[2017-12-07] MEDS: Metoprolol Succinate 25 mg XL Tab PO SCH (09:10)
--- NOTE | 2017-12-07 21:20 | CP.PCM.PN ---
Subjective - Date & Time of Evaluation Date of Evaluation: 12/07/17 Time of Evaluation: 13:00 Objective - Vital Signs/Intake and Output Vital Signs (last 24 hours): Temp Pulse Resp BP Pulse Ox 98.2 F 71 19 134/70 96 12/07/17 15:23 12/07/17 15:23 12/07/17 15:23 12/07/17 15:23 12/04/17 04:03 - Medications Medications: Current Medications Acetaminophen (Tylenol 325mg Tab) 650 mg PO Q4 PRN PRN Reason: Pain, moderate (4-7) Last Admin: 12/07/17 00:45 Dose: 650 mg Al Hydrox/Mg Hydrox/Simethicone (Maalox Plus 30 Ml) 30 ml PO Q4 PRN PRN Reason: Dyspepsia Albuterol/Ipratropium (Duoneb 3 Mg/0.5 Mg (3 Ml) Ud) 3 ml INH RQ6 PRN PRN Reason: Shortness of Breath Aspirin (Ecotrin) 81 mg PO DAILY [facility] Last Admin: 12/07/17 09:08 Dose: 81 mg Bismuth Subsalicylate (Pepto-Bismol) 524 mg PO Q4 PRN PRN Reason: Diarrhea Cilostazol (Pletal) 100 mg PO BID [facility] Last Admin: 12/07/17 16:57 Dose: 100 mg Folic Acid (Folic Acid) 1 mg PO DAILY [facility] Last Admin: 12/07/17 09:09 Dose: 1 mg Gabapentin (Neurontin) 300 mg PO TID [facility] Last Admin: 12/07/17 16:57 Dose: 300 mg Lorazepam (Ativan) 0.5 mg PO HS PRN PRN Reason: Insomnia Stop: 12/18/17 11:15 Last Admin: 12/07/17 21:12 Dose: 0.5 mg Lorazepam (Ativan) 2 mg PO Q4 PRN PRN Reason: withdrawl etoh Lorazepam (Ativan) 0.5 mg PO BID [facility] Last Admin: 12/07/17 16:57 Dose: 0.5 mg Losartan Potassium (Cozaar) 50 mg PO DAILY [facility] Last Admin: 12/07/17 09:08 Dose: Not Given Magnesium Hydroxide (Milk Of Magnesia) 30 ml PO HS PRN PRN Reason: Constipation Metoprolol Succinate (Toprol Xl) 25 mg PO DAILY [facility] Last Admin: 12/07/17 09:10 Dose: Not Given Multivitamins/Minerals (Therapeutic-M Tab) 1 tab PO DAILY [facility] Last Admin: 12/07/17 09:08 Dose: 1 tab Nicotine (Nicoderm Cq) 1 patch TD DAILY [facility] Last Admin: 12/07/17 09:07 Dose: 1 patch Pantoprazole Sodium (Protonix Ec Tab) 40 mg PO DAILY [facility] Last Admin: 12/07/17 09:09 Dose: 40 mg Tamsulosin HCl (Flomax) 0.4 mg PO DAILY [facility] Last Admin: 12/07/17 09:09 Dose: 0.4 mg Thiamine HCl (Vitamin B1 Tab) 100 mg PO DAILY [facility] Last Admin: 12/07/17 09:09 Dose: 100 mg Topiramate (Topamax) 50 mg PO BID [facility] Last Admin: 12/07/17 16:57 Dose: 50 mg - Labs Labs: 12/05/17 06:00 12/05/17 06:00 PT 10.8 Seconds (9.8-13.1) 12/03/17 00:10 INR 1.0 (0.9-1.2) 12/03/17 00:10 APTT 41.4 Seconds (25.6-37.1) H 12/03/17 00:10
[2017-12-08 05:49] VITALS: BP 130/71; PULSE 75; RESP 20; TEMP 97
[2017-12-08] MEDS: Cilostazol 100 mg Tab UD PO SCH (08:45)
[2017-12-08] MEDS: Metoprolol Succinate 25 mg XL Tab PO SCH (08:46)
[2017-12-08] MEDS: Multivitamin With Minerals Tab PO SCH (08:46)
[2017-12-08] MEDS: Pantoprazole 40 mg EC Tab PO SCH (08:47)
--- NOTE | 2017-12-08 08:49 | PCM.PYCHDC ---
Mental Status Examination - Mental Status Examination Orientation: Person, Place, Situation, Time Memory: Intact Mood: Neutral Affect: Broad Speech: Appropriate Attention: WNL Concentration: WNL Association: [facility]NL Fund of Knowledge: WNL Formal Thought Process: No Impairment Description of patient's judgement and insight: Fair I/J; chronic poor I/J re: alcohol abuse Psychotic Thoughts and Behaviors: NO AH/VH/paranoia/delusions Suicidal Ideation: No Current Homicidal Ideation?: No Discharge Summary - Discharge Note Reason for Hospitalization: As per initial HPI note: Rhett Pineda is a 62 year old male with a past medical history of anxiety, CAD, hypertension, hyperlipidemia, and depression, was brought to the ER by EMS for alcohol intoxication, prior to arrival. History and review of systems were unreliable due to intoxication. Patient states that he drank a lot because he was depressed. He has a recent psychiatric admission to the hospital and was discharged 2 days ago. Consultations:: List each consultation separately and include: 1. Reason for request. 2. Findings. 3. Follow-up Consultations: Medicine consult Summary of Hospital Course include:: 1. Description of specific treatment plan utilized for patients during their course of treatmen. 2. Summarize the time- course for resolution of acute symptoms and/or regressed behaviors. 3. Describe issues identified and worked on during hospitalization. 4. Describe medication utilized. 5. Describe medical problems identified and treated. 6. Reassessment of suicide risk Summary of Hospital Course: Patient was admitted to the geriatric psychiatry unit. Individual and group therapy were provided. Psychoeducation provided on the dangers of alcohol abuse. Patient was treated with Ativan to prevent alcohol withdrawal. No current signs/symptoms of ETOH withdrawal. Patient refused treatment with an antidepressant. Motivational interviewing provided. Patient is currently psychiatrically stable for discharge with outpatient follow-up. Patient currently refusing inpatient rehabiliation services. Patient informed to call 911 or go to the nearest ER if he has suicidal ideation in the future. No current depression/anxiety/AH/VH/SI/HI/paranoia/delusions. - Diagnosis (1) Alcohol abuse with alcohol-induced disorder Current Visit: No Status: Chronic - Final Diagnosis (DSM 5) Condition upon Discharge: STABLE DSM 5: Alcohol induced mood disorder; Alcohol Use Disorder, Severe Disposition: HOME/ ROUTINE Follow-up Treatment Plan: Alcohol Induced Mood Disorder; Alcohol Use Disorder, severe -Ativan stopped -Patient currently refusing treatment with antidepressants -Individual and group therapy -Psychoeducation -Patient refusing inpatient substance abuse program -Disposition planning- discharge with outpatient follow-up - Smoking Cessation Smoking Cessation Medication prescribed: Yes Reason for not providing: Patient provided with the nicotine patch during admission - Antipsychotic Medications Pt discharged on 2 or more routine antipsychotic medications: No
== END 2017-12-08 14:46 | disposition home or self-care (01) | DRG 897 ==
LOC: H.ER 23:07 → H.ERHOLD 12-04 05:58 → UNDOADMIN 12-04 05:58 → H.ER 12-04 06:42 → H.STEP 12-04 06:44 → H.ERHOLD 12-04 06:44 → H.STEP 12-04 06:45 → UNDOADMIN 12-04 06:45
PROVIDERS: ADMIT Psychiatry & Neurology Psychiatry; ATTEND Psychiatry & Neurology Psychiatry
DX: F10.229 Alcohol dependence with intoxication, unspecified (principal); E78.5 Hyperlipidemia, unspecified; E11.9 Type 2 diabetes mellitus without complications; G47.30 Sleep apnea, unspecified; I10 Essential (primary) hypertension; I25.10 Atherosclerotic heart disease of native coronary artery without angina pectoris; Z87.01 Personal history of pneumonia (recurrent); Z95.1 Presence of aortocoronary bypass graft; Z95.5 Presence of coronary angioplasty implant and graft; F32.9 Major depressive disorder, single episode, unspecified

== ENCOUNTER 2017-12-13 18:19 | Inpatient (IN) | payer OTHER, MEDICAID ==
[2017-12-13 18:20] VITALS: BMI 29.2
[2017-12-13 18:24] VITALS: O2SAT 99
--- NOTE | 2017-12-13 23:19 | ED PDOC ---
HPI: Psych/Substance Abuse Time Seen by Provider: 12/13/17 21:35 Chief Complaint (Nursing): Psychiatric Evaluation Chief Complaint (Provider): Psychiatric Evaluation History Per: Patient History/Exam Limitations: no limitations Onset/Duration Of Symptoms: Mins (prior to arrival) Current Symptoms Are (Timing): Still Present Additional History Per: EMS Additional Complaint(s): 62 year old male with a history of alcoholism, depression, bipolar disorder, CAD, CABG and HTN, brought in by mobile crisis unit for psychiatric evaluation. Minutes prior to arrival, patient made a suicidal statement to his early childhood education worker about overdosing on pills. He said he did take any pills but admits to alcohol. He reports being depressed and complaining of left scapular pain. He states that he fell while intoxicated onto his upper back. Discharged 5 days ago from psychiatric unit. PMD: none provided Past Medical History Reviewed: Historical Data, Nursing Documentation, Vital Signs Vital Signs: Last Vital Signs Temp 98.7 F 12/13/17 18:21 Pulse 84 12/13/17 18:21 Resp 16 12/13/17 18:21 BP 122/65 12/13/17 18:21 Pulse Ox 99 12/13/17 18:21 - Medical History PMH: Anxiety, Arthritis, Asthma, Benign Prostatic Hyperplasia, Bipolar Disorder , Bronchitis, CAD, Cardia Arrhythmia, COPD, Depression, Diabetes, Emphysema, Gastritis, Hepatitis (PATIENT STATED HE HAS HEPATITIS BUT COULD NOT RECALL WHICH ONE), HTN, Hypercholesterolemia, Hyperlipidemia, Migraine, Pancreatitis, Pneumonia, Seizures (ETOH related), Sleep Apnea Denies: Anemia, Diverticulitis, Fractures, HIV, Hyperthyroidism, Hypothyroidism, Pulmonary Embolism, Chronic Kidney Disease (States recent diagnosis), Sickle Cell Disease, Sexually Transmitted Disease - Surgical History Surgical History: CABG ((quadruple bypass) 2010), Coronary Stent - Family History Family History: States: Unknown Family Hx - Social History Current smoker - smoking cessation education provided: Yes (Heavy Smoker ) Alcohol: Social - Immunization History Hx Tetanus Toxoid Vaccination: Yes Hx Influenza Vaccination: Yes Hx Pneumococcal Vaccination: Yes - Home Medications Home Medications: Ambulatory Orders Medication Instructions Recorded Topiramate [Topamax] 50 mg PO BID #60 tab 09/10/17 Pantoprazole Sodium [Protonix] 40 mg PO DAILY 09/19/17 Folic Acid 1 mg PO DAILY tab 09/23/17 Gabapentin [Neurontin] 100 mg PO TID #90 cap 09/23/17 Losartan [Cozaar] 50 mg PO DAILY #30 tab 09/23/17 Tamsulosin HCl [Flomax] 0.4 mg PO HS #30 cap.er.24h 09/23/17 Thiamine [Vitamin B1 Tab] 100 mg PO DAILY tab 09/23/17 Aspirin [Ecotrin] 81 mg PO DAILY tabec 11/15/17 Metoprolol Succinate [Toprol XL] 25 mg PO DAILY tab 11/15/17 Multimineral/Multivitamin 1 tab PO DAILY tab 11/30/17 [Therapeutic-M Tab] Albuterol/Ipratropium [Duoneb 3 3 ml INH RQ6 PRN 12/04/17 mg/0.5 mg (3 ml) UD] - Allergies Allergies/Adverse Reactions: Allergies Allergy/AdvReac Type Severity Reaction Status Date / Time No Known Allergies Allergy Verified 12/14/17 02:20 Review of Systems ROS Statement: Except As Marked, All Systems Reviewed And Found Negative Musculoskeletal: Positive for: Back Pain Psych: Positive for: Depression, Suicidal ideation Physical Exam - Reviewed Nursing Documentation Reviewed: Yes Vital Signs Reviewed: Yes - Physical Exam Appears: Positive for: No Acute Distress Head Exam: Positive for: ATRAUMATIC, NORMOCEPHALIC Skin: Positive for: Normal Color, Warm, Dry Eye Exam: Positive for: EOMI, Normal appearance, PERRL Neck: Positive for: Normal, Painless ROM, Supple Cardiovascular/Chest: Positive for: Regular Rate, Rhythm. Negative for: Murmur Respiratory: Positive for: Normal Breath Sounds. Negative for: Respiratory Distress Gastrointestinal/Abdominal: Positive for: Normal Exam, Soft Back: Positive for: Other (left scapular tenderness) Extremity: Positive for: Normal ROM Neurologic/Psych: Positive for: Alert, Oriented. Negative for: Motor/Sensory Deficits - Laboratory Results Result Diagrams: 12/13/17 23:40 12/13/17 23:40 - ECG O2 Sat by Pulse Oximetry: 99 (RA) Pulse Ox Interpretation: Normal Medical Decision Making Medical Decision Making: Time: 21:35 Impression: 62 year old male with depression and SI in setting on left scapular pain and bipolar disorder --EKG --Acetaminophen --Alcohol serum --CMP --Urine drug --Salicylate --Crisis evaluation as ordered --Urine dip --CBC with differentials --PTT --Prothrombin Time --Tylenol 650 mg PO --1:1 observation --Urinalysis Time: 01:35 --Labs reviewed and show no significant clinical abnormalities. He was evaluated by crisis and will be admitted for depression and alcohol abuse. He is medically cleared and stable for psychiatric admission. Scribe Attestation: Documented by Betsy Tavarez acting as a scribe for Matthew Ma MD, MD Scribe Attestation: All medical record entries made by the Scribe were at my direction and personally dictated by me. I have reviewed the chart and agree that the record accurately reflects my personal performance of the history, physical exam, medical decision making, and the department course for this patient. I have also personally directed, reviewed, and agree with the discharge instructions and disposition. Disposition - Clinical Impression Clinical Impression: Alcohol dependence, Depression - Patient ED Disposition Is Patient to be Admitted: Yes - Disposition Disposition Time: 01:35 Condition: FAIR - Pt Status Changed To: Hospital Disposition Of: Inpatient - Admit Certification Admit to Inpatient:: After my assessment, the patient will require hospitalization for at least two midnights. This is because of the severity of symptoms shown, intensity of services needed, and/or the medical risk in this patient being treated as an outpatient.
[2017-12-14 00:15] LABS: BASO # 0.1 K/uL (0.0-0.2); BASO % 2.2 % (0.0-2.0); EOS # 0.2 K/uL (0.0-0.7); EOS % 3.6 % (0.0-4.0); HEMOGLOBIN 11.5 g/dL (12.0-18.0); LYMPH % 32.9 % (20.0-40.0); MEAN CELL VOLUME 79.1 fl (80.0-94.0); MEAN CORPUSCULAR HEMOGLOBIN 24.9 pg (27.0-31.0); MEAN CORPUSCULAR HGB CONC 31.4 g/dL (33.0-37.0); MEAN PLATELET VOLUME 8.1 fl (7.2-11.7); MONO # 0.8 K/uL (0.0-0.8); MONO % 13.1 % (0.0-10.0); NEUT # 2.9 K/uL (1.8-7.0); NEUT % 48.2 % (50.0-75.0); NRBC % 0.2 % (0.0-0.0); RBC 4.62 Mil/uL (4.40-5.90); RED CELL DISTRIBUTION WIDTH 23.2 % (11.5-14.5); WHITE BLOOD COUNT 5.9 K/uL (4.8-10.8)
[2017-12-14 00:19] LABS: ACETAMINOPHEN < 10.0 ug/ml (10.0-30.0); SALICYLATE < 1.0 mg/dl
[2017-12-14 00:22] LABS: ALBUMIN 3.9 g/dL (3.5-5.0); ALT/SGPT 39 U/L (21-72); AST/SGOT 34 U/L (17-59); BLOOD UREA NITROGEN 9 mg/dl (9-20); CALCIUM 8.7 mg/dL (8.4-10.2); GFR AFRICAN-AMERICAN > 60; GFR NON-AFRICAN AMERICAN > 60
[2017-12-14 00:24] LABS: PARTIAL THROMBOPLASTIN TIME 38.1 Seconds (25.6-37.1); PROTHROMBIN TIME 11.4 Seconds (9.8-13.1)
[2017-12-14 01:15] LABS: SQUAMOUS EPITHIAL < 1 /hpf (0-5); URINE BILIRUBIN NEGATIVE (NEGATIVE); URINE BLOOD NEGATIVE (NEGATIVE); URINE CLARITY SLIGHTY-CLOUDY (Clear); URINE COLOR YELLOW (YELLOW); URINE GLUCOSE (UA) NEG (Normal); URINE LEUKOCYTE ESTERASE NEG Leu/uL (Negative); URINE PROTEIN 100 mg/dL (NEGATIVE); URINE UROBILINOGEN 0.2-1.0 mg/dL (0.2-1.0)
[2017-12-14 01:27] LABS: BENZODIAZEPINES, UR NEGATIVE (NEGATIVE)
[2017-12-14 01:36] LABS: BARBITURATES, UR NEGATIVE (NEGATIVE); OPIATES, UR NEGATIVE (NEGATIVE); PHENCYCLIDINE, UR NEGATIVE (NEGATIVE)
[2017-12-14] MEDS ORDERED: Alum-Mag Hydrox-Simethicone Susp (30 mL) PO PRN (04:31)
[2017-12-14] MEDS ORDERED: Bismuth Subsalicylate 262 mg/15 ml Sus (240 ml) PO PRN (04:31)
[2017-12-14] MEDS ORDERED: Magnesium Hydroxide Susp 30 ml UD PO PRN (04:31)
--- NOTE | 2017-12-14 04:31 | PCM.BM ---
<Sara Jaime - Last Filed: 12/14/17 04:28> Treatment Plan Problems - Problems identified on initial assessmt Hopelessness/Helplessness Date Initiated: 12/14/17 Time Initiated: 04:29 Assessment reference: NA Status: Active Medication Nonadherence Date Initiated: 12/14/17 Time Initiated: : Assessment reference: NA Status: Active Treatment assets and liabiliti Patient Assests: adapts well, cooperative, ADL independent, negotiates basic needs, good past tx response, cognitively intact Patient Liabilities: poor support system, relationship conflicts, substance abuse, medical problems - Milieu Protocol Maintain good personal hygiene: daily Encourage regular showers, daily Remind patient to perform daily oral care, daily Assist patient to perform ADL's Conduct patient checks and document Observation sheet: Q15 minutes Maintain personal safety: every shift Educate patient to report safety concerns to staff, every shift Monitor environment for contraband/sharps Medication safety: Monitor for expected outcome, potential side effects: every shift, Assess barriers to learning: every shift, Assess readiness for medication education: every shift <Yessi Day - Last Filed: 12/14/17 08:53> - Diagnosis (1) Alcohol abuse with alcohol-induced mood disorder Status: Chronic Interventions: Psychoeducation, Medication management, Individual and group therapy 12/14/17 08:53 (2) Alcohol abuse Status: Chronic Interventions: Psychoeducation, Medication management, Individual and group therapy 12/14/17 08:53 <Rose Mary Harrell - Last Filed: 12/15/17 15:38> Family Contact Family involvement: Famliy/SO not involved - Outside Agency [facility] Care involvment: Information-sharing Agency contact number: [phone] - Goals for Treatment Patient goals for treatment: Pt to be encouraged to attend activity and clinical groups 3-5x per week to identify at least 2 contributing factors to depression and suicide attempt. Psycho-education to be provided to patient/ family regarding benefits of medications and treatment adherence. Pt to be encouraged to participate in group milieu to develop effective coping skills to reduce depression and free of suicide ideation. Coordinate discharge resource needs by providing referral for psychiatric treatment follow up in the community. Discharge/Continuing Care - Education Needs Education Needs: Family Medication, Family Diagnosis/Disease Process, Family Coping Skills, Family Placement options, Family Community resources, Family Activities of Daily Living, Family Uses of Medical Equipment, Family Health Practices/Safety, Family Personal Hygiene/Grooming - Discharge Discharge Criteria: Tolerates medication w/o severe side effects, Free of Suicidal thoughts, Normal sleep pattern, Ability to care for self, No longer exhibiting s/s of withdrawal, Reduction of target symptoms - Additional Comments 12/15/17 15:34 Pt seen and discussed in team meeting. Reason for hospitalization reviewed and discussed. Pt reported he was referred to the ED by [facility] patient case managerMalaika due to "suicide tendencies." Pt reported he had been "drinking and taking some pills." Pt advised to further elaborate on "taking some pills." Pt reported taking "some heart pills, neurontin, and topamax." Pt reported he took some before [facility] patient case manager arrived and others "while she was there." Pt also reported consuming 1 pint of Rum on the date of admission between 10am and 1: 30PM shortly before [facility] case workers arrival. At time of ED arrival, pt's BAL was 34. Social and medical issues reviewed. Medications reviewed. Pt non- compliant with medications at home. Tx plan reviewed and discussed. Pt deferred inpateint rehab. Pt only agreeable to [facility] for after care follow up. SW to continue to follow case. - Treatment Team Participation Discussed with Family/SO: No Was Patient/Family/SO present at Treatment Team Meeting: Yes
[2017-12-14 07:07] LABS: IRON 35 ug/dL (49-181)
[2017-12-14 07:16] LABS: % IRON SATURATION 9 % (20-55); TOTAL IRON BINDING CAPACITY 388 ug/dL (250-450)
[2017-12-14 07:17] LABS: HDL CHOLESTEROL 40 MG/DL (30-70); LDL CHOLESTEROL 137 mg/dL (0-129)
[2017-12-14 07:23] LABS: T4 6.09 ug/dl (5.5-11.0)
[2017-12-14 07:40] LABS: FERRITIN 17.3 ng/Ml (17.9-464)
--- NOTE | 2017-12-14 08:56 | PCM.PSYCH ---
Initial Psychiatric Evaluation - Initial Psychiatric Evaluation Type of Admission: Voluntary Legal Status: Capacity Chief Complaint (in patient's own words): "I'm depressed." Patient's Reaction to Hospitalization: HPI: 62 y/o male presents w/ worsening depression and self reported suicide attempt by taking 3 tablets of Topamax in the context of chronic alcohol abuse and non-compliance with any psychiatric or substance abuse treatment. He drinks ETOH daily. He reports depression, feelings of helplessness/hopelessness, low energy, low motivation. NO AH/VH/paranoia. He denies current suicidal ideation/plan/intent. PPHx: Multiple past psychiatric admissions for depression and ETOH abuse. Recently hospitalized twice this past month at [facility]. PMHx: H/o seizure disorder, HTN, Asthma, COPD, HLD, PAD, PVD, CAD (s/p bypass), BPH, DM SHx: On disability, has 6 children (39yo, 29yo, 27yo, 27yo, 17yo, 16yo); Drinks 1 pint rum/day; smokes 1ppd ALL: NKDA Current Medications: Active Medications Generic Name Dose Route Start Last Admin Trade Name Freq PRN Reason Stop Dose Admin Acetaminophen 650 mg 12/14/17 04:31 Tylenol 325mg Tab PO Q4 PRN Pain, moderate (4-7) Al Hydrox/Mg Hydrox/Simethicone 30 ml 12/14/17 04:31 Maalox Plus 30 Ml PO Q4 PRN Dyspepsia Bismuth Subsalicylate 524 mg 12/14/17 04:31 Pepto-Bismol PO Q4 PRN Diarrhea Folic Acid 1 mg 12/14/17 09:00 Folic Acid PO DAILY [facility] Lorazepam 0.5 mg 12/14/17 04:31 Ativan PO 12/28/17 04:32 HS PRN Insomnia Lorazepam 0.5 mg 12/14/17 04:31 Ativan PO 12/28/17 04:32 Q6 PRN Anixety/Agitation Lorazepam 1 mg 12/14/17 09:00 Ativan PO TID [facility] Magnesium Hydroxide 30 ml 12/14/17 04:31 Milk Of Magnesia PO HS PRN Constipation Multivitamins/Minerals 1 tab 12/14/17 09:00 Therapeutic-M Tab PO DAILY [facility] Thiamine HCl 100 mg 12/14/17 09:00 Vitamin B1 Tab PO DAILY [facility] Past Psychiatric History - Past Psychiatric History Previous Treatment History: Inpatient Pertinent Medical Hx (Current Medical&Sleep Prob, Allergies): Allergies Allergy/AdvReac Type Severity Reaction Status Date / Time No Known Allergies Allergy Verified 12/14/17 02:20 Topiramate [Topamax] 50 mg PO BID #60 tab 09/10/17 Pantoprazole Sodium [Protonix] 40 mg PO DAILY 09/19/17 Folic Acid 1 mg PO DAILY tab 09/23/17 Gabapentin [Neurontin] 100 mg PO TID #90 cap 09/23/17 Losartan [Cozaar] 50 mg PO DAILY #30 tab 09/23/17 Tamsulosin HCl [Flomax] 0.4 mg PO HS #30 cap.er.24h 09/23/17 Thiamine [Vitamin B1 Tab] 100 mg PO DAILY tab 09/23/17 Aspirin [Ecotrin] 81 mg PO DAILY tabec 11/15/17 Metoprolol Succinate [Toprol XL] 25 mg PO DAILY tab 11/15/17 Multimineral/Multivitamin [Therapeutic-M Tab] 1 tab PO DAILY tab 11/30/17 Albuterol/Ipratropium [Duoneb 3 mg/0.5 mg (3 ml) UD] 3 ml INH RQ6 PRN 12/04/17 Review of Systems - Psychiatric Psychiatric: As Per HPI, Abnormal Sleep Pattern, Anhedonia, Anxiety, Change in Appetite, Depression, Difficulty Concentrating, Hopelessness, Irritability, Mood Swings, Suicidal Ideation Mental Status Examination - Personal Presentation Personal Presentation: Looks stated age - Affect Affect: Constricted, Depressed - Motor Activity Motor Activity: Calm - Reliability in Providing Information Reliability in Providing Information: Fair - Speech Speech: Organized - Mood Mood: Depressed - Formal Thought Process Formal Thought Process: No Impairment - Hallucinations/Delusions Additional comments: No AH/VH/paranoia/delusions - Obsessions/Compulsions Obsessions: No Compulsions: No - Cognitive Functions Orientation: Person, Place, Situation, Time Sensorium: Alert Attention/Concentration: Attentive Judgement: Intact, as evidence by: Insight regarding need for hospitalization Memory: Recent intact, as evidence by: Ability to recall events of the day, Remote intact, as evidenced by: Abilit to recall sig. life events, Remote intact , as evidenced by: Ability to recall historical events - Risk Risk: Suicidal, Diminished functioning - Strength & Assets Inventory Strength & Assets Inventory: Cooperative - Limitations Limitations: Living alone DSM 5 DX - DSM 5 DSM 5 Diagnosis: Alcohol Induced Mood Disorder; Alcohol Use Disorder, Severe - Recommended/Plan of Treatment Treatment Recommendations and Plan of Treatment: Alcohol Induced Mood Disorder; Alcohol Use Disorder, Severe -Admit to psychiatry unit -No 1:1 indicated at this time as the patient can contract for safety -Individual and group therapy -Ativan for ETOH w/drawal -Thiamine, Folate -Restart Lexapro 10 mg PO Daily -Medicine consult -Nicotine patch -Disposition planning Projected ELOS: 4-7 days Discharge Plan and Discharge Criteria: Discharge when patient is psychiatrically stable - Smoking Cessation Smoking Cessation Initiated: Yes
[2017-12-14] MEDS: Multivitamin With Minerals Tab PO SCH (08:59)
[2017-12-14] MEDS ORDERED: Albuterol-Ipratrop 3 mg / 0.5 (3 ml) UD INH PRN (09:36)
[2017-12-14] MEDS ORDERED: Multivitamin With Minerals Tab PO SCH (09:45)
--- NOTE | 2017-12-14 12:16 | CARD ---
APPROVED REPORT EKG Measurement Heart [id number] <Conclusion> Normal sinus rhythm Possible Inferior infarct, age undetermined Abnormal ECG
--- NOTE | 2017-12-14 13:39 | CP.PCM.HP ---
Past Patient History - Infectious Disease Hx of Infectious Diseases: None - Past Medical History & Family History Past Medical History?: Yes - Past Social History Alcohol: Social - CARDIAC Hx Cardia Arrhythmia: Yes Hx Hypercholesterolemia: Yes Hx Hypertension: Yes - PULMONARY Hx Asthma: Yes Hx Bronchitis: Yes Hx Chronic Obstructive Pulmonary Disease (COPD): Yes Hx Emphysema: Yes Hx Pneumonia: Yes Hx Pulmonary Embolism: No Hx Sleep Apnea: Yes - NEUROLOGICAL Hx Migraine: Yes Hx Seizures: Yes (ETOH related) - HEENT Hx HEENT Problems: No - RENAL Hx Chronic Kidney Disease: No (States recent diagnosis) - ENDOCRINE/METABOLIC Hx Hyperthyroidism: No Hx Hypothyroidism: No - HEMATOLOGICAL/ONCOLOGICAL Hx Anemia: No Hx Human Immunodeficiency Virus (HIV): No Hx Sickle Cell Disease: No - INTEGUMENTARY Hx Dermatological Problems: No - MUSCULOSKELETAL/RHEUMATOLOGICAL Hx Arthritis: Yes Hx Fractures: No - GASTROINTESTINAL Hx Diverticulitis: No Hx Gastritis: Yes Hx Pancreatitis: Yes - GENITOURINARY/GYNECOLOGICAL Hx Sexually Transmitted Disorders: No - PSYCHIATRIC Hx Anxiety: Yes Hx Bipolar Disorder: Yes Hx Depression: Yes - SURGICAL HISTORY Hx Coronary Artery Bypass Graft: Yes ((quadruple bypass) 2010) Hx Coronary Stent: Yes - ANESTHESIA Hx Anesthesia: Yes Hx Anesthesia Reactions: No Hx Malignant Hyperthermia: No Meds Allergies/Adverse Reactions: Allergies Allergy/AdvReac Type Severity Reaction Status Date / Time No Known Allergies Allergy Verified 12/14/17 02:20 Results - Vital Signs Recent Vital Signs: Last Vital Signs Temp 98.1 F 12/14/17 05:53 Pulse 69 12/14/17 05:53 Resp 18 12/14/17 05:53 BP 128/68 12/14/17 05:53 Pulse Ox 99 12/14/17 04:45 - Labs Result Diagrams: 12/13/17 23:40 12/13/17 23:40 Labs: Laboratory Results - last 24 hr 12/13/17 12/13/17 12/13/17 23:40 23:40 23:40 WBC 5.9 RBC 4.62 Hgb 11.5 L Hct 36.5 MCV 79.1 L MCH 24.9 L MCHC 31.4 L RDW 23.2 H Plt Count 260 MPV 8.1 Neut % (Auto) 48.2 L Lymph % (Auto) 32.9 [place] % (Auto) 13.1 H Eos % (Auto) 3.6 Baso % (Auto) 2.2 H Neut # (Auto) 2.9 Lymph # (Auto) 2.0 [place] # (Auto) 0.8 Eos # (Auto) 0.2 Baso # (Auto) 0.1 PT INR APTT Sodium 144 Potassium 3.6 Chloride 107 Carbon Dioxide 21 L Anion Gap 20 BUN 9 Creatinine 0.9 Est GFR ( Amer) > 60 Est GFR (Non-Af Amer) > 60 Random Glucose 85 Calcium 8.7 Iron TIBC % Saturation Ferritin Total Bilirubin 0.3 AST 34 ALT 39 Alkaline Phosphatase 56 Total Protein 7.6 Albumin 3.9 Globulin 3.7 Albumin/Globulin Ratio 1.0 Triglycerides Cholesterol LDL Cholesterol Direct HDL Cholesterol Vitamin B12 Thyroxine (T4) Total T3 TSH 3rd Generation Urine Color Urine Clarity Urine pH Ur Specific [place] Urine Protein Urine Glucose (UA) Urine Ketones Urine Blood Urine Nitrate Urine Bilirubin Urine Urobilinogen Ur Leukocyte Esterase Urine RBC (Auto) Urine Microscopic WBC Ur Squamous Epith Cells Salicylates < 1.0 Urine Opiates Screen Urine Methadone Screen Acetaminophen < 10.0 L Ur Barbiturates Screen Ur Phencyclidine Scrn Ur Amphetamines Screen U Benzodiazepines Scrn U Oth Cocaine Metabols U Cannabinoids Screen Alcohol, Quantitative 34 H 12/13/17 12/14/17 12/14/17 23:40 01:08 01:08 WBC RBC Hgb Hct MCV MCH MCHC RDW Plt Count MPV Neut % (Auto) Lymph % (Auto) [place] % (Auto) Eos % (Auto) Baso % (Auto) Neut # (Auto) Lymph # (Auto) [place] # (Auto) Eos # (Auto) Baso # (Auto) PT 11.4 INR 1.0 APTT 38.1 H Sodium Potassium Chloride Carbon Dioxide Anion Gap BUN Creatinine Est GFR ( Amer) Est GFR (Non-Af Amer) Random Glucose Calcium Iron TIBC % Saturation Ferritin Total Bilirubin AST ALT Alkaline Phosphatase Total Protein Albumin Globulin Albumin/Globulin Ratio Triglycerides Cholesterol LDL Cholesterol Direct HDL Cholesterol Vitamin B12 Thyroxine (T4) Total T3 TSH 3rd Generation Urine Color Yellow Urine Clarity Slighty-cloudy Urine pH 7.0 Ur Specific [place] 1.019 Urine Protein 100 Urine Glucose (UA) Neg Urine Ketones Negative Urine Blood Negative Urine Nitrate Negative Urine Bilirubin Negative Urine Urobilinogen 0.2-1.0 Ur Leukocyte Esterase Neg Urine RBC (Auto) 1 Urine Microscopic WBC < 1 Ur Squamous Epith Cells < 1 Salicylates Urine Opiates Screen Negative Urine Methadone Screen Negative Acetaminophen Ur Barbiturates Screen Negative Ur Phencyclidine Scrn Negative Ur Amphetamines Screen Negative U Benzodiazepines Scrn Negative U Oth Cocaine Metabols Negative U Cannabinoids Screen Negative Alcohol, Quantitative 12/14/17 12/14/17 06:30 06:30 WBC RBC Hgb Hct MCV MCH MCHC RDW Plt Count MPV Neut % (Auto) Lymph % (Auto) [place] % (Auto) Eos % (Auto) Baso % (Auto) Neut # (Auto) Lymph # (Auto) [place] # (Auto) Eos # (Auto) Baso # (Auto) PT INR APTT Sodium Potassium Chloride Carbon Dioxide Anion Gap BUN Creatinine Est GFR ( Amer) Est GFR (Non-Af Amer) Random Glucose Calcium Iron 35 L TIBC 388 % Saturation 9 L Ferritin 17.3 L Total Bilirubin AST ALT Alkaline Phosphatase Total Protein Albumin Globulin Albumin/Globulin Ratio Triglycerides 121 D Cholesterol 197 LDL Cholesterol Direct 137 H HDL Cholesterol 40 Vitamin B12 242 Thyroxine (T4) 6.09 Total T3 0.900 L TSH 3rd Generation 2.27 Urine Color Urine Clarity Urine pH Ur Specific [place] Urine Protein Urine Glucose (UA) Urine Ketones Urine Blood Urine Nitrate Urine Bilirubin Urine Urobilinogen Ur Leukocyte Esterase Urine RBC (Auto) Urine Microscopic WBC Ur Squamous Epith Cells Salicylates Urine Opiates Screen Urine Methadone Screen Acetaminophen Ur Barbiturates Screen Ur Phencyclidine Scrn Ur Amphetamines Screen U Benzodiazepines Scrn U Oth Cocaine Metabols U Cannabinoids Screen Alcohol, Quantitative
[2017-12-14] MEDS: Pantoprazole 40 mg EC Tab PO SCH (13:56)
[2017-12-14] MEDS: Metoprolol Succinate 25 mg XL Tab PO SCH (13:57)
[2017-12-14 17:30] LABS: FOLATE > 20.0 ng/mL
--- NOTE | 2017-12-15 08:53 | PCM.PYCHPN ---
Psychiatric Progress Note - Psychiatric Progress Note Patient seen today, length of contact: Patient evaluated, case discussed with team, chart reviewed Patient Chief Complaint: "I'm depressed." Problems Identified/Issues Discussed: Patient continues to report feeling depressed. No current suicidal ideation/ plan/intent. He denies current signs/symptoms of ETOH withdrawal. We discussed continued tapering of Ativan. No adverse effects to medications reported. No manic or psychotic symptoms. Psychoeducation provided on the dangers of alcohol abuse and the importance of compliance with treatment and medications. Medication Change: Yes (Taper Ativan) Medical Record Reviewed: Yes Consults ordered or reviewed: Medicine consult Mental Status Examination - Cognitive Function Orientation: Person, Place, Situation, Time Memory: Intact Attention: WNL Concentration: WNL Association: WNL Fund of Knowledge: [facility] Decription of patient's judgement and insights: Chronic poor I/J re: Alcohol abuse - Mood Mood: Depressed - Affect Affect: Constricted, Depressed - Formal Thought Process Formal Thought Process: No Impairment Psychotic Thoughts and Behaviors: No AH/VH/paranoia/delusions - Suicidal Ideation Suicidal Ideation: No - Homicidal Ideation Homicidal Ideation: No Goal/Treatment Plan - Goal/Treatment Plan Need for Continued Stay: Severe depression anxiety, Discharge may exacerbated symptoms Progress Toward Problem(s) and Goals/Treatment Plan: Alcohol Induced Mood Disorder; Alcohol Use Disorder, Severe -Individual and group therapy -Taper Ativan -Thiamine, Folate -Continue Lexapro 10 mg PO Daily -Medicine consult -Nicotine patch -Disposition planning Estimated Date of D/C: 12/17/17 - Smoking Cessation Smoking Cessation Initiated: Yes
[2017-12-15] MEDS: Multivitamin With Minerals Tab PO SCH (09:59)
[2017-12-15] MEDS: Pantoprazole 40 mg EC Tab PO SCH (10:01)
[2017-12-15] MEDS: Metoprolol Succinate 25 mg XL Tab PO SCH (15:15)
--- NOTE | 2017-12-15 21:54 | CP.PCM.PN ---
Subjective - Date & Time of Evaluation Date of Evaluation: 12/15/17 Time of Evaluation: 16:00 Objective - Vital Signs/Intake and Output Vital Signs (last 24 hours): Temp Pulse Resp BP Pulse Ox 98.6 F 71 19 127/71 99 12/15/17 15:40 12/15/17 15:40 12/15/17 15:40 12/15/17 15:40 12/14/17 04:45 - Medications Medications: Current Medications Acetaminophen (Tylenol 325mg Tab) 650 mg PO Q4 PRN PRN Reason: Pain, moderate (4-7) Last Admin: 12/15/17 21:26 Dose: 650 mg Al Hydrox/Mg Hydrox/Simethicone (Maalox Plus 30 Ml) 30 ml PO Q4 PRN PRN Reason: Dyspepsia Albuterol/Ipratropium (Duoneb 3 Mg/0.5 Mg (3 Ml) Ud) 3 ml INH RQ6 PRN PRN Reason: Shortness of Breath Aspirin (Ecotrin) 81 mg PO DAILY [facility] Last Admin: 12/15/17 10:01 Dose: 81 mg Bismuth Subsalicylate (Pepto-Bismol) 524 mg PO Q4 PRN PRN Reason: Diarrhea Last Admin: 12/14/17 08:59 Dose: 524 mg Escitalopram Oxalate (Lexapro) 10 mg PO DAILY [facility] Last Admin: 12/15/17 09:59 Dose: 10 mg Folic Acid (Folic Acid) 1 mg PO DAILY [facility] Last Admin: 12/15/17 09:59 Dose: 1 mg Gabapentin (Neurontin) 100 mg PO TID [facility] Last Admin: 12/15/17 21:36 Dose: 100 mg Lorazepam (Ativan) 0.5 mg PO Q6 PRN PRN Reason: Anixety/Agitation Stop: 12/28/17 04:32 Lorazepam (Ativan) 0.5 mg PO TID [facility] Last Admin: 12/15/17 21:35 Dose: 0.5 mg Losartan Potassium (Cozaar) 50 mg PO DAILY [facility] Last Admin: 12/15/17 15:30 Dose: 50 mg Magnesium Hydroxide (Milk Of Magnesia) 30 ml PO HS PRN PRN Reason: Constipation Metoprolol Succinate (Toprol Xl) 25 mg PO DAILY [facility] Last Admin: 12/15/17 15:15 Dose: 25 mg Multivitamins/Minerals (Therapeutic-M Tab) 1 tab PO DAILY [facility] Last Admin: 12/15/17 09:59 Dose: 1 tab Nicotine (Nicoderm Cq) 1 patch TD DAILY [facility] Last Admin: 12/15/17 10:02 Dose: 1 patch Pantoprazole Sodium (Protonix Ec Tab) 40 mg PO DAILY [facility] Last Admin: 12/15/17 10:01 Dose: 40 mg Tamsulosin HCl (Flomax) 0.4 mg PO HS [facility] Last Admin: 12/15/17 21:35 Dose: 0.4 mg Thiamine HCl (Vitamin B1 Tab) 100 mg PO DAILY [facility] Last Admin: 12/15/17 09:59 Dose: 100 mg Topiramate (Topamax) 50 mg PO BID [facility] Last Admin: 12/15/17 18:50 Dose: 50 mg - Labs Labs: 12/13/17 23:40 12/13/17 23:40 PT 11.4 Seconds (9.8-13.1) 12/13/17 23:40 INR 1.0 (0.9-1.2) 12/13/17 23:40 APTT 38.1 Seconds (25.6-37.1) H 12/13/17 23:40
--- NOTE | 2017-12-16 09:52 | PCM.PYCHPN ---
Psychiatric Progress Note - Psychiatric Progress Note Patient seen today, length of contact: Patient evaluated, case discussed with team, chart reviewed Patient Chief Complaint: "I'm depressed." Problems Identified/Issues Discussed: Patient reports that his mood is improving. No current suicidal ideation/plan/ intent. He denies current signs/symptoms of ETOH withdrawal. We discussed continued tapering of Ativan. No adverse effects to medications reported. No manic or psychotic symptoms. Psychoeducation provided on the dangers of alcohol abuse and the importance of compliance with treatment and medications. We discussed possible discharge tomorrow. Medication Change: Yes (Taper Ativan) Medical Record Reviewed: Yes Consults ordered or reviewed: Medicine consult Mental Status Examination - Cognitive Function Orientation: Person, Place, Situation, Time Memory: Intact Attention: WNL Concentration: WNL Association: WNL Fund of Knowledge: [facility] Decription of patient's judgement and insights: Chronic poor I/J re: Alcohol abuse - Mood Mood: Depressed - Affect Affect: Constricted - Formal Thought Process Formal Thought Process: No Impairment Psychotic Thoughts and Behaviors: No AH/VH/paranoia/delusions - Suicidal Ideation Suicidal Ideation: No - Homicidal Ideation Homicidal Ideation: No Goal/Treatment Plan - Goal/Treatment Plan Need for Continued Stay: Discharge may exacerbated symptoms Progress Toward Problem(s) and Goals/Treatment Plan: Alcohol Induced Mood Disorder; Alcohol Use Disorder, Severe -Individual and group therapy -Taper Ativan -Thiamine, Folate -Continue Lexapro 10 mg PO Daily -Medicine consult -Nicotine patch -Disposition planning Estimated Date of D/C: 12/17/17 - Smoking Cessation Smoking Cessation Initiated: Yes
[2017-12-16] MEDS: Multivitamin With Minerals Tab PO SCH (09:58)
[2017-12-16] MEDS: Metoprolol Succinate 25 mg XL Tab PO SCH (09:59)
[2017-12-16] MEDS: Pantoprazole 40 mg EC Tab PO SCH (09:59)
--- NOTE | 2017-12-16 11:57 | CP.PCM.PN ---
Subjective - Date & Time of Evaluation Date of Evaluation: 12/16/17 Time of Evaluation: 11:00 Objective - Vital Signs/Intake and Output Vital Signs (last 24 hours): Temp Pulse Resp BP Pulse Ox 97.2 F L 58 L 19 136/66 99 12/16/17 06:00 12/16/17 10:00 12/16/17 06:00 12/16/17 10:00 12/14/17 04:45 - Medications Medications: Current Medications Acetaminophen (Tylenol 325mg Tab) 650 mg PO Q4 PRN PRN Reason: Pain, moderate (4-7) Last Admin: 12/15/17 21:26 Dose: 650 mg Al Hydrox/Mg Hydrox/Simethicone (Maalox Plus 30 Ml) 30 ml PO Q4 PRN PRN Reason: Dyspepsia Albuterol/Ipratropium (Duoneb 3 Mg/0.5 Mg (3 Ml) Ud) 3 ml INH RQ6 PRN PRN Reason: Shortness of Breath Aspirin (Ecotrin) 81 mg PO DAILY [facility] Last Admin: 12/16/17 10:00 Dose: 81 mg Bismuth Subsalicylate (Pepto-Bismol) 524 mg PO Q4 PRN PRN Reason: Diarrhea Last Admin: 12/14/17 08:59 Dose: 524 mg Escitalopram Oxalate (Lexapro) 10 mg PO DAILY [facility] Last Admin: 12/16/17 09:58 Dose: 10 mg Folic Acid (Folic Acid) 1 mg PO DAILY [facility] Last Admin: 12/15/17 09:59 Dose: 1 mg Gabapentin (Neurontin) 100 mg PO TID [facility] Last Admin: 12/16/17 09:58 Dose: 100 mg Lorazepam (Ativan) 0.5 mg PO Q6 PRN PRN Reason: Anixety/Agitation Stop: 12/28/17 04:32 Last Admin: 12/16/17 10:01 Dose: 0.5 mg Lorazepam (Ativan) 0.5 mg PO BID [facility] Losartan Potassium (Cozaar) 50 mg PO DAILY [facility] Last Admin: 12/16/17 10:00 Dose: 50 mg Magnesium Hydroxide (Milk Of Magnesia) 30 ml PO HS PRN PRN Reason: Constipation Metoprolol Succinate (Toprol Xl) 25 mg PO DAILY [facility] Last Admin: 12/16/17 09:59 Dose: 25 mg Multivitamins/Minerals (Therapeutic-M Tab) 1 tab PO DAILY [facility] Last Admin: 12/16/17 09:58 Dose: 1 tab Nicotine (Nicoderm Cq) 1 patch TD DAILY [facility] Last Admin: 12/16/17 10:00 Dose: 1 patch Pantoprazole Sodium (Protonix Ec Tab) 40 mg PO DAILY [facility] Last Admin: 12/16/17 09:59 Dose: 40 mg Tamsulosin HCl (Flomax) 0.4 mg PO HS [facility] Last Admin: 12/15/17 21:35 Dose: 0.4 mg Thiamine HCl (Vitamin B1 Tab) 100 mg PO DAILY [facility] Last Admin: 12/16/17 09:58 Dose: 100 mg Topiramate (Topamax) 50 mg PO BID [facility] Last Admin: 12/16/17 09:58 Dose: 50 mg - Labs Labs: 12/13/17 23:40 12/13/17 23:40 PT 11.4 Seconds (9.8-13.1) 12/13/17 23:40 INR 1.0 (0.9-1.2) 12/13/17 23:40 APTT 38.1 Seconds (25.6-37.1) H 12/13/17 23:40
[2017-12-16 15:50] VITALS: RESP 20
--- NOTE | 2017-12-16 17:59 | RAD ---
PROCEDURE: Radiographs of the Left Shoulder HISTORY: Pain. No history of recent/ related trauma provided COMPARISON: [facility] prior. FINDINGS: BONES: Normal. No fracture. JOINTS: Normal. Glenohumeral and acromioclavicular joints preserved. No osteoarthritis. SOFT TISSUES: Normal. OTHER FINDINGS: None. IMPRESSION: No significant or acute findings to account for/ related to the clinical presentation.
[2017-12-17 06:22] VITALS: BP 155/79; PULSE 64; TEMP 97.8
--- NOTE | 2017-12-17 08:33 | PCM.PYCHDC ---
Mental Status Examination - Mental Status Examination Orientation: Person, Place, Situation, Time Memory: Intact Mood: Neutral Affect: Broad Speech: Appropriate Attention: WNL Concentration: WNL Association: WNL Fund of Knowledge: WNL Formal Thought Process: No Impairment Description of patient's judgement and insight: Chronic poor I/J re: Alcohol abuse; psychoeducation and motivational interviewing provided; otherwise fair I/J Psychotic Thoughts and Behaviors: No AH/VH/paranoia/delusions Suicidal Ideation: No Current Homicidal Ideation?: No Discharge Summary - Discharge Note Reason for Hospitalization: HPI: 62 y/o male presents w/ worsening depression and self reported suicide attempt by taking 3 tablets of Topamax in the context of chronic alcohol abuse and non-compliance with any psychiatric or substance abuse treatment. He drinks ETOH daily. He reports depression, feelings of helplessness/hopelessness, low energy, low motivation. NO AH/VH/paranoia. He denies current suicidal ideation/plan/intent. PPHx: Multiple past psychiatric admissions for depression and ETOH abuse. Recently hospitalized twice this past month at [facility]. PMHx: H/o seizure disorder, HTN, Asthma, COPD, HLD, PAD, PVD, CAD (s/p bypass), BPH, DM SHx: On disability, has 6 children (39yo, 29yo, 27yo, 27yo, 17yo, 16yo); Drinks 1 pint rum/day; smokes 1ppd ALL: NKDA Consultations:: List each consultation separately and include: 1. Reason for request. 2. Findings. 3. Follow-up Consultations: Medicine consult Summary of Hospital Course include:: 1. Description of specific treatment plan utilized for patients during their course of treatmen. 2. Summarize the time- course for resolution of acute symptoms and/or regressed behaviors. 3. Describe issues identified and worked on during hospitalization. 4. Describe medication utilized. 5. Describe medical problems identified and treated. 6. Reassessment of suicide risk Summary of Hospital Course: Patient was admitted to the psychiatry unit. Individual and group therapy were provided. Patient was restarted on Lexapro 10 mg PO Daily. He reports taht his mood has improved and denies ideation to harm himself or others. He is currently psychiatrically stable for discharge. No current signs/symptoms of ETOH withdrawal. Psychoeducation provided on the dangers of alcohol abuse. - Diagnosis (1) Alcohol abuse with alcohol-induced mood disorder Current Visit: No Status: Chronic (2) Alcohol abuse Current Visit: No Status: Chronic - Final Diagnosis (DSM 5) Condition upon Discharge: STABLE DSM 5: Alcohol Induced Mood Disorder; Alcohol Use Disorder, Severe Disposition: HOME/ ROUTINE Follow-up Treatment Plan: Alcohol Induced Mood Disorder; Alcohol Use Disorder, Severe -Thiamine, Folate -Continue Lexapro 10 mg PO Daily -Medicine consult -Discharge w/ outpatient follow-up Prescriptions/Medication Reconciliation: Escitalopram [Lexapro] 10 mg PO DAILY #30 tab - Smoking Cessation Smoking Cessation Medication prescribed: Yes Reason for not providing: Nicotine patch provided during admission; pt declined prescription - Antipsychotic Medications Pt discharged on 2 or more routine antipsychotic medications: No
[2017-12-17] MEDS: Pantoprazole 40 mg EC Tab PO SCH (08:54)
[2017-12-17] MEDS: Multivitamin With Minerals Tab PO SCH (08:55)
[2017-12-17] MEDS: Metoprolol Succinate 25 mg XL Tab PO SCH (08:57)
== END 2017-12-17 03:30 | disposition home or self-care (01) | DRG 897 ==
LOC: H.ER 18:19 → H.ERHOLD 12-14 01:36 → H.STEP 12-14 04:03
PROVIDERS: ADMIT Psychiatry & Neurology Psychiatry; ATTEND Psychiatry & Neurology Psychiatry
PROC: GZHZZZZ Group Psychotherapy (ICD-10-PCS; principal; 2017-12-14)
PROC: GZ51ZZZ Individual Psychotherapy, Behavioral (ICD-10-PCS; 2017-12-14)
DX: F10.24 Alcohol dependence with alcohol-induced mood disorder (principal); F17.200 Nicotine dependence, unspecified, uncomplicated; F31.9 Bipolar disorder, unspecified; E11.51 Type 2 diabetes mellitus with diabetic peripheral angiopathy without gangrene; G40.909 Epilepsy, unspecified, not intractable, without status epilepticus; G47.30 Sleep apnea, unspecified; I10 Essential (primary) hypertension; E78.5 Hyperlipidemia, unspecified; I25.10 Atherosclerotic heart disease of native coronary artery without angina pectoris; J43.9 Emphysema, unspecified; N40.0 Benign prostatic hyperplasia without lower urinary tract symptoms; Z91.81 History of falling; Z79.82 Long term (current) use of aspirin; Z79.899 Other long term (current) drug therapy; Z87.01 Personal history of pneumonia (recurrent); Z91.14 Patient's other noncompliance with medication regimen; Z91.19 Patient's noncompliance with other medical treatment and regimen; Z95.1 Presence of aortocoronary bypass graft; Z95.5 Presence of coronary angioplasty implant and graft; F41.9 Anxiety disorder, unspecified; G43.909 Migraine, unspecified, not intractable, without status migrainosus; K29.70 Gastritis, unspecified, without bleeding; K75.9 Inflammatory liver disease, unspecified; M19.90 Unspecified osteoarthritis, unspecified site; E78.00 Pure hypercholesterolemia, unspecified

== ENCOUNTER 2018-01-19 19:31 | Emergency (ER) | payer OTHER ==
[2018-01-19 19:31] VITALS: BMI 29.2
[2018-01-19] MEDS ORDERED: Multivitamin (MVI) 10 ML, Thiamine 100 MG, Folic Acid 1 MG in Sodium Chloride 0.9% 1,00... IV ONE (19:49)
[2018-01-19] MEDS ORDERED: Famotidine 20mg/50ml 20 MG/50 ML BAG IVPB ONE ×2 (20:18→20:30)
[2018-01-19 20:25] LABS: VENOUS BLOOD GAS PCO2 44 mmHg (40-60); VENOUS BLOOD GAS PO2 17 mm/Hg (30-55); VENOUS BLOOD PH 7.44 (7.32-7.43)
[2018-01-19] MEDS ORDERED: Sodium Chloride 0.9% 1,000 ML IV STA (20:26)
[2018-01-19] MEDS ORDERED: Potassium Chloride 20 mEq ER Tab PO STA (20:26)
[2018-01-19 20:29] LABS: BASO # 0.2 K/uL (0.0-0.2); BASO % 2.7 % (0.0-2.0); EOS # 0.1 K/uL (0.0-0.7); EOS % 1.2 % (0.0-4.0); LYMPH # 2.2 K/uL (1.0-4.3); LYMPH % 29.4 % (20.0-40.0); MEAN CELL VOLUME 78.3 fl (80.0-94.0); MEAN CORPUSCULAR HEMOGLOBIN 25.1 pg (27.0-31.0); MEAN CORPUSCULAR HGB CONC 32.1 g/dL (33.0-37.0); MONO # 0.6 K/uL (0.0-0.8); MONO % 8.6 % (0.0-10.0); NEUT # 4.3 K/uL (1.8-7.0); NEUT % 58.1 % (50.0-75.0); RBC 4.76 Mil/uL (4.40-5.90); RED CELL DISTRIBUTION WIDTH 17.8 % (11.5-14.5); WHITE BLOOD COUNT 7.3 K/uL (4.8-10.8)
[2018-01-19] MEDS ORDERED: Potassium Chloride 20 mEq ER Tab PO ONE (20:42)
[2018-01-19 20:59] LABS: B-TYPE NATRIURETIC PEPTIDE 355 pg/ml (0-900); PROTHROMBIN TIME 10.8 Seconds (9.8-13.1)
[2018-01-19 21:00] LABS: PARTIAL THROMBOPLASTIN TIME 38.3 Seconds (25.6-37.1)
[2018-01-19 21:05] LABS: ALB/GLOB RATIO 1.1 (1.0-2.1); ALBUMIN 4.2 g/dL (3.5-5.0); ALT/SGPT 57 U/L (21-72); AST/SGOT 120 U/L (17-59); BLOOD UREA NITROGEN 8 mg/dl (9-20); GFR AFRICAN-AMERICAN > 60; GFR NON-AFRICAN AMERICAN > 60; LIPASE 418 U/L (23-300)
[2018-01-19] MEDS ORDERED: Iohexol 300 100 ML IJ ONE (21:30)
[2018-01-19] MEDS ORDERED: Sodium Chloride 0.9% 100 ML ONE (21:31)
--- NOTE | 2018-01-19 22:00 | ED PDOC ---
HPI: General Adult Time Seen by Provider: 01/19/18 19:40 Chief Complaint (Nursing): Shortness Of Breath Chief Complaint (Provider): Shortness of breath History Per: Patient History/Exam Limitations: no limitations Onset/Duration Of Symptoms: Days (x2) Current Symptoms Are (Timing): Still Present Additional Complaint(s): Rhett Pineda is a 62 year old male, with a past medical history of HTN, diabetes, CAD, hypercholesterolemia, alcoholism and opiate abuse, who presents to the emergency department via EMS stating "I don't feel good," patient has multiple complaints and says for the last x2 days he's had shortness of breath, abdominal pain, chest pain, vomiting and now retching with inability to eat. Patient reports he drank alcohol today and states he might also have alcohol poisoning. Patient was just in [facility] x2 days ago for substance abuse and requesting detox. No further medical complaints. PMD: Mitul Boo Past Medical History Reviewed: Historical Data, Nursing Documentation, Vital Signs Vital Signs: Last Vital Signs Temp 97.8 F 01/20/18 06:16 Pulse 76 01/20/18 06:16 Resp 18 01/20/18 06:16 BP 135/83 01/20/18 06:16 Pulse Ox 98 01/20/18 06:16 - Medical History PMH: Anxiety, Arthritis, Asthma, Benign Prostatic Hyperplasia, Bipolar Disorder , Bronchitis, CAD, Cardia Arrhythmia, COPD, Depression, Diabetes, Emphysema, Gastritis, Hepatitis (PATIENT STATED HE HAS HEPATITIS BUT COULD NOT RECALL WHICH ONE), HTN, Hypercholesterolemia, Hyperlipidemia, Migraine, Pancreatitis, Pneumonia, Seizures (ETOH related), Sleep Apnea Denies: Anemia, Diverticulitis, Fractures, HIV, Hyperthyroidism, Hypothyroidism, Pulmonary Embolism, Chronic Kidney Disease, Sickle Cell Disease , Sexually Transmitted Disease Other PMH: Prior history obtained from previous charts - Surgical History Surgical History: CABG ((quadruple bypass) 2010), Coronary Stent - Family History Family History: States: Unknown Family Hx - Social History Current smoker - smoking cessation education provided: Yes (Heavy smoker) Alcohol: > 2 Drinks/Day Drugs: Denies - Immunization History Hx Tetanus Toxoid Vaccination: Yes Hx Influenza Vaccination: Yes Hx Pneumococcal Vaccination: Yes - Home Medications Home Medications: Ambulatory Orders Medication Instructions Recorded Topiramate [Topamax] 50 mg PO BID #60 tab 09/10/17 Pantoprazole Sodium [Protonix] 40 mg PO DAILY 09/19/17 Folic Acid 1 mg PO DAILY tab 09/23/17 Gabapentin [Neurontin] 100 mg PO TID #90 cap 09/23/17 Losartan [Cozaar] 50 mg PO DAILY #30 tab 09/23/17 Tamsulosin HCl [Flomax] 0.4 mg PO HS #30 cap.er.24h 09/23/17 Thiamine [Vitamin B1 Tab] 100 mg PO DAILY tab 09/23/17 Aspirin [Ecotrin] 81 mg PO DAILY tabec 11/15/17 Metoprolol Succinate [Toprol XL] 25 mg PO DAILY tab 11/15/17 Multimineral/Multivitamin 1 tab PO DAILY tab 11/30/17 [Therapeutic-M Tab] Albuterol/Ipratropium [Duoneb 3 3 ml INH RQ6 PRN 12/04/17 mg/0.5 mg (3 ml) UD] Escitalopram [Lexapro] 10 mg PO DAILY #30 tab 12/16/17 - Allergies Allergies/Adverse Reactions: Allergies Allergy/AdvReac Type Severity Reaction Status Date / Time No Known Allergies Allergy Verified 01/19/18 19:36 Review of Systems ROS Statement: Except As Marked, All Systems Reviewed And Found Negative Constitutional: Positive for: Chills, Other (body aches) Cardiovascular: Positive for: Chest Pain Respiratory: Positive for: Cough, Shortness of Breath Gastrointestinal: Positive for: Nausea, Vomiting, Abdominal Pain Neurological: Positive for: Headache Psych: Positive for: Anxiety, Depression Physical Exam - Reviewed Nursing Documentation Reviewed: Yes Vital Signs Reviewed: Yes - Physical Exam Appears: Positive for: Uncomfortable, In Acute Distress Head Exam: Positive for: ATRAUMATIC, NORMOCEPHALIC Skin: Positive for: Normal Color, Warm, Dry Eye Exam: Positive for: Normal appearance, EOMI, PERRL ENT: Positive for: Pharynx Is (clear), Other (dry mucous membranes) Neck: Positive for: Painless ROM Cardiovascular/Chest: Positive for: Regular Rate, Rhythm. Negative for: Murmur Respiratory: Positive for: Normal Breath Sounds (clear w/ loud upper airway noises). Negative for: Respiratory Distress Gastrointestinal/Abdominal: Positive for: Soft, Tenderness (diffuse), Distended. Negative for: Mass, Guarding, Rebound Back: Positive for: Normal Inspection. Negative for: L CVA Tenderness, R CVA Tenderness, Vertebral Tenderness Extremity: Positive for: Normal ROM (upper and lower extremities). Negative for : Deformity, Swelling Neurologic/Psych: Positive for: Alert, Oriented (x3), Mood/Affect (anxious). Negative for: Motor/Sensory Deficits - Laboratory Results Result Diagrams: 01/19/18 20:25 01/19/18 20:25 - ECG O2 Sat by Pulse Oximetry: 100 (RA) Pulse Ox Interpretation: Normal Medical Decision Making Medical Decision Making: Initial Impression: alcoholism w/ multiple complaints. Differential includes but not limited to alcohol intoxication, withdrawal, dehydration, COPD exacerbation, gastritis, enteritis, electrolyte abnormality. Initial Plan: --VBG --Abd & Pelvis IV Contrast [CT] --EKG --Alcohol serum --Ammonia --B-Type Natriuretic Peptide --CMP --Drug screen, urine --Lipase --Magnesium --Phosphorus --Troponin I --Urine dipstick --CBC w/ differential --PTT --PT --Chest portable [RAD] --Glucose, POC --Sodium Chloride 0.9% 1,000 ml [M.V.I -12 Inj] 10 ml [Vitamin B1 Inj] 100 mg Folic Acid 1 mg IV 150 mls/hr --K-Dur 20mEq ER Tab 20 meq PO --Sodium Chloride 1,000 ml IV 1,000 mls/hr --Pepcid 20 mg IVP --Pepcid 20 mg/50ml Premix 20 mg in 50 ml IVPB --Zofran ODT 4 mg PO --Reevaluation Time: 2300 CT Abdomen and Pelvis FINDINGS: Lung bases: Unremarkable. No mass. No consolidation. Mediastinum: A small hiatal hernia is present. ABDOMEN: Liver: There is a diffuse decrease in hepatic parenchymal density, consistent with fatty infiltration. Gallbladder and bile ducts: Unremarkable. No calcified stones. No ductal dilation. Pancreas: Unremarkable. No mass. No ductal dilation. Spleen: Unremarkable. No splenomegaly. Adrenals: Unremarkable. No mass. Kidneys and ureters: There is a complex cystic lesion in the upper pole of the right kidney measuring 2.4 x 2.3 x 2.5 cm. Stable since 2014. There is a 10 mm cyst in the left kidney , unchanged. No hydronephrosis. Stomach and bowel: There is no wall thickening or pericolonic stranding to suggest colitis. Mildly prominent gas-filled loops of small bowel. No small bowel obstruction. PELVIS: Appendix: A normal appendix is identified. Bladder: Unremarkable. No mass. Reproductive: Unremarkable as visualized. ABDOMEN and PELVIS: Intraperitoneal space: Unremarkable. No free air. No significant fluid collection. Bones/joints: No acute fracture. No dislocation. Soft tissues: Unremarkable. Vasculature: The vasculature demonstrates diffuse severe atherosclerotic calcification. No abdominal aortic aneurysm. Lymph nodes: Unremarkable. No enlarged lymph nodes. IMPRESSION: No evidence of an acute intra-abdominal pelvic abnormality. Fatty liver. Complex cystic lesion in the upper pole of the right kidney, stable since 2014. Left renal cyst. Time: 32 Patient signed out to Dr. Ma pending clinical sobriety. ----- Scribe Attestation: Documented by Mika Alfaro, acting as a scribe for Mariel Soares MD. Provider Scribe Attestation: All medical record entries made by the Scribe were at my direction and personally dictated by me. I have reviewed the chart and agree that the record accurately reflects my personal performance of the history, physical exam, medical decision making, and the department course for this patient. I have also personally directed, reviewed, and agree with the discharge instructions and disposition. Disposition - Clinical Impression Clinical Impression: Alcohol abuse with intoxication - Patient ED Disposition Is Patient to be Admitted: Transfer of Care - Disposition Disposition: Transfer of Care Disposition Time: 00:34 Condition: STABLE Instructions: Alcohol Abuse and Alcoholism (DC) Forms: [employer] (Persian) Patient Signed Over To: Matthew Ma
[2018-01-19 22:15] LABS: BARBITURATES, UR NEGATIVE (NEGATIVE); BENZODIAZEPINES, UR NEGATIVE (NEGATIVE); OPIATES, UR NEGATIVE (NEGATIVE); PHENCYCLIDINE, UR NEGATIVE (NEGATIVE)
--- NOTE | 2018-01-19 22:58 | CT ---
EXAM: CT Abdomen and Pelvis With Intravenous Contrast CLINICAL HISTORY: 62 years old, male; Pain; Abdominal pain; Generalized; Additional info: Abd pain TECHNIQUE: Axial computed tomography images of the abdomen and pelvis with intravenous contrast. All CT scans at this facility use one or more dose reduction techniques, viz.: automated exposure control; ma/kV adjustment per patient size (including targeted exams where dose is matched to indication; i.e. head); or iterative reconstruction technique. Coronal and sagittal reformatted images were created and reviewed. CONTRAST: 90 mL of administered intravenously. COMPARISON: CT - ABD PELVIS IV CONTRAST ONLY 2015-05-12 00:57 FINDINGS: Lung bases: Unremarkable. No mass. No consolidation. Mediastinum: A small hiatal hernia is present. ABDOMEN: Liver: There is a diffuse decrease in hepatic parenchymal density, consistent with fatty infiltration. Gallbladder and bile ducts: Unremarkable. No calcified stones. No ductal dilation. Pancreas: Unremarkable. No mass. No ductal dilation. Spleen: Unremarkable. No splenomegaly. Adrenals: Unremarkable. No mass. Kidneys and ureters: There is a complex cystic lesion in the upper pole of the right kidney measuring 2.4 x 2.3 x 2.5 cm. Stable since 2014. There is a 10 mm cyst in the left kidney, unchanged. No hydronephrosis. Stomach and bowel: There is no wall thickening or pericolonic stranding to suggest colitis. Mildly prominent gas-filled loops of small bowel. No small bowel obstruction. PELVIS: Appendix: A normal appendix is identified. Bladder: Unremarkable. No mass. Reproductive: Unremarkable as visualized. ABDOMEN and PELVIS: Intraperitoneal space: Unremarkable. No free air. No significant fluid collection. Bones/joints: No acute fracture. No dislocation. Soft tissues: Unremarkable. Vasculature: The vasculature demonstrates diffuse severe atherosclerotic calcification. No abdominal aortic aneurysm. Lymph nodes: Unremarkable. No enlarged lymph nodes. IMPRESSION: No evidence of an acute intra-abdominal pelvic abnormality. Fatty liver. Complex cystic lesion in the upper pole of the right kidney, stable since 2014. Left renal cyst.
--- NOTE | 2018-01-20 00:48 | ED PDOC ---
- Laboratory Results Result Diagrams: 01/19/18 20:25 01/19/18 20:25 - ECG O2 Sat by Pulse Oximetry: 100 (RA) Pulse Ox Interpretation: Normal Medical Decision Making Medical Decision Making: Time: 29 Patient signed out to me by Dr. Soares pending clinical sobriety. Scribe Attestation: Documented by Esperanza Vo, acting as a scribe for Matthew Ma MD. Provider Scribe Attestation: All medical record entries made by the Scribe were at my direction and personally dictated by me. I have reviewed the chart and agree that the record accurately reflects my personal performance of the history, physical exam, medical decision making, and the department course for this patient. I have also personally directed, reviewed, and agree with the discharge instructions and disposition. Disposition - Clinical Impression Clinical Impression: Alcohol abuse with intoxication - POA Present On Arrival: None - Disposition Disposition: Routine/Home Disposition Time: 07:00 Condition: STABLE Instructions: Alcohol Abuse and Alcoholism (DC) Forms: [employer] (South African)
[2018-01-20 06:26] VITALS: BP 135/83; PULSE 76; RESP 18; TEMP 97.8
--- NOTE | 2018-01-20 09:26 | RAD ---
HISTORY: cp sob COMPARISON: 12/03/2017 FINDINGS: LUNGS: No active pulmonary disease. PLEURA: No significant pleural effusion identified, no pneumothorax apparent. CARDIOVASCULAR: Status post CABG. Normal heart size. No congestive change. OSSEOUS STRUCTURES: No significant abnormalities. VISUALIZED UPPER ABDOMEN: Normal. OTHER FINDINGS: None. IMPRESSION: No active disease.
--- NOTE | 2018-01-20 11:57 | CARD ---
APPROVED REPORT EKG Measurement Heart [id number] ID [id number] <Conclusion> Sinus rhythm with 1st degree AV block RSR' or QR pattern in V1 suggests right ventricular conduction delay T wave abnormality, consider inferolateral ischemia Abnormal ECG
[2018-01-20 23:33] VITALS: O2SAT 100
== END 2018-01-20 06:22 | disposition home or self-care (01) ==
LOC: H.ER 19:31
DX: F10.229 Alcohol dependence with intoxication, unspecified (principal); E11.9 Type 2 diabetes mellitus without complications; E78.00 Pure hypercholesterolemia, unspecified; F17.200 Nicotine dependence, unspecified, uncomplicated; Z86.59 Personal history of other mental and behavioral disorders; I10 Essential (primary) hypertension; I25.10 Atherosclerotic heart disease of native coronary artery without angina pectoris; J43.9 Emphysema, unspecified; J45.909 Unspecified asthma, uncomplicated; N40.0 Benign prostatic hyperplasia without lower urinary tract symptoms; Z95.1 Presence of aortocoronary bypass graft; Z95.5 Presence of coronary angioplasty implant and graft; Z79.82 Long term (current) use of aspirin
CPT/HCPCS: 71045; 74177; 80053; 82140; 82803; 82948; 83690; 83735; 83880; 84100; 84484; 85025; 85610; 85730; 93005; 96365; 96366; 96367; 99285; G0480; J3411; J7040; Q9967

== ENCOUNTER 2018-08-27 21:50 | Emergency (ER) | payer OTHER ==
[2018-08-27 21:50] VITALS: BMI 27.2
--- NOTE | 2018-08-27 22:29 | ED PDOC ---
HPI: Psych/Substance Abuse Time Seen by Provider: 08/27/18 22:05 Chief Complaint (Nursing): Alcohol Ingestion Chief Complaint (Provider): Alcohol Ingestion ED Caveat: Intoxicated History Per: EMS History/Exam Limitations: intoxication Current Symptoms Are (Timing): Still Present Modifying Factor(s): Alcohol Additional Complaint(s): 62 year old male, well-known to this ED for multiple visits of drug and alcohol abuse, arrives via EMS for an evaluation of intoxication. Patient is a poor historian secondary to current clinical condition. Otherwise, he does not offer further medical complaints. PCP: none provided Past Medical History Reviewed: Historical Data, Nursing Documentation, Vital Signs Vital Signs: Last Vital Signs Temp 98 F 08/27/18 21:58 Pulse 82 08/27/18 21:58 Resp 16 08/27/18 21:58 BP 137/81 08/27/18 21:58 Pulse Ox 99 08/27/18 21:58 - Medical History PMH: Anxiety, Arthritis, Asthma, Benign Prostatic Hyperplasia, Bipolar Disorder, Bronchitis, CAD, Cardia Arrhythmia, COPD, Depression, Diabetes, Emphysema, Gastritis, Hepatitis (PATIENT STATED HE HAS HEPATITIS BUT COULD NOT RECALL WHICH ONE), HTN, Hypercholesterolemia, Hyperlipidemia, Migraine, Pancreatitis, Pneumonia, Seizures (ETOH related), Sleep Apnea Denies: Anemia, Diverticulitis, Fractures, HIV, Hyperthyroidism, Hypothyroidism, Pulmonary Embolism, Chronic Kidney Disease, Sickle Cell Disease, Sexually Transmitted Disease - Surgical History Surgical History: CABG ((quadruple bypass) 2010), Coronary Stent - Family History Family History: States: Unknown Family Hx - Immunization History Hx Tetanus Toxoid Vaccination: Yes Hx Influenza Vaccination: No Hx Pneumococcal Vaccination: Yes - Home Medications Home Medications: Ambulatory Orders Medication Instructions Recorded Topiramate [Topamax] 50 mg PO BID #60 tab 09/10/17 Pantoprazole Sodium [Protonix] 40 mg PO DAILY 09/19/17 Folic Acid 1 mg PO DAILY tab 09/23/17 Gabapentin [Neurontin] 100 mg PO TID #90 cap 09/23/17 Losartan [Cozaar] 50 mg PO DAILY #30 tab 09/23/17 Thiamine [Vitamin B1 Tab] 100 mg PO DAILY tab 09/23/17 Aspirin [Ecotrin] 81 mg PO DAILY tabec 11/15/17 Multimineral/Multivitamin 1 tab PO DAILY tab 11/30/17 [Therapeutic-M Tab] Albuterol/Ipratropium [Duoneb 3 3 ml INH RQ6 PRN 12/04/17 mg/0.5 mg (3 ml) UD] Escitalopram [Lexapro] 10 mg PO DAILY #30 tab 12/16/17 Ibuprofen 200 mg PO PRN PRN 04/25/18 Pravastatin Sodium 40 mg PO HS 04/25/18 Acamprosate Calcium 2 tab PO TID 04/26/18 Cilostazol [Pletal] 100 mg PO BID #60 tab 08/16/18 Tamsulosin [Flomax] 0.4 mg PO DAILY #30 cap 08/16/18 - Allergies Allergies/Adverse Reactions: Allergies Allergy/AdvReac Type Severity Reaction Status Date / Time No Known Allergies Allergy Verified 08/27/18 21:57 Review of Systems Review Of Systems: ROS cannot be obtained secondary to pt's inabilty to answer questions. Physical Exam - Reviewed Nursing Documentation Reviewed: Yes Vital Signs Reviewed: Yes - Physical Exam Appears: Positive for: No Acute Distress Head Exam: Positive for: ATRAUMATIC, NORMAL INSPECTION, NORMOCEPHALIC Skin: Positive for: Normal Color Eye Exam: Positive for: Normal appearance Neck: Positive for: Normal Cardiovascular/Chest: Positive for: Regular Rate, Rhythm Respiratory: Positive for: Normal Breath Sounds. Negative for: Wheezing, Respiratory Distress Gastrointestinal/Abdominal: Positive for: Normal Exam, Soft. Negative for: Tenderness Extremity: Positive for: Normal ROM (upper/lower) Neurologic/Psych: Positive for: Alert, Mood/Affect (sleepy; ), Gait (unsteady), Other (slurred speech; (+) AOB). Negative for: Motor/Sensory Deficits - ECG O2 Sat by Pulse Oximetry: 99 (RA) Pulse Ox Interpretation: Normal Medical Decision Making Medical Decision Making: Initial Impression: 62 year old male with alcohol intoxication. Initial Plan: * Alcohol serum * Drug screen * Accucheck Time: 2245 --Accucheck: 88 mg/dL. --Alcohol: 355 mg/dL. Time: 0 --Patient becomes increasingly aggressive and uncooperative. IM Haldol and Ativan initiated. Time: 0700 --Patient endorsed to Dr. oMser, pending clinical sobriety. Scribe Attestation: Documented by Funmilayo Caceres, acting as a scribe for Matthew Ma MD. Provider Scribe Attestation: All medical record entries made by the Scribe were at my direction and personally dictated by me. I have reviewed the chart and agree that the record accurately reflects my personal performance of the history, physical exam, medical decision making, and the department course for this patient. I have also personally directed, reviewed, and agree with the discharge instructions and disposition. Disposition - Clinical Impression Clinical Impression: Alcohol abuse with intoxication - Patient ED Disposition Is Patient to be Admitted: Transfer of Care - Disposition Disposition: Transfer of Care Disposition Time: 05:35 Condition: STABLE Instructions: Alcohol Use - When Is Drinking a Problem? Forms: [employer] (Portuguese) Patient Signed Over To: Diamond Moser Handoff Comments: pending sobriety
--- NOTE | 2018-08-28 07:07 | ED PDOC ---
- ECG O2 Sat by Pulse Oximetry: 100 (RA) Pulse Ox Interpretation: Normal Medical Decision Making Medical Decision Making: Time: 0700 -- Patient endorsed to me by Dr. Moser, pending sobriety. _ Scribe Attestation: Documented by Max Green, acting as a scribe for Diamond Moser MD. Provider Scribe Attestation: All medical record entries made by the Scribe were at my direction and personally dictated by me. I have reviewed the chart and agree that the record accurately reflects my personal performance of the history, physical exam, medical decision making, and the department course for this patient. I have also personally directed, reviewed, and agree with the discharge instructions and disposition. Disposition - Clinical Impression Clinical Impression: Alcohol abuse with intoxication - Disposition Condition: STABLE Instructions: Alcohol Use - When Is Drinking a Problem? Forms: [employer] (Guamanian)
[2018-08-28 11:19] VITALS: BP 138/86; PULSE 85; RESP 17; TEMP 98.3; O2SAT 97
== END 2018-08-28 11:41 | disposition home or self-care (01) ==
LOC: H.ER 21:50
DX: F10.129 Alcohol abuse with intoxication, unspecified (principal); E11.9 Type 2 diabetes mellitus without complications; E78.00 Pure hypercholesterolemia, unspecified; I25.10 Atherosclerotic heart disease of native coronary artery without angina pectoris; Z95.1 Presence of aortocoronary bypass graft; Z95.5 Presence of coronary angioplasty implant and graft; F31.9 Bipolar disorder, unspecified; I10 Essential (primary) hypertension
CPT/HCPCS: 82948; 96372; 99284; G0480; J1630; J2060